=== PATIENT | female | born 1980 | race Caucasian/White ===

== ENCOUNTER 2020-01-15 14:15 | Outpatient (REF) | payer OTHER, MEDICAID, SELFPAY ==
[2020-01-15 15:33] LABS: Hematocrit 37.2 % (37-47); Hemoglobin 12.5 g/dl (12.0-16.0); Mean Corpuscular HGB Conc 33.6 g/dl (31.0-35.0); Mean Corpuscular Hemoglobin 29.8 pg (27.0-33.0); Mean Corpuscular Volume 88.6 fL (80-98); Mean Platelet Volume 10.2 fL (9.4-12.3); Platelet Count 272 X10*3/uL (160-400); Red Cell Distribution Width 12.2 % (11.0-16.0); White Blood Count 3.8 X10*3/uL (4.8-10.8)
[2020-01-15 16:40] LABS: HCG Quantitative < 2 mIU/mL; Thyroid Stimulating Hormone 1.36 mIU/mL (0.32-4.0)
[2020-01-16 09:27] LABS: CT PCR NOT DETECTED (Not Detect.); NG PCR NOT DETECTED (Not Detect.)
== END 2020-01-15 14:16 | disposition home or self-care (01) ==
LOC: HO.LAB 14:15
PROVIDERS: PCP Internal Medicine; Visit Provider Obstetrics & Gynecology
DX: R10.2 Pelvic and perineal pain (principal); R31.29 Other microscopic hematuria; N83.299 Other ovarian cyst, unspecified side; D21.9 Benign neoplasm of connective and other soft tissue, unspecified; N92.1 Excessive and frequent menstruation with irregular cycle
CPT/HCPCS: 36415; 81002; 81025; 84443; 84702; 85027; 87491; 87591

== ENCOUNTER 2020-01-27 07:38 | Outpatient (REF) | payer OTHER, MEDICAID, SELFPAY ==
--- NOTE | 2020-01-27 07:43 | CT_ITS ---
EXAMINATION: CT ABDOMEN AND PELVIS WITHOUT AND WITH CONTRAST CLINICAL INFORMATION: Microscopic hematuria COMPARISON: Pelvic ultrasound 12/09/2019, prior CT TECHNIQUE: Multidetector volumetric imaging was performed of the abdomen and pelvis before and after the IV administration of 85 mL of Omnipaque 350 intravenous contrast. Sagittal and coronal reformatted images were obtained on the technologist's workstation. This CT examination was performed using dose optimization techniques as appropriate, variously including the following: *Automated exposure control *Adjustment of mA and/or kV according to patient size (this includes techniques or standardized protocols for targeted exams where dose is matched to indication/reason for exam; i.e. extremities or head) *Use of iterative reconstruction technique DLP: 576 mGy-cm FINDINGS: LUNG BASES: The visualized lung bases are unremarkable. LIVER, GALLBLADDER, AND BILIARY TREE: The liver is normal in size, shape, and attenuation. No focal hepatic lesion or biliary ductal dilatation is present. Status post cholecystectomy. No biliary ductal dilatation. PANCREAS: Unremarkable SPLEEN: Unremarkable ADRENAL GLANDS: Unremarkable KIDNEYS AND URETERS: Symmetric bilateral renal enhancement. There is a small fat density cleft of the posterior aspect of the right mid kidney. No hydronephrosis, calculi, or mass seen. No filling defects in the renal collecting systems bilaterally. The proximal ureters are contrast opacified and normal in appearance. The mid to distal ureters are not contrast opacified and therefore not fully evaluated but they do not appear dilated. BLADDER: Unremarkable GASTROINTESTINAL TRACT: The stomach and small bowel are nondilated. There is a clip adjacent the cecum, suggesting prior appendectomy. No evidence of colitis or diverticulitis. Likely dropped cholecystectomy clips are seen in the right lower quadrant adjacent the cecum as well. ABDOMINAL WALL: Small fat-containing umbilical hernia. LYMPH NODES: No lymphadenopathy. VASCULAR: Unremarkable PELVIC VISCERA: Normal CT appearance of the uterus and ovaries. A 1.7 cm rim-enhancing cystic structure in the right ovary could represent a corpus luteum cyst. OSSEOUS STRUCTURES: Unremarkable CT/CT abdomen pelvis wo/w con IMPRESSION: No CT findings to explain hematuria. No radiopaque urolithiasis. No hydronephrosis. Symmetric bilateral renal enhancement. There are no filling defects in the renal collecting systems bilaterally and the proximal ureters are contrast opacified and normal in appearance. The mid to distal ureters are not contrast opacified and therefore not fully evaluated but they do not appear dilated. Consider retrograde examination for further evaluation as clinically indicated.
[2020-01-27] MEDS: iohexoL 350 MG/ML 100 ML INFUS..BTL IV (10:03)
== END 2020-01-27 07:39 | disposition home or self-care (01) ==
LOC: HO.CT 07:38
PROVIDERS: PCP Internal Medicine; Visit Provider Obstetrics & Gynecology
DX: R31.29 Other microscopic hematuria (principal)
CPT/HCPCS: 74178; Q9967

== ENCOUNTER 2020-02-09 14:17 | Outpatient (REF) | payer OTHER, MEDICAID, SELFPAY | END 2020-02-09 14:18 | disposition home or self-care (01) | LOC: HO.LAB 14:17 | PROVIDERS: Visit Provider Obstetrics & Gynecology | DX: N92.1 Excessive and frequent menstruation with irregular cycle (principal) | CPT/HCPCS: 58100; 88305 ==

== ENCOUNTER 2020-02-14 09:51 | Outpatient (REF) | payer OTHER, MEDICAID, SELFPAY | END 2020-02-14 09:52 | disposition home or self-care (01) | LOC: HO.LAB 09:51 | PROVIDERS: Visit Provider Internal Medicine | DX: Z20.828 Contact with and (suspected) exposure to other viral communicable diseases (principal) | CPT/HCPCS: C9803; U0003 ==

== ENCOUNTER → 2020-02-16 15:23 | Outpatient (BNVA) | payer OTHER, MEDICAID, SELFPAY | PROVIDERS: Visit Provider Obstetrics & Gynecology | DX: Z76.89 Persons encountering health services in other specified circumstances (principal) ==

== ENCOUNTER 2020-03-03 12:47 | Outpatient (REF) | payer OTHER, MEDICAID, SELFPAY ==
[2020-03-27 14:22] LABS: CT PCR NOT DETECTED (Not Detect.); NG PCR NOT DETECTED (Not Detect.)
== END 2020-03-03 12:48 | disposition home or self-care (01) ==
LOC: HO.LAB 12:47
PROVIDERS: Visit Provider Obstetrics & Gynecology
DX: N71.9 Inflammatory disease of uterus, unspecified (principal); R10.2 Pelvic and perineal pain
CPT/HCPCS: 87491; 87591; 96372

== ENCOUNTER → 2020-03-08 13:59 | Outpatient (BNVA) | payer OTHER, MEDICAID, SELFPAY | PROVIDERS: Visit Provider Obstetrics & Gynecology | DX: Z76.89 Persons encountering health services in other specified circumstances (principal) ==

== ENCOUNTER 2020-03-17 10:49 | Outpatient (REF) | payer OTHER, MEDICAID, SELFPAY ==
--- NOTE | 2020-03-17 | US_ITS ---
EXAMINATION: US PELVIS COMPLETE CLINICAL INFORMATION: Complex cyst right kidney. COMPARISON: Ultrasound pelvis 12/09/2019. TECHNIQUE: Transabdominal and transvaginal ultrasound of the pelvis is performed. FINDINGS: The uterus is anteverted, anteflexed measuring 10.2 x 4.0 x 4.8 cm in sagittal, AP and transverse dimension. Endometrial thickness is 0.3 cm. There is an IUD well located within the endometrial canal. There are hypoechoic lesions seen: 1. Lesion in the upper posterior body of the uterus measuring 1.0 0.7 x 0.9 cm. Previously it measured 1.0 x 0.7 x 0.9 cm. 2. Lesion in the right fundus of the uterus measuring 1.5 x 1.4 x 1.5 cm. Previously it measured 1.7 x 1.6 x 1.6 cm. 3. Calcification seen previously measuring 0.2 x 0.1 x 0.2 cm is not visualized on the present exam. The right ovary measures 3.7 x 2.8 x 2.4 cm and volume 13.0 mL. There is anechoic cyst measuring 2.5 x 1.9 x 2.2 cm Previously it measured 3.9 x 2.3 x 2.5 cm and volume 11.7 mL. The left ovary measures 2.3 x 2.5 x 2.1 cm and volume 6.3 mL and appears unremarkable. Previously it measured 2.4 x 1.6 x 1.7 cm and volume 3.4 mL. There is no free fluid in the cul-de-sac. US/US pelvic complete IMPRESSION: IUD is in correct position within the endometrial canal. There are 2 small fibroid lesions essentially stable. Previously seen calcification is not visualized at this time. Small right ovarian simple cyst measuring 2.5 cm. Left ovary is unremarkable. No free fluid in the cul-de-sac.
== END 2020-03-17 10:50 | disposition home or self-care (01) ==
LOC: HO.US 10:49
PROVIDERS: Visit Provider Obstetrics & Gynecology
DX: N83.291 Other ovarian cyst, right side (principal)
CPT/HCPCS: 76830; 76856

== ENCOUNTER → 2020-03-31 10:42 | Outpatient (BNVA) | payer OTHER, MEDICAID, SELFPAY | PROVIDERS: PCP Internal Medicine; Visit Provider Obstetrics & Gynecology | DX: Z76.89 Persons encountering health services in other specified circumstances (principal) ==

== ENCOUNTER → 2020-04-05 15:02 | Outpatient (BNVA) | payer OTHER, MEDICAID, SELFPAY | PROVIDERS: PCP Internal Medicine; Visit Provider Obstetrics & Gynecology ==

== ENCOUNTER 2020-04-22 15:27 | Outpatient (REF) | payer OTHER, MEDICAID, SELFPAY ==
[2020-04-25 02:08] LABS: HPV mRNA E6/E7 rflx Not Detected (Not Detected)
== END 2020-04-22 15:28 | disposition home or self-care (01) ==
LOC: HO.LAB 15:27
PROVIDERS: PCP Internal Medicine; Visit Provider Obstetrics & Gynecology
DX: Z01.419 Encounter for gynecological examination (general) (routine) without abnormal findings (principal); Z11.51 Encounter for screening for human papillomavirus (HPV)
CPT/HCPCS: 36415; 87624; 88142

== ENCOUNTER 2020-10-06 10:40 | Outpatient (REF) | payer OTHER, MEDICAID, SELFPAY ==
[2020-10-06 13:53] LABS: MANUAL DIFF FLAG NO
[2020-10-06 14:00] LABS: Basophils Percent Auto 0.4 % (0-2); Eosinophils Absolute Auto 0.1 X10*3/uL (0.0-0.4); Eosinophils Percent Auto 1.1 % (0-4); Hematocrit 42.8 % (37-47); Imm Gran Abs Auto 0.01 X10*3/uL (0.00-0.03); Imm Gran Pct Auto 0.2 % (0.0-0.4); Lymphocytes Absolute Auto 1.7 X10*3/uL (1.2-4.9); Lymphocytes Percent Auto 35.6 % (20-40); Mean Corpuscular HGB Conc 32.7 g/dl (31.0-35.0); Mean Corpuscular Hemoglobin 29.5 pg (27.0-33.0); Mean Corpuscular Volume 90.1 fL (80-98); Mean Platelet Volume 11.4 fL (9.4-12.3); Monocytes Absolute Auto 0.4 X10*3/uL (0.1-1.2); Monocytes Percent Auto 8.7 % (2-11); Neutrophils Absolute Auto 2.6 X10*3/uL (2.0-8.3); Platelet Count 276 X10*3/uL (160-400); Red Blood Count 4.75 X10*6/uL (4.20-5.50); Red Cell Distribution Width 12.2 % (11.0-16.0); White Blood Count 4.7 X10*3/uL (4.8-10.8)
[2020-10-06 14:38] LABS: Anion Gap 9 (12-20); Blood Urea Nitrogen 11 mg/dL (9-16); Calcium 9.3 mg/dL (8.4-10.2); Carbon Dioxide 27 mmol/L (22-29); Chloride 106 mmol/L (96-108); Estimated Glomerular Filt Rate > 60; Glucose Random 91 mg/dL (60-115); Potassium 4.3 mmol/L (3.3-5.1); Sodium 138 mmol/L (135-145)
[2020-10-06 15:09] LABS: Erythrocyte Sedimentation Rate 7 MM/HR (0-20)
== END 2020-10-06 10:41 | disposition home or self-care (01) ==
LOC: HO.HMGCLDS 10:40
PROVIDERS: PCP Internal Medicine; Visit Provider Nurse Practitioner Family
DX: H53.8 Other visual disturbances (principal); R51.9 Headache, unspecified
CPT/HCPCS: 36415; 80048; 85025; 85652

== ENCOUNTER 2020-10-20 10:55 | Outpatient (REF) | payer OTHER, MEDICAID, SELFPAY ==
[2020-10-20 11:39] LABS: MANUAL DIFF FLAG NO
[2020-10-20 11:45] LABS: Basophils Percent Auto 0.5 % (0-2); Eosinophils Percent Auto 0.9 % (0-4); Hematocrit 40.9 % (37-47); Hemoglobin 13.7 g/dl (12.0-16.0); Imm Gran Abs Auto 0.01 X10*3/uL (0.00-0.03); Imm Gran Pct Auto 0.2 % (0.0-0.4); Lymphocytes Absolute Auto 1.7 X10*3/uL (1.2-4.9); Lymphocytes Percent Auto 39.1 % (20-40); Mean Corpuscular HGB Conc 33.5 g/dl (31.0-35.0); Mean Corpuscular Hemoglobin 29.5 pg (27.0-33.0); Mean Platelet Volume 10.6 fL (9.4-12.3); Monocytes Absolute Auto 0.5 X10*3/uL (0.1-1.2); Monocytes Percent Auto 10.5 % (2-11); Neutrophils Absolute Auto 2.1 X10*3/uL (2.0-8.3); Neutrophils Percent Auto 48.8 % (45-73); Platelet Count 256 X10*3/uL (160-400); Red Blood Count 4.65 X10*6/uL (4.20-5.50); White Blood Count 4.4 X10*3/uL (4.8-10.8)
[2020-10-20 12:13] LABS: Alanine Aminotransferase 14 U/L (0-31); Albumin Level 4.4 g/dL (3.5-5.0); Alkaline Phosphatase 67 U/L (39-117); Anion Gap 10 (12-20); Aspartate Amino Transferase 18 U/L (5-31); Bilirubin Total 1.1 mg/dL (0.0-1.0); Blood Urea Nitrogen 10 mg/dL (9-16); Calcium 9.2 mg/dL (8.4-10.2); Carbon Dioxide 28 mmol/L (22-29); Chloride 105 mmol/L (96-108); Cholesterol 161 mg/dL; Estimated Glomerular Filt Rate > 60; Glucose Fasting 92 mg/dL (60-99); HDL Cholesterol 37 mg/dL; LDL Cholesterol Calculated 112 mg/dl; Potassium 4.5 mmol/L (3.3-5.1); Sodium 138 mmol/L (135-145); Total Protein 7.3 g/dL (6.5-8.0); Triglycerides 62 mg/dL
[2020-10-20 12:22] LABS: Thyroid Stimulating Hormone 1.87 uIU/mL (0.32-4.0)
== END 2020-10-20 10:56 | disposition home or self-care (01) ==
LOC: HO.LAB 10:55
PROVIDERS: PCP Internal Medicine; Visit Provider Internal Medicine
DX: Z00.00 Encounter for general adult medical examination without abnormal findings (principal); E03.9 Hypothyroidism, unspecified; E11.9 Type 2 diabetes mellitus without complications
CPT/HCPCS: 36415; 80053; 80061; 84443; 85025

== ENCOUNTER 2021-04-07 09:34 | Outpatient (REF) | payer OTHER, MEDICAID, SELFPAY ==
[2021-04-07 10:05] LABS: MANUAL DIFF FLAG NO
[2021-04-07 10:44] LABS: Basophils Percent Auto 0.8 % (0-2); Eosinophils Absolute Auto 0.1 X10*3/uL (0.0-0.4); Eosinophils Percent Auto 1.8 % (0-4); Hematocrit 43.6 % (37.0-47.0); Hemoglobin 14.5 g/dl (12.0-16.0); Imm Gran Abs Auto 0.01 X10*3/uL (0.00-0.03); Imm Gran Pct Auto 0.3 % (0.0-0.4); Lymphocytes Absolute Auto 1.7 X10*3/uL (1.2-4.9); Lymphocytes Percent Auto 44.5 % (20-40); Mean Corpuscular HGB Conc 33.3 g/dl (31.0-35.0); Mean Corpuscular Hemoglobin 29.7 pg (27.0-33.0); Mean Corpuscular Volume 89.2 fL (80.0-98.0); Mean Platelet Volume 10.6 fL (9.4-12.3); Monocytes Absolute Auto 0.4 X10*3/uL (0.1-1.2); Monocytes Percent Auto 10.7 % (2-11); Neutrophils Absolute Auto 1.6 x10*3/uL (2.0-8.3); Neutrophils Percent Auto 41.9 % (45-73); Platelet Count 275 X10*3/uL (160-400); Red Blood Count 4.89 X10*6/uL (4.20-5.50); White Blood Count 3.8 X10*3/uL (4.8-10.8)
[2021-04-07 11:31] LABS: Alanine Aminotransferase 17 U/L (0-31); Albumin Level 4.6 g/dL (3.5-5.0); Alkaline Phosphatase 57 U/L (39-117); Anion Gap 10 (12-20); Aspartate Amino Transferase 21 U/L (5-31); Bilirubin Total 1.2 mg/dL (0.0-1.0); Blood Urea Nitrogen 11 mg/dL (9-16); Calcium 9.7 mg/dL (8.4-10.2); Carbon Dioxide 27 mmol/L (22-29); Chloride 106 mmol/L (96-108); Cholesterol 157 mg/dL; Estimated Glomerular Filt Rate > 60; Glucose Fasting 88 mg/dL (60-99); HDL Cholesterol 39 mg/dL; LDL Cholesterol Calculated 104 mg/dl; Potassium 4.9 mmol/L (3.3-5.1); Sodium 138 mmol/L (135-145); Total Protein 7.9 g/dL (6.5-8.0); Triglycerides 72 mg/dL
== END 2021-04-07 09:35 | disposition home or self-care (01) ==
LOC: HO.LAB 09:34
PROVIDERS: PCP Internal Medicine; Visit Provider Internal Medicine
DX: Z00.00 Encounter for general adult medical examination without abnormal findings (principal); R10.9 Unspecified abdominal pain; Z13.0 Encounter for screening for diseases of the blood and blood-forming organs and certain disorders involving the immune mechanism; Z13.220 Encounter for screening for lipoid disorders
CPT/HCPCS: 36415; 80053; 80061; 85025

== ENCOUNTER → 2021-05-19 08:25 | Outpatient (BNVA) | payer OTHER, MEDICAID, SELFPAY | PROVIDERS: PCP Internal Medicine; Visit Provider Obstetrics & Gynecology ==

== ENCOUNTER 2021-05-23 07:44 | Day surgery (SDC) | payer OTHER, MEDICAID, SELFPAY ==
[2021-05-17 14:18] VITALS: BMI 22.3
[2021-05-23 08:45] VITALS: BP 120/70; PULSE 56; RESP 16; TEMP 36.7; O2SAT 100
[2021-05-23 08:55] LABS: UPreg QC Valid YES; Urine Pregnancy NEGATIVE (NEGATIVE)
[2021-05-23] MEDS: Lactated Ringers 1,000 ML 50 ML IVCONT (09:00)
--- NOTE | 2021-05-23 09:02 | HO.ANESPROP2 ---
HPI - Anesthesia Eval Consult details Narrative: Abdominal Pain, GERD PMFSH Active Problems Active Problems: All Active Problems (Updated 05/19/21 @ 08:44 by Gita Dinh MA) Pelvic pain (Acute) Complex ovarian cyst (Acute) Myoma (Acute) Menometrorrhagia (Acute) Microscopic hematuria (Acute) IUD check up (Acute) Well woman exam (Acute) Headache (Acute) Blurred vision (Acute) Paresthesia (Acute) Sinusitis (Acute) Physical exam (Acute) Abdominal pain (Acute) Past Medical History Medical History COVID-19 vaccine series completed GERD (gastroesophageal reflux disease) Hx of ectopic Hx of migraine headaches Family History Family History Mother Hyperlipemia Family history of problems with anesthesia: No Surgical History Surgical History H/O colonoscopy History of esophagogastroduodenoscopy (EGD) History of salpingectomy Hx of cholecystectomy History of Problems with Anesthesia: No Social History Social History Housing: House Are you a primary health care facility administrator to a significant other at home: No Do you presently have visiting nurse or other home services: No Alcohol intake: never Patient Tobacco Use Status: Never used Tobacco e-Cigarette/Vaping Use: Never Used Second Hand Smoke Exposure: No Use of substances other than those prescribed or required for medical reasons: No Have you been hit, kicked, punched, or otherwise hurt by someone within the past year? If so, by whom?: No Are you DNR?: No Advance Directives: No Advance Directives Information Provided: Yes (brochure mailed) Advance Directives on File: No Recently lost weight without trying: No Eating poorly because of decreased appetite: No Nutrition Risks: No Nutritional Risk Patient : No FDLMP: 04/19/21 : No Poor oral hygiene: No service: No Current occupational status: employed Sexual orientation: Straight/Heterosexual Gender identity: Female Cognitive needs: No Hearing needs: No Vision needs: No Meds Allergies Allergy/AdvReac Type Severity Reaction Status Date / Time No Known Allergies Allergy Verified 05/23/21 08:41 [No Known Allergies*] Active Medications: Current Medications Lactated Ringer's (Lr) 1,000 mls @ 50 mls/hr IVCONT .Q20H MARGARITO Last Admin: 05/23/21 09:00 Dose: 50 mls/hr Documented by: Home Medications Medication Instructions Recorded Confirmed Last Taken Type levonorgestrel 20 mcg/24 hours (7 1 device VAGINAL ONCE 04/05/20 05/19/21 Unknown History yrs) 52 mg intrauterine device amitriptyline 50 mg tablet 1 tab PO BEDTIME 05/17/21 05/19/21 Unknown History dicyclomine 10 mg capsule mg PO 05/19/21 05/19/21 Unknown History Exam Exam Date and Time: May 23, [id number] Height,Weight and Vital Signs: Height 5 ft 4 in Weight 58.967 kg Last Vital Signs Temp 98.1 F 05/23/21 08:45 Pulse 56 05/23/21 08:45 Resp 16 05/23/21 08:45 BP 120/70 05/23/21 08:45 Pulse Ox 100 05/23/21 08:45 Pertinent Lab Results Pertinent Lab Results: Laboratory Tests 05/23/21 08:40 Urine Test NEGATIVE Airway Mallampati Class: II TM Dist: >3cm Neck ROM: Full Loose/Missing/Broken Teeth: No Heart: [id number] Lungs: cta b/l Assessment and Plan Assessment Anesthesia Assessment: Anesthesia Plan Discussed and Chart Reviewed Final Anesthetic Review Family History of Problems with Anesthesia: No History of Problems with Anesthesia: No NPO: Yes ASA Class: II Final Preanesthetic Review: No Changes in Pt Med Stat, Meds/Allgs Chart Reviewed, Consent Obtained/Reviewed and Anes Risks/Benef Reviewed Patient Risk: Intermediate Procedure Risk: Low Assessment/Block/Sedation in SS: Assess/Block/Sedation-SS Anesthetic Plan Anesthetic Plan: MAC: and Agree w/ Assess. and Plan Disposition: Standard PACU
[2021-05-23 10:20] VITALS: BP 85/31; PULSE 60; RESP 12; TEMP 36.8; O2SAT 98
--- NOTE | 2021-05-23 10:23 | P.BOP_ITS ---
Brief Operative Note Date of Service: 05/23/21 Pre-op diagnosis: Abdominal pain Post-op diagnosis: other (Hiatal hernia) Procedure: EGD with biopsies Surgeon: Jensen Minor Anesthesia: MAC Was an Spark Plug Assembler used for this Procedure?: No Estimated blood loss (mL): 2.0 Pathology: other (A. Gastric antrum) Condition: stable Disposition: PACU
[2021-05-23 10:35] VITALS: BP 90/39; PULSE 55; RESP 18; O2SAT 100
[2021-05-23 10:50] VITALS: BP 108/59; PULSE 63; RESP 18; TEMP 36.7; O2SAT 100
--- NOTE | 2021-05-23 11:05 | OP_ITS ---
SURGEON: Jensen Minor MD INDICATIONS: The patient presents for evaluation of abdominal pain. Full consent was obtained from her for this, including risks of bleeding and perforation. PREOPERATIVE DIAGNOSIS: Abdominal pain. POSTOPERATIVE DIAGNOSIS: PROCEDURE PERFORMED: ESTIMATED BLOOD LOSS: COMPLICATIONS: ANESTHESIA: Monitored anesthesia care. ASSISTANTS: SPECIMENS: PROCEDURE: Esophagogastroduodenoscopy with biopsies. POSTOPERATIVE DIAGNOSES: Abdominal pain, small hiatal hernia. DESCRIPTION OF PROCEDURE: The patient was placed in the left lateral decubitus position. The Olympus video gastroscope was passed in the posterior oropharynx and upper esophagus under direct vision. The scope was passed slowly into the distal esophagus. The gastroesophageal junction appeared at 35 cm. This area appeared normal without any sign of esophagitis nor David's mucosa. There was a small hiatal hernia. The scope was advanced to pylorus and the duodenum was cannulated the descending portion. The duodenum including the bulb appeared normal without mass or ulceration. Scope withdrawn back in the stomach. The gastric antrum and body appeared normal with good peristalsis. The scope was retroflexed visualizing the proximal stomach carefully, which appeared normal, without any sign of mass or ulceration. The scope was straightened. Biopsies were obtained from the gastric antrum. The scope was withdrawn back to the esophagus. The esophageal mucosa appeared normal. The scope was withdrawn from the patient. She tolerated the procedure well and was returned to recovery area in stable condition. IMPRESSION: 1. Hiatal hernia. 2. Rule out Helicobacter pylori. PLAN: The results of biopsy will be checked. At this point, she continues to have problems despite using omeprazole daily and p.r.n. dicyclomine. As such, I have advised her to stop the omeprazole to see whether or not she really needs that given today's basically normal exam. I did advise her to try dicyclomine prior to each meal to see if that might help alleviate her symptoms that bother her postprandially. She has already had a cholecystectomy. She was treated for H pylori once in the past. I will see her in the office for followup. MD POOL Velez/REGIS / [phone]
== END 2021-05-23 11:48 | disposition home or self-care (01) ==
PROVIDERS: PCP Internal Medicine; Visit Provider Internal Medicine
PROC: 0DJ08ZZ Inspection of Upper Intestinal Tract, Via Natural or Artificial Opening Endoscopic (ICD-10-PCS; CPT 43235; principal; 2021-05-23 09:20)
DX: R10.84 Generalized abdominal pain (principal); K21.9 Gastro-esophageal reflux disease without esophagitis; K44.9 Diaphragmatic hernia without obstruction or gangrene; Z79.899 Other long term (current) drug therapy; Z90.49 Acquired absence of other specified parts of digestive tract
CPT/HCPCS: 43239; 81025; 88305; 88342; J2250

== ENCOUNTER 2021-06-14 07:25 | Outpatient (REF) | payer OTHER, MEDICAID, SELFPAY ==
--- NOTE | ~2021-06-14 | MM_ITS ---
EXAMINATION: MM SCREENING DIGITAL BREAST TOMOSYNTHESIS, BILATERAL CLINICAL INFORMATION: Screening. Asymptomatic. Age 41. No prior breast imaging. The lifetime risk of breast cancer based on the Tyrer-Cuzick Model is 13%. COMPARISON: None (current study represents initial baseline exam). TECHNIQUE: Digital breast tomosynthesis is performed in both the craniocaudal and mediolateral oblique views along with computer-aided detection (CAD). Synthesized 2D images are generated from the tomosynthesis. FINDINGS: There are scattered areas of fibroglandular density (ACR BI-RADS breast composition Category b). Breast tissue composition borders on heterogeneously dense. There is no mass or architectural abnormality. The axilla and skin contours are unremarkable. No abnormal calcifications on right. Left breast has loosely grouped calcifications mid-posterior 2:30-3:00. Patient will be recalled for additional magnification views to fully characterize baseline appearance. MM/MM tomosynthesis screening BI IMPRESSION: Left: -Loosely grouped calcifications mid-posterior 2:30-3:00 position. Right: -No mammographic evidence of malignancy. ASSESSMENT: BI-RADS 0: Incomplete - Need Additional Imaging Evaluation RECOMMENDATION: 1. Additional views of the left breast (magnification CC, magnification ML). 2. Radiology department staff will contact the patient for additional imaging. This patient's information was entered into a reminder system with a target due date for their next mammogram.
== END 2021-06-14 07:26 | disposition home or self-care (01) ==
LOC: HO.MAMMO 07:25
PROVIDERS: Visit Provider Obstetrics & Gynecology
DX: Z12.31 Encounter for screening mammogram for malignant neoplasm of breast (principal)
CPT/HCPCS: 77063; 77067

== ENCOUNTER 2021-06-21 10:24 | Outpatient (REF) | payer OTHER, MEDICAID, SELFPAY ==
--- NOTE | ~2021-06-21 | MM_ITS ---
EXAMINATION: MM DIAGNOSTIC DIGITAL MAMMOGRAPHY, LEFT CLINICAL INFORMATION: Recall from baseline screening for loosely grouped calcifications mid upper outer left breast. TC score 13%. COMPARISON: Mammography: 06/14/2021 (baseline, BI-RADS 0). TECHNIQUE: Digital mammography is performed in the following views: Magnification CC, magnification ML. FINDINGS: There are scattered areas of fibroglandular density (ACR BI-RADS breast composition Category b). The additional magnification views demonstrate scattered round calcifications mid upper outer breast which vary in size. There are no kamran or branching types or ductal distribution. Chronicity is unknown. Results are discussed with the patient at time of visit. Management plan is for short interval follow-up left mammography to include magnification views in 6 months. MM/MM added views LT IMPRESSION: Probable benign round calcifications mid upper outer left breast as noted on baseline exam. ASSESSMENT: BI-RADS 3: Probably Benign RECOMMENDATION: Diagnostic left mammography in 6 months. This patient's information was entered into a reminder system with a target due date for their next mammogram.
== END 2021-06-21 10:25 | disposition home or self-care (01) ==
LOC: HO.MAMMO 10:24
PROVIDERS: Visit Provider Obstetrics & Gynecology
DX: R92.1 Mammographic calcification found on diagnostic imaging of breast (principal)
CPT/HCPCS: 77065

== ENCOUNTER 2021-08-09 12:11 | Emergency (ER) | payer OTHER, MEDICAID, SELFPAY ==
[2021-08-09 13:24] VITALS: BP 145/66; PULSE 72; RESP 8; TEMP 36.8; O2SAT 98; BMI 21.6
[2021-08-09 13:47] LABS: COVID-19 Test Negative (Negative); IDNOW Serial# 16C4AD1C
--- NOTE | 2021-08-09 15:34 | ED.URI ---
HPI - URI/Sore Throat General Chief Complaint: Upper Respiratory Symptoms Stated Complaint: Sinus infection/ear pain Time Seen by Provider: 08/09/21 15:07 Source: patient Mode of arrival: ambulatory Limitations: no limitations History of Present Illness HPI Narrative: 41-year-old female who presents emergency department for evaluation possible sinus infection. The patient states she has had multiple sinus infections over the past several months. She states that she completed a course of amoxicillin approximately 1 month prior with improvement of her sinus pain while she was on the medication but she states that her sinus pain is not return she states that since Sunday (5 days prior to evaluation) she has developed a pressure-like sensation in her face. She points to her frontal and maxillary regions bilaterally when asked to localize the pain. She states the pain is a constant pressure-like pain which is 10/10 at its worst. She states she had a fever as high as 101 degrees F at home. She also had associated chills. She complains of rhinorrhea and a sore throat she denied cough. She states that today she developed some mild chest pain in her anterior chest which she describes as a needle-like sensation which is worse with breathing. She has also had some mild shortness of breath. She also states she is sneezing frequently. She denied nausea, vomiting, diarrhea Related Data Home Medications Medication Instructions Recorded Confirmed levonorgestrel 20 mcg/24 hours (7 1 device VAGINAL ONCE 04/05/20 05/19/21 yrs) 52 mg intrauterine device amitriptyline 50 mg tablet 1 tab PO BEDTIME 05/17/21 05/19/21 dicyclomine 10 mg capsule mg PO 05/19/21 05/19/21 Previous Rx's Medication Instructions Recorded omeprazole 20 mg capsule,delayed 20 mg PO DAILY #30 cap 04/07/21 release azithromycin 250 mg tablet See Rx Instructions PO .COMPLEX #6 05/19/21 tab amoxicillin 250 mg capsule 250 mg PO Q8H #30 cap 06/10/21 amoxicillin 875 mg-potassium 1 tab PO Q12H 10 Days #20 tab 08/09/21 clavulanate 125 mg tablet prednisone 20 mg tablet 60 mg PO DAILY 5 Days #15 tab 08/09/21 Allergies Allergy/AdvReac Type Severity Reaction Status Date / Time No Known Allergies Allergy Verified 08/09/21 13:23 [No Known Allergies*] Review of Systems Review of Systems: Yes all other systems are reviewed and are negative Neurologic: Reports Abnormal speech present [facility] Past Medical History [facility] Narrative: Social history: She denies tobacco use, alcohol use and drug use. Medical History COVID-19 vaccine series completed GERD (gastroesophageal reflux disease) Hx of ectopic Hx of migraine headaches Surgical History H/O colonoscopy History of esophagogastroduodenoscopy (EGD) History of salpingectomy Hx of cholecystectomy Family History Family History Mother Hyperlipemia Social History Social History Housing: House Are you a primary cardiac care nurse to a significant other at home: No Do you presently have visiting nurse or other home services: No Alcohol intake: never Patient Tobacco Use Status: Never used Tobacco e-Cigarette/Vaping Use: Never Used Second Hand Smoke Exposure: No Advance Directives: No Advance Directives Information Provided: No service: No Current occupational status: employed Sexual orientation: Straight/Heterosexual Gender identity: Female Cognitive needs: No Hearing needs: No Vision needs: No Physical Exam Vital Signs: Vital Signs: Last Vital Signs Temp 98.3 F 08/09/21 13:24 Pulse 72 08/09/21 13:24 Resp 8 L 08/09/21 13:24 BP 145/66 H 08/09/21 13:24 Pulse Ox 98 08/09/21 13:24 BMI result Body Mass Index 21.6 Const: General: cooperative, no acute distress, well developed, alert and awake Orientation/consciousness: oriented to person HEENT: Head: Yes normal to inspection, Yes normocephalic and Yes atraumatic Ears: hearing grossly normal bilaterally General nose exam: Normal external nose present Face and sinus: Yes sinus tenderness (Mid frontal and bilateral maxillary tenderness, moderate) Mouth: Normal oral and palatal mucosa present, lip normal, tongue normal, oropharynx normal and moist mucous membranes Throat: Yes posterior oropharynx normal, Yes tonsils normal and Yes uvula midline Eyes: General: appearance normal, both eyes and all related structures Eyelids: Yes eyelids normal Conjunctivae: conjunctivae normal Sclerae: sclerae normal Corneas: corneas normal Pupils: Equal, round and reactive pupils present Neck: Neck: Yes normal visual inspection, Yes no lymphadenopathy, Yes trachea midline and Yes supple Thyroid: Thyroid normal Lymphatic: no lymphadenopathy noted Chest: Chest palpation & inspection: normal inspection of the chest and normal palpation of entire chest wall Resp: Effort & Inspection: normal respiratory effort and able to speak in complete sentences Auscultation: clear to auscultation bilaterally Cardio: Rate: regular rate Rhythm: regular rhythm Heart sounds: S1 normal heart sound present, S2 normal heart sound present and no murmurs GI: Inspection: Yes normal to inspection Palpation (GI): Soft to palpation, nontender and No hepatosplenomegaly present Auscultation: normal bowel sounds : General: Yes no CVA tenderness Back/Spine/Pelvis: Back: no CVA tenderness Thoracic/Lumbar Spine: thoracic and lumbar spine normal to inspection Skin: General skin exam: no rashes or lesions noted, no erythema and no jaundice Lesions: no lesions Rashes: no rashes Trauma: no lacerations or abrasions Wounds: no wounds Neuro: General: oriented to person, moves all extremities and no focal motor deficits Cranial nerves: Yes Equal, round and reactive pupils present Cognition (Neuro): normal cognition Speech: Abnormal speech present Motor exam (neuro): Motor abnormalities not present Extrem: General: Yes normal to inspection, Yes no pedal edema and Yes no calf tenderness Right upper extremity: normal to inspection Left upper extremity: normal to inspection Right lower extremity: normal to inspection Left lower extremity: normal to inspection Psych: Appearance: grossly normal Mental Status: mental status grossly normal Speech and movement: Normal speech and movement present Affect: normal affect Attitude: cooperative Thought process: Normal thought process present Insight: Good insight present (Psych) Course Course Course Narrative: 41-year-old female who presents emergency department for evaluation of 5 days of facial pain which is similar to the pain that she has had in the past with her sinus infections . She states she completed a course of antibiotics approximately 1 month prior now her symptoms have returned. She did have a fever and chills at home. She has also had rhinorrhea and a sore throat. Initial vital signs were unremarkable. Her exam did reveal tenderness palpation of her mid frontal sinus and her maxillary sinuses bilaterally. Patient's presentation is consistent with recurrent sinusitis. The patient will be treated with Augmentin 875/125 every 12 hours times 10 days and prednisone 60 mg once a day for 5 days. She was given printed and verbal instructions and discharged home. MDM - URI/Sore Throat Lab Data Labs: Lab Results 08/09/21 Range/Units 13:28 COVID-19 ([facility]) Negative (Negative) COVID-19 Clin Com See Note Discharge Plan Discharge Clinical Impression: Sinusitis Patient Disposition: Home, Self-Care Instructions: Sinusitis (ED) Additional Instructions: Your exam did reveal tenderness with palpation over your frontal sinuses and your maxillary sinuses bilaterally. Take Augmentin (amoxicillin/claveronic acid) 875 mg/125 mg every 12 hours for 10 days. Take prednisone 20 mg pills, 3 pills once a day for 5 days. This is a strong steroid anti-inflammatory pain medication. While you taking prednisone do not take any [id number] anti-inflammatory medications such as ibuprofen, Motrin, Advil, Aleve, naproxen. Take Tylenol (acetaminophen) 500 mg pills, 2 pills every 4 to 6 hours as needed for pain. Your COVID 19 test was negative. Follow-up with your doctor in 2 days. Please return to the emergency department if your symptoms get worse or if you develop any symptoms that are concerning to you. Prescriptions: New amoxicillin-pot clavulanate 875-125 mg tablet 1 tab PO Q12H 10 Days Qty: 20 0RF prednisone 20 mg tablet 60 mg PO DAILY 5 Days Qty: 15 0RF No Action amoxicillin 250 mg capsule 250 mg PO Q8H Qty: 30 0RF amitriptyline 50 mg tablet 1 tab PO BEDTIME 0RF omeprazole 20 mg capsule,delayed release(DR/EC) 20 mg PO DAILY Qty: 30 3RF azithromycin 250 mg tablet See Rx Instructions PO .COMPLEX Qty: 6 0RF Rx Instructions: take 500 mg today (day 1), then 250 mg for 4 days (days 2-5) PO Mirena 20 mcg/24 hours (6 yrs) 52 mg intrauterine device 1 device vaginal ONCE 0RF dicyclomine 10 mg capsule PO 0RF Stand Alone Forms: Work/School Release
== END 2021-08-09 15:58 | disposition home or self-care (01) ==
PROVIDERS: Emergency Provider Emergency Medicine Emergency Medical Services; PCP Internal Medicine
DX: J32.9 Chronic sinusitis, unspecified (principal); R51.9 Headache, unspecified; H92.03 Otalgia, bilateral; R05.9 Cough, unspecified; R50.9 Fever, unspecified; Z20.822 Contact with and (suspected) exposure to COVID-19; Z79.899 Other long term (current) drug therapy
CPT/HCPCS: 87635; 99283

== ENCOUNTER 2021-11-27 10:23 | Emergency (ER) | payer OTHER, MEDICAID, SELFPAY ==
--- NOTE | ~2021-11-27 | CT_ITS ---
EXAMINATION: CT HEAD WITHOUT CONTRAST CLINICAL INFORMATION: Headache, pressure COMPARISON: None TECHNIQUE: Contiguous axial imaging was performed from the skull base to vertex without intravenous administration of contrast. This CT examination was performed using dose optimization techniques as appropriate, variously including the following: *Automated exposure control *Adjustment of mA and/or kV according to patient size (this includes techniques or standardized protocols for targeted exams where dose is matched to indication/reason for exam; i.e. extremities or head) *Use of iterative reconstruction technique DLP: 590 mGy-cm The ventricles and cisterns are normal in size, shape and configuration. There are no extra-axial surface collections or evidence of hemorrhage. Midline structures are central. The ba/white differentiation is maintained. The orbits appear normal bilaterally. The paranasal sinuses are clear. No fractures are seen. CT/CT head/brain wo IV con IMPRESSION: No acute intracranial pathology.
[2021-11-27 10:43] VITALS: BP 141/91; PULSE 90; RESP 16; TEMP 35.6; O2SAT 100; BMI 22.8
[2021-11-27 12:27] LABS: MANUAL DIFF FLAG NO
[2021-11-27 12:28] LABS: Basophils Percent Auto 0.3 % (0-2); Eosinophils Percent Auto 0.6 % (0-4); Hematocrit 39.3 % (37.0-47.0); Hemoglobin 13.6 g/dl (12.0-16.0); Imm Gran Abs Auto 0.02 X10*3/uL (0.00-0.03); Imm Gran Pct Auto 0.3 % (0.0-0.4); Mean Corpuscular HGB Conc 34.6 g/dl (31.0-35.0); Mean Corpuscular Hemoglobin 30.2 pg (27.0-33.0); Mean Corpuscular Volume 87.3 fL (80.0-98.0); Monocytes Absolute Auto 0.5 X10*3/uL (0.1-1.2); Monocytes Percent Auto 8.4 % (2-11); Neutrophils Absolute Auto 3.7 x10*3/uL (2.0-8.3); Neutrophils Percent Auto 59.4 % (45-73); Platelet Count 230 X10*3/uL (160-400); Red Cell Distribution Width 12.1 % (11.0-16.0); White Blood Count 6.3 X10*3/uL (4.8-10.8)
[2021-11-27 13:11] LABS: Alanine Aminotransferase 10 U/L (0-31); Albumin Level 4.2 g/dL (3.5-5.0); Alkaline Phosphatase 58 U/L (39-117); Anion Gap 13 (12-20); Aspartate Amino Transferase 13 U/L (5-31); Bilirubin Total 0.4 mg/dL (0.0-1.0); Blood Urea Nitrogen 6 mg/dL (9-16); Calcium 9.3 mg/dL (8.4-10.2); Carbon Dioxide 27 mmol/L (22-29); Chloride 103 mmol/L (96-108); Creatinine Clr Calc Pharmacy 89.7; Estimated Glomerular Filt Rate > 60; Glucose Random 98 mg/dL (60-115); Potassium 4.1 mmol/L (3.3-5.1); Sodium 139 mmol/L (135-145); Total Protein 7.2 g/dL (6.5-8.0)
--- NOTE | 2021-11-27 17:17 | ED_ITS ---
HPI - General Adult General Chief complaint: Headache Stated complaint: Head pressure/Blurry vision/Dizziness Time Seen by Provider: 11/27/21 10:43 Source: patient Mode of arrival: ambulatory Limitations: no limitations History of Present Illness HPI narrative: Patient is a 41 year old female presenting to the emergency department today with intermittent dizziness, nausea, blurred vision, and a headache. Patient states that she has been seen by an ENT specialist who stated that her issue isn't an ENT issue and he believes it is a different manifestation of her migraines. Patient states that she does have a history of migraines and follows with Dr. Eddy for them. Patient denies any current dizziness, lightheadedness, abdominal pain, nausea, vomiting, fever, chills, blurry vision, double vision, loss of vision, chest pain, difficulty breathing, shortness of breath, back pain, night sweats, pain with urination, increased urinary frequency, increased urinary urgency, blood in her urine or stool, syncope or a near syncopal episode, recent trauma or falls, bowel incontinence, bladder incontinence, bowel retention, bladder retention, or any other complaints at this time. Onset (ago): hour(s) Location: head Radiation: non-radiation Severity: mild Severity scale (1-10): 2 Quality: aching and dull Pain Consistency: intermittent Relieving factors: none Exacerbating factors: none Associated symptoms: denies other symptoms Treatments prior to arrival: none Related Data Home Medications Medication Instructions Recorded Confirmed levonorgestrel 20 mcg/24 hours (7 1 device vaginal ONCE 04/05/20 10/11/21 yrs) 52 mg intrauterine device amitriptyline 50 mg tablet 1 tab PO BEDTIME 05/17/21 10/11/21 dicyclomine 10 mg capsule mg PO 05/19/21 10/11/21 Previous Rx's Medication Instructions Recorded omeprazole 20 mg capsule,delayed 20 mg PO DAILY #30 caps 04/07/21 release ciclopirox 0.77 % topical cream 1 appl topical BID #90 grams 09/30/21 tizanidine 4 mg tablet 4 mg PO Q8H PRN muscle spasticity 10/11/21 #60 tabs nirmatrelvir 300 mg (150 mg 3 ea PO PER PKG DIR 5 days #30 ea 10/22/21 x2)-ritonavir 100 mg tablet,dose pack(EUA) (Paxlovid) Allergies Allergy/AdvReac Type Severity Reaction Status Date / Time No Known Allergies Allergy Verified 10/11/21 13:29 [No Known Allergies*] Review of Systems Constitutional: Constitutional: Reports no additional constitutional complaints, Denies chills, Denies fever(s) and Denies night sweats Eyes: Eyes: Reports no additional eye complaints, Denies blurry vision, Denies change in vision, Denies diplopia, Denies eye discharge, Denies loss of vision and Denies eye pain ENT: Denies dizziness Cardiovascular: Cardiovascular: Reports no additional cardiovascular complaints, Denies chest pain, Denies lightheadedness, Denies Loss of Consciousness and Denies dyspnea Respiratory: Respiratory: Reports no additional respiratory complaints and Denies dyspnea Gastrointestinal: Gastrointestinal: Reports no additional gastrointestinal complaints, Denies abdominal pain, Denies melena, Denies hematochezia, Denies change in bowel habits and Denies change in stool character Genitourinary: Genitourinary: Denies hematuria, Denies urinary frequency, Denies dysuria, Denies urinary incontinence, Denies urinary hesitancy and Denies urinary urgency Musculoskeletal: Musculoskeletal: Reports no additional musculoskeletal complaints, Denies numbness and Denies tingling Neurologic: Denies dizziness, Denies loss of vision, Denies numbness and Denies tingling Psychiatric: Psychiatric: Reports no additional psychiatric complaints Endocrine: Endocrine: Reports no additional endocrine complaints Hematologic/Lymphatic: Hematologic/Lymphatic: Reports no additional hematologic/lymphatic complaints Allergic/Immunologic: Allergic/Immunologic: Reports no additional allergic/immunologic complaints PMFSH Past Medical History Attestation statement: The following information was validated with the patient. Source: old records reviewed Medical History COVID-19 vaccine series completed GERD (gastroesophageal reflux disease) Hx of ectopic Hx of migraine headaches Surgical History H/O colonoscopy History of esophagogastroduodenoscopy (EGD) History of salpingectomy Hx of cholecystectomy Family History Family History Mother Hyperlipemia Social History Social History Housing: House Are you a primary medicare nurse to a significant other at home: No Do you presently have visiting nurse or other home services: No Alcohol intake: never Patient Tobacco Use Status: Never used Tobacco e-Cigarette/Vaping Use: Never Used Second Hand Smoke Exposure: No Use of substances other than those prescribed or required for medical reasons: No Advance Directives: No Advance Directives Information Provided: No service: No Current occupational status: employed Sexual orientation: Straight/Heterosexual Gender identity: Female Cognitive needs: No Hearing needs: No Vision needs: No Physical Exam ED Vital Signs: Vital Signs - 24 hr 11/27/21 10:43 11/27/21 17:19 11/27/21 19:41 Temperature 96.0 F L 98.1 F Pulse Rate 90 78 66 Respiratory Rate 16 20 18 Blood Pressure 141/91 H 139/92 H 109/62 Pulse Oximetry 100 100 100 Oxygen Delivery Method Room Air Room Air Room Air BMI result Body Mass Index 22.8 Const General: cooperative, no acute distress, alert and awake Nutritional Appearance: well nourished Orientation/consciousness: patient oriented x3 Limitations: no limitations HENMT Head: Yes normal to inspection and Yes atraumatic Ears: hearing grossly normal bilaterally and external ears normal General nose exam: Normal external nose present, no nasal discharge noted and no epistaxis Face and sinus: Yes normal facial exam, No abrasion and No laceration Mouth: Normal oral and palatal mucosa present, no drooling and no muffled voice Eyes General: appearance normal, both eyes and all related structures Periorbital: periorbital findings normal Eyelids: Yes eyelids normal Conjunctivae: conjunctivae normal Pupils: Equal, round and reactive pupils present EOM: EOMs intact bilaterally Neck Neck: Yes normal visual inspection, Yes full ROM and Yes no lymphadenopathy Chest Chest palpation & inspection: normal inspection of the chest Resp Effort & Inspection: normal respiratory effort and able to speak in complete sentences Auscultation: clear to auscultation bilaterally Cardio Rate: regular rate Rhythm: regular rhythm GI Inspection: Yes normal to inspection Neuro General: patient oriented x3 and moves all extremities Cranial nerves: Yes Equal, round and reactive pupils present Cognition (Neuro): normal cognition Motor exam (neuro): 5/5 motor strength present throughout Sensory Exam: Normal double simultaneous stimulation for sensation Coordination: [id number] test normal Extrem General: Yes normal to inspection, Yes full ROM and Yes capillary refill normal Psych Appearance: grossly normal Mental Status: mental status grossly normal Affect: normal affect Attitude: cooperative Thought process: Normal thought process present Thought content: Normal thought content present Insight: Good insight present (Psych) NIH Stroke Scale Internal: Initial- Upon Arrival Time: 17:17 Level of Consciousness: Alert Level of Consciousness Questions: Answers both questions correctly Level of Consciousness Commands: Performs both tasks correctly Best Gaze: Normal Visual: No visual loss Facial Palsy: Normal Motor Arm (Right): No drift Motor Arm (Left): No drift Motor Leg (Right): No drift Motor Leg (Left): No drift Limb Ataxia: Absent Sensory: Normal Best Language: No aphasia Dysarthia: Normal Extinction and Inattention: No abnormality Score: 0 Medical Decision Making MDM Narrative Medical decision making narrative: Patient is a 41 year old female presenting to the emergency department today with a headache, and intermittent blurred vision. Patient's physical exam was unremarkable. Patient's blood work was unremarkable. Patient's head CT showed no acute process. I explained my physical exam findings as well as all test results to the patient and the patient's . I answered all questions asked by the patient and the patient's . Patient received IV fluids, IV Toradol, and IV Benadryl which she stated helped her symptoms significantly. I stressed the importance of the patient taking her medication as prescribed. I stressed the importance of the patient following up with her primary care provider and her neurologist. I stressed the importance of the patient returning to the emergency department immediately if her symptoms were to worsen or if she were to develop any dizziness, shortness of breath, difficulty breathing, chest pain, blurry vision, loss of vision, nausea, vomiting, abdominal pain, fever, chills, back pain, or any other complaints. Patient and the patient's verbalized agreement and understanding with this treatment plan and discharge. Medical Records Medical records reviewed: Yes I reviewed the patient's medical records. Lab Data Lab results reviewed: Yes I reviewed the patient's lab results. Result diagrams: 11/27/21 12:22 11/27/21 12:22 Labs: Lab Results 11/27/21 11/27/21 Range/Units 12:22 12:22 WBC 6.3 (4.8-10.8) X10*3/uL RBC 4.50 (4.20-5.50) X10*6/uL Hgb 13.6 (12.0-16.0) g/dl Hct 39.3 (37.0-47.0) % MCV 87.3 (80.0-98.0) fL MCH 30.2 (27.0-33.0) pg MCHC 34.6 (31.0-35.0) g/dl RDW 12.1 (11.0-16.0) % Plt Count 230 (160-400) X10*3/uL MPV 10.0 (9.4-12.3) fL Immature Gran % (Auto) 0.3 (0.0-0.4) % Neut % (Auto) 59.4 (45-73) % Lymph % (Auto) 31.0 (20-40) % [place] % (Auto) 8.4 (2-11) % Eos % (Auto) 0.6 (0-4) % Baso % (Auto) 0.3 (0-2) % Lymph # (Auto) 2.0 (1.2-4.9) X10*3/uL [place] # (Auto) 0.5 (0.1-1.2) X10*3/uL Eos # (Auto) 0.0 (0.0-0.4) X10*3/uL Baso # (Auto) 0.0 (0.0-0.2) X10*3/uL Abs Immat Gran (auto) 0.02 (0.00-0.03) X10*3/uL Absolute Neuts (auto) 3.7 (2.0-8.3) x10*3/uL Absolute Nucleated RBC 0.000 (0.0-0.012) X10*3/uL Nucleated RBC % (auto) 0.0 (0.0-0.2) /100WBC Sodium 139 (135-145) mmol/L Potassium 4.1 (3.3-5.1) mmol/L Chloride 103 (96-108) mmol/L Carbon Dioxide 27 (22-29) mmol/L Anion Gap 13 (12-20) BUN 6 L (9-16) mg/dL Creatinine 0.72 (0.5-1.4) mg/dL Estim Creat Clear Calc 89.7 Estimated GFR > 60 Random Glucose 98 (60-115) mg/dL Calcium 9.3 (8.4-10.2) mg/dL Total Bilirubin 0.4 (0.0-1.0) mg/dL AST 13 (5-31) U/L ALT 10 (0-31) U/L Alkaline Phosphatase 58 (39-117) U/L Total Protein 7.2 (6.5-8.0) g/dL Albumin 4.2 (3.5-5.0) g/dL Imaging Data CT scan - head: Attestation: I personally reviewed and interpreted this imaging study as follows: My impression: No acute process. Radiologist's impression: EXAMINATION: CT HEAD WITHOUT CONTRAST CLINICAL INFORMATION: Headache, pressure? COMPARISON: None TECHNIQUE: Contiguous axial imaging was performed from the skull base to vertex without intravenous administration of contrast. This CT examination was performed using dose optimization techniques as appropriate, variously including the following: *Automated exposure control *Adjustment of mA and/or kV according to patient size (this includes techniques or standardized protocols for targeted exams where dose is matched to indication/reason for exam; i.e. extremities or head) *Use of iterative reconstruction technique DLP: 590 mGy-cm ? The ventricles and cisterns are normal in size, shape and configuration. There are no extra-axial surface collections or evidence of hemorrhage. Midline structures are central. The ba/white differentiation is maintained. The orbits appear normal bilaterally. The paranasal sinuses are clear. No fractures are seen. ? CT/CT head/brain wo IV con IMPRESSION: No acute intracranial pathology Dictated By: Nir Cao MD Signed By: Electronically signed by Nir Cao MD 11/27/21 4404 Discharge Plan Discharge Clinical Impression: Migraine Patient Disposition: Home, Self-Care Instructions: Migraine Headache (ED) Additional Instructions: Follow up with your primary care provider and your neurologist. Return to the emergency department immediately if your symptoms worsen or if you develop any dizziness, shortness of breath, difficulty breathing, chest pain, blurry vision, loss of vision, nausea, vomiting, abdominal pain, fever, chills, back pain, or any other complaints. Prescriptions: No Action Paxlovid (EUA) 300 mg (150 mg x 2)-100 mg tablets,dose pack 3 ea PO PER PKG DIR 5 Days Qty: 30 0RF amitriptyline 50 mg tablet 1 tab PO BEDTIME omeprazole 20 mg capsule,delayed release(DR/EC) 20 mg PO DAILY Qty: 30 3RF ciclopirox 0.77 % cream 1 appl topical BID Qty: 90 4RF tizanidine 4 mg tablet 4 mg PO Q8H PRN (Reason: muscle spasticity) Qty: 60 3RF Mirena 20 mcg/24 hours (6 yrs) 52 mg intrauterine device 1 device vaginal ONCE dicyclomine 10 mg capsule PO Referrals: [facility] [place] [facility] [Provider Group] Dariel Bai MD [Primary Care Provider] - Stand Alone Forms: Work/School Release Interventions: ED Discharge Assessment Last Done: 11/27/21 19:44 Discharge Date/Time: 11/27/21 19:45 Print Language: Russian
[2021-11-27 17:19] VITALS: BP 139/92; PULSE 78; RESP 20; TEMP 36.7; O2SAT 100
[2021-11-27] MEDS: 0.9 % Sodium Chloride 1,000 ML 999 ML IV (17:41)
[2021-11-27] MEDS: Ketorolac Tromethamine 15 MG/ML VIAL IVPUSH (17:41)
[2021-11-27] MEDS: diphenhydrAMINE HCL 50 MG/ML VIAL IVPUSH (17:41)
[2021-11-27 19:41] VITALS: BP 109/62; PULSE 66; RESP 18; O2SAT 100
== END 2021-11-27 19:45 | disposition home or self-care (01) ==
PROVIDERS: Emergency Provider Internal Medicine; PCP Internal Medicine
DX: G43.909 Migraine, unspecified, not intractable, without status migrainosus (principal); R42 Dizziness and giddiness; Z79.899 Other long term (current) drug therapy
CPT/HCPCS: 36415; 70450; 80053; 85025; 96374; 96375; 99284; J1200; J1885

== ENCOUNTER 2021-12-27 10:54 | Outpatient (REF) | payer OTHER, MEDICAID, SELFPAY ==
--- NOTE | ~2021-12-27 | MM_ITS ---
EXAMINATION: MM DIAGNOSTIC DIGITAL BREAST TOMOSYNTHESIS, LEFT CLINICAL INFORMATION: Short interval six-month follow-up left breast calcifications upper outer quadrant initially noted at baseline exam. The lifetime risk of breast cancer based on the Tyrer-Cuzick Model is 13%. COMPARISON: Mammography: 06/21/2021, 06/14/2021 (baseline, BI-RADS 0). TECHNIQUE: Digital breast tomosynthesis is performed in both the craniocaudal and mediolateral oblique views along with computer-aided detection (CAD). Synthesized 2D images are generated from the tomosynthesis. Additional magnification left CC and magnification left ML views are obtained. FINDINGS: There are scattered areas of fibroglandular density (ACR BI-RADS breast composition Category b). Breast tissue composition is similar to baseline exam. There is no interval mass or architectural abnormality or developing density. The skin contours are smooth. Scattered punctate calcifications upper outer quadrant are less conspicuous, possibly decreased. There are no increasing calcifications or interval pleomorphic types or ductal distribution. Left breast calcifications will be reassessed again at time of annual bilateral mammography, due in 6 months. Results are provided to the patient at time of visit by the technologist. MM/MM tomosynthesis diagnostic LT IMPRESSION: -Left breast calcifications stable to decreased. -No significant changes from prior study. ASSESSMENT: BI-RADS 3: Probably Benign RECOMMENDATION: Diagnostic mammography at time of annual bilateral exam, due in 6 months. This patient's information was entered into a reminder system with a target due date for their next mammogram.
== END 2021-12-27 10:55 | disposition home or self-care (01) ==
LOC: HO.MAMMO 10:54
PROVIDERS: Visit Provider Obstetrics & Gynecology
DX: R92.1 Mammographic calcification found on diagnostic imaging of breast (principal)
CPT/HCPCS: 77061; 77065

== ENCOUNTER 2022-03-29 07:44 | Outpatient (REF) | payer OTHER, MEDICAID, SELFPAY ==
--- NOTE | ~2022-03-29 | CT_ITS ---
EXAMINATION: CT SINUS WITHOUT CONTRAST CLINICAL INFORMATION: Chronic sinusitis. COMPARISON: CT scan of the head 11/27/2021. TECHNIQUE: Multidetector helical imaging was performed in the axial plane with generation of coronal and sagittal reformatted images. This CT examination was performed using dose optimization techniques as appropriate, variously including the following: *Automated exposure control *Adjustment of mA and/or kV according to patient size (this includes techniques or standardized protocols for targeted exams where dose is matched to indication/reason for exam; i.e. extremities or head) *Use of iterative reconstruction technique DLP: 76 mGy-cm. FINDINGS: FRONTAL SINUSES AND DRAINAGE PATHWAYS: The frontal sinuses are moderately well developed bilaterally. There is moderate opacification in the left frontoethmoidal recess. The right frontal sinus is well-aerated. MAXILLARY SINUSES AND DRAINAGE PATHWAYS: The maxillary sinuses are well-developed bilaterally. There is trace mucoperiosteal thickening in the inferior left maxillary sinus. The ostiomeatal complexes are patent bilaterally. ETHMOID SINUSES: The ethmoid sinuses are well-developed bilaterally. There is mild opacification of an anterior left ethmoid air cell. SPHENOID SINUSES AND DRAINAGE PATHWAYS: The sphenoid sinuses are well-aerated bilaterally. They are clear with patent sphenoethmoidal recesses. NASAL CAVITY AND NASAL SEPTUM: Anteriorly, the nasal septum is deviated to the right and there is a right-sided bony nasal septal spur. There are no large nasal cavity masses or polyps. ADDITIONAL RELEVANT FINDINGS: The lamina papyracea are intact. The carotid canals are normally covered by bone. The ethmoid roofs are symmetric. There is a large periapical lucency around the roots of the root filled left maxillary 1st molar tooth. A 4th root (normal variant) does not have a root canal filling. The TMJs and orbits are normal. The mastoid air cells are clear. There are no acute intracranial findings. CT/CT sinus wo IV con IMPRESSION: 1. There is mild mucoperiosteal thickening at the left frontoethmoidal recess an anterior left ethmoid air cells and there is trace mucoperiosteal thickening in the inferior left maxillary sinus. The other paranasal sinuses and the mastoid air cells are well-aerated. 2. The ostiomeatal complexes are patent bilaterally. 3. The nasal septum is deviated to the right and there is a right-sided bony nasal septal spur.
== END 2022-03-29 07:45 | disposition home or self-care (01) ==
LOC: HO.CT 07:44
PROVIDERS: PCP Internal Medicine; Visit Provider Internal Medicine
DX: J32.9 Chronic sinusitis, unspecified (principal)
CPT/HCPCS: 70486

== ENCOUNTER 2022-04-27 08:35 | Outpatient (REF) | payer OTHER, MEDICAID, SELFPAY ==
[2022-04-27 08:50] LABS: MANUAL DIFF FLAG NO
[2022-04-27 09:47] LABS: Basophils Percent Auto 0.6 % (0-2); Eosinophils Absolute Auto 0.1 X10*3/uL (0.0-0.4); Eosinophils Percent Auto 1.5 % (0-4); Hematocrit 40.8 % (37.0-47.0); Hemoglobin 13.8 g/dl (12.0-16.0); Lymphocytes Absolute Auto 1.6 X10*3/uL (1.2-4.9); Lymphocytes Percent Auto 47.4 % (20-40); Mean Corpuscular HGB Conc 33.8 g/dl (31.0-35.0); Mean Corpuscular Hemoglobin 29.5 pg (27.0-33.0); Mean Corpuscular Volume 87.2 fL (80.0-98.0); Mean Platelet Volume 10.5 fL (9.4-12.3); Monocytes Absolute Auto 0.3 X10*3/uL (0.1-1.2); Monocytes Percent Auto 10.3 % (2-11); Neutrophils Absolute Auto 1.3 x10*3/uL (2.0-8.3); Neutrophils Percent Auto 40.2 % (45-73); Platelet Count 261 X10*3/uL (160-400); Red Blood Count 4.68 X10*6/uL (4.20-5.50); Red Cell Distribution Width 12.5 % (11.0-16.0); White Blood Count 3.3 X10*3/uL (4.8-10.8)
[2022-04-27 11:11] LABS: Alanine Aminotransferase 14 U/L (0-31); Albumin Level 4.5 g/dL (3.5-5.0); Alkaline Phosphatase 59 U/L (39-117); Anion Gap 11 (12-20); Aspartate Amino Transferase 14 U/L (5-31); Blood Urea Nitrogen 15 mg/dL (9-16); Calcium 9.4 mg/dL (8.4-10.2); Carbon Dioxide 26 mmol/L (22-29); Chloride 107 mmol/L (96-108); Cholesterol 154 mg/dL; Estimated Glomerular Filt Rate > 60; Glucose Fasting 89 mg/dL (60-99); HDL Cholesterol 38 mg/dL; LDL Cholesterol Calculated 103 mg/dl; Potassium 4.4 mmol/L (3.3-5.1); Sodium 140 mmol/L (135-145); Thyroid Stimulating Hormone 1.72 uIU/mL (0.32-4.0); Total Protein 7.2 g/dL (6.5-8.0); Triglycerides 68 mg/dL
== END 2022-04-27 08:36 | disposition home or self-care (01) ==
LOC: HO.LAB 08:35
PROVIDERS: PCP Internal Medicine; Visit Provider Internal Medicine
DX: E03.9 Hypothyroidism, unspecified (principal); E78.5 Hyperlipidemia, unspecified; N28.9 Disorder of kidney and ureter, unspecified; D64.9 Anemia, unspecified
CPT/HCPCS: 36415; 80053; 80061; 84443; 85025

== ENCOUNTER → 2022-05-23 08:10 | Outpatient (BNVA) | payer OTHER, MEDICAID, SELFPAY | PROVIDERS: PCP Internal Medicine; Visit Provider Obstetrics & Gynecology | DX: Z13.89 Encounter for screening for other disorder (principal) ==

== ENCOUNTER 2022-06-27 13:42 | Outpatient (REF) | payer OTHER, MEDICAID, SELFPAY ==
--- NOTE | ~2022-06-27 | MM_ITS ---
EXAMINATION: MM DIAGNOSTIC DIGITAL BREAST TOMOSYNTHESIS, BILATERAL US DIAGNOSTIC ULTRASOUND BREAST, LEFT CLINICAL INFORMATION: Patient is due for yearly and also follow-up probable benign calcifications upper outer quadrant left breast. In addition, patient notes recent palpable fullness mid upper outer left breast for several days. The lifetime risk of breast cancer based on the Tyrer-Cuzick Model is 13%. COMPARISON: Mammography: 12/27/2021, 06/21/2021, 06/14/2021 (baseline, BI-RADS 0). TECHNIQUE: Digital breast tomosynthesis is performed in both the craniocaudal and mediolateral oblique views along with computer-aided detection (CAD). Synthesized 2D images are generated from the tomosynthesis. Additional magnification left CC and magnification left ML views are obtained. Ultrasound left breast is targeted to the area of clinical concern mid upper outer left breast. Grayscale imaging and color Doppler are performed without and with harmonics. FINDINGS: There are scattered areas of fibroglandular density (ACR BI-RADS breast composition Category b). Parenchymal pattern is similar to prior studies and there is no interval mass or architectural abnormality or abnormal calcifications. Breast tissue composition borders on heterogeneously dense in the upper outer quadrants. The axilla and skin contours are unremarkable. Calcifications for follow-up mid upper outer left breast are less conspicuous. There are no increasing calcifications or pleomorphic types or ductal distribution or other suspicious change. Calcifications will be reassessed again at next bilateral annual mammography, due in 12 months. Ultrasound left breast demonstrates two benign simple cysts in area of palpable concern mid 2:00 position, larger 2.0 x 1.0 cm and smaller approximately 1.3 x 0.9 cm. Both cysts are anechoic and show increased through-transmission of sound and no associated color flow. There is no solid mass or architectural abnormality. Results are discussed with the patient at time of visit. MM/MM tomosynthesis diagnostic BI IMPRESSION: Left: -Probable benign calcifications for follow-up, stable to decreased. -Palpable concern upper outer quadrant corresponds to two benign simple cysts, 2 cm and 1.3 cm. Right: -No mammographic evidence of malignancy. ASSESSMENT: BI-RADS 3: Probably Benign RECOMMENDATION: Diagnostic mammography with magnification views left breast at time of next bilateral annual exam, due in 12 months. This patient's information was entered into a reminder system with a target due date for their next mammogram.
== END 2022-06-27 13:43 | disposition home or self-care (01) ==
LOC: HO.MAMMO 13:42
PROVIDERS: Visit Provider Obstetrics & Gynecology
DX: R92.1 Mammographic calcification found on diagnostic imaging of breast (principal); N63.21 Unspecified lump in the left breast, upper outer quadrant
CPT/HCPCS: 76642; 77062; 77066

== ENCOUNTER 2022-09-22 10:28 | Outpatient (REF) | payer OTHER, MEDICAID, SELFPAY ==
[2022-09-22 12:14] LABS: Alanine Aminotransferase 9 U/L (0-31); Albumin Level 4.4 g/dL (3.5-5.0); Alkaline Phosphatase 58 U/L (39-117); Aspartate Amino Transferase 14 U/L (5-31); Bilirubin Direct 0.2 mg/dL (0.0-0.5); Total Protein 7.5 g/dL (6.5-8.0)
== END 2022-09-22 10:29 | disposition home or self-care (01) ==
LOC: HO.HMGCLDS 10:28
PROVIDERS: PCP Internal Medicine; Visit Provider Podiatrist
DX: B35.1 Tinea unguium (principal)
CPT/HCPCS: 36415; 80076

== ENCOUNTER 2023-01-11 13:31 | Outpatient (AMB) | payer OTHER, MEDICAID, SELFPAY ==
[2023-01-11 13:33] VITALS: BP 110/70; PULSE 67; O2SAT 100; BMI 22.1
--- NOTE | 2023-01-11 13:33 | MHC.PC.OV ---
Vital Signs 01/11/23 13:33 Height 5 ft 4 in Weight 129 lb BMI 22.1 BP 110/70 Blood Pressure Location Lt brachial Position Sitting Pulse 67 Pulse Source Pulse Oximeter Pulse Oximetry (%) 100 Oxygen Delivery Method Room Air Intake Visit Reasons: Sore Throat/Dry Cough Allergies No Known Allergies [No Known Allergies*] Allergy (Verified 01/11/23 13:33) Medication List - Last Reconciled 01/11/23 by Dariel Bai MD [id number] 50-325-40 mg caps PO DAILY PRN levonorgestrel 1 device vaginal ONCE sumatriptan succinate 50 mg PO DAILY PRN tizanidine 4 mg PO Q8H PRN topiramate 25 mg PO DAILY Tobacco use date assessed: 04/21/22 Dental Screening Dental Screen Date: 01/11/23 Did you have a dental visit in the last 12 months?: Yes Did you have a dental problem in the last 6 months where you did not have access to dental care?: No Was dental information given to patient?: Patient has dentist HPI Sore Throat/Dry Cough HPI Details sore throat and cough for a week; neg covid PFSH Medical History GERD (gastroesophageal reflux disease) COVID-19 vaccine series completed Hx of migraine headaches Hx of ectopic Surgical History History of esophagogastroduodenoscopy (EGD) H/O colonoscopy History of salpingectomy Hx of cholecystectomy Family History Mother Hyperlipemia Social History Household Members: Spouse Household Members Other:: son Housing: House Are you a primary child care center assistant director to a significant other at home: No Do you presently have visiting nurse or other home services: No Alcohol intake: never Patient Tobacco Use Status: Never used Tobacco e-Cigarette/Vaping Use: Never Used Second Hand Smoke Exposure: No service: No Current occupational status: employed 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 1. Little interest or pleasure in doing things: not at all 2. Feeling down, depressed, or hopeless: not at all 3. Trouble falling or staying asleep, or sleeping too much: several days 4. Feeling tired or having little energy: several days 5. Poor appetite or overeating: not at all 6. Feeling bad about yourself - or that you are a failure or have let yourself or your family down: not at all 7. Trouble concentrating on things, such as reading the newspaper or watching television: not at all 8. Moving or speaking so slowly that other people could have noticed. Or the opposite - being so fidgety or restless that you have been moving around a lot more than usual: not at all 9. Thoughts that you would be better off or of hurting yourself in some way: not at all Total score: 2 Depression Screening Interpretation: Negative Depression Screening Done: Yes 68375 - PHQ-9 Billing: Yes Source: Developed by Drs. Jensen Mohamud, Jennifer Becerra, Simeon Ahn and colleagues, with an educational silvano from [employer]. Thrive Questionnaire Date Thrive assessed: 04/21/22 AUDIT C Alcohol Use Questionnaire (AUDIT-C) Score Reviewed/Action Taken: Yes KEITH-7 AMB Questionnaire KEITH-7 Date KEITH - 7 assessed: 04/21/22 Source: Developed by Drs. Jensen Mohamud, Jennifer Becerra, Simeon Ahn and colleagues, with an educational silvano from [employer]. Review of Systems Const Denies chills, Denies headache(s) and Denies weight loss ENT Denies headache(s) Card Denies chest pain, Denies syncope, Denies irregular heart rhythm and Denies dyspnea Resp Denies chest congestion and Denies dyspnea GI Denies abdominal pain, Denies change in stool character, Denies nausea and Denies vomiting Musc Denies deformity and Denies joint swelling Neuro Denies syncope and Denies headache(s) Physical exam (Primary Care) Vital Signs: Last Vital Signs Pulse 67 01/11/23 13:33 BP 110/70 01/11/23 13:33 Pulse Ox 100 01/11/23 13:33 Oxygen Delivery Method Room Air 01/11/23 13:33 BMI result Body Mass Index 22.1 Tobacco/Smoking Status: Tobacco use Status Tobacco use date assessed 04/21/22 01/11/23 13:37 Patient Tobacco Use Status Never used Tobacco 01/11/23 13:37 e-Cigarette/Vaping Use Never Used 01/11/23 13:37 PHQ-9: PHQ-9 Score PHQ-9: Total score 2 01/11/23 13:37 Depression Screening Interpretation: Negative Thrive Assessment: Date of Thrive Assessment Date Thrive assessed 04/21/22 01/11/23 13:37 Const General: cooperative, comfortable, no acute distress and alert Neck Neck: Yes no lymphadenopathy Thyroid: Thyroid normal Resp Effort & Inspection: normal respiratory effort Auscultation: clear to auscultation bilaterally Percussion: percussion normal Cardio Jugular venous distension: no JVD Palpation: normal PMI Rate: regular rate Rhythm: regular rhythm Heart sounds: S1 normal heart sound present and S2 normal heart sound present GI Inspection: Yes normal to inspection Palpation (GI): No hepatosplenomegaly present Skin General skin exam: no rashes or lesions noted Extrem General: Yes no clubbing, cyanosis or edema Assessment and Plan Assessment & Plan (1) Sore throat: Code(s): J02.9 - Acute pharyngitis, unspecified Plan: rx sent Medications: New azithromycin take 500 mg today (day 1), then 250 mg for 4 days (days 2-5) PO 6 tabs 0RF Coding Level of Care Code Est Pt Level 3 (69848) Diagnoses Sore throat J02.9
== END 2023-01-11 13:43 | disposition home or self-care (01) ==
PROVIDERS: PCP Internal Medicine; Visit Provider Internal Medicine
DX: J02.9 Acute pharyngitis, unspecified (principal)
CPT/HCPCS: 99213

== ENCOUNTER 2023-03-13 12:53 | Outpatient (REF) | payer OTHER, MEDICAID, SELFPAY ==
[2023-03-14 10:52] LABS: CT PCR NOT DETECTED (Not Detect.); NG PCR NOT DETECTED (Not Detect.)
[2023-03-14 10:54] LABS: BV Int Neg Control Negative (Negative); BV Int Pos Control Positive (Positive)
== END 2023-03-13 12:54 | disposition home or self-care (01) ==
LOC: HO.LAB 12:53
PROVIDERS: PCP Internal Medicine; Visit Provider Advanced Practice Midwife
DX: Z30.431 Encounter for routine checking of intrauterine contraceptive device (principal); N89.8 Other specified noninflammatory disorders of vagina; Z20.2 Contact with and (suspected) exposure to infections with a predominantly sexual mode of transmission
CPT/HCPCS: 0353U; 87480; 87510; 87660

== ENCOUNTER 2023-03-13 12:53 | Outpatient (AMB) | payer OTHER, MEDICAID, SELFPAY ==
[2023-03-13 13:03] VITALS: BP 122/70; BMI 23.2
--- NOTE | 2023-03-13 13:03 | MHC.OFFVIS ---
Intake Vital Signs 03/13/23 13:03 Height 5 ft 4 in Weight 135 lb BMI 23.2 BP 122/70 Intake Visit Reasons: ?BV Field Health Officer Required: No Information Interpreted: clinical only Commercial Credit Reviewer: Commercial Credit Reviewer Present Allergies No Known Allergies [No Known Allergies*] Allergy (Verified 03/13/23 13:04) Medication List - Last Reconciled 03/13/23 by Anna Kaminski CNM levonorgestrel 1 device vaginal ONCE sumatriptan succinate 50 mg PO DAILY PRN Is last menstrual period known: Yes Last menstrual period: 01/30/23 HPI ?BV HPI Details patient is here to get checked because she is having a vaginal discharge so this kind yellowish whitish with the bad fishy odor. Also for the last couple of weeks it has been hurting her little bit not terribly but a little bit when she has sex she has a Mirena IUD in for last couple of years and it is not giving her any trouble usually she has some spotting once a month but she did not have any spotting since so round January 30. She does not feel the strings all the time but she would like to get that checked out she isn't particularly worried about STIs but wants to get checked vaginally though she declines blood work. [facility] Medical History GERD (gastroesophageal reflux disease) COVID-19 vaccine series completed Hx of migraine headaches Hx of ectopic Surgical History History of esophagogastroduodenoscopy (EGD) H/O colonoscopy History of salpingectomy Hx of cholecystectomy Family History Mother Hyperlipemia Social History Household Members: Spouse Household Members Other:: son Housing: House Are you a primary inpatient care manager rn to a significant other at home: No Do you presently have visiting nurse or other home services: No Alcohol intake: never Patient Tobacco Use Status: Never used Tobacco e-Cigarette/Vaping Use: Never Used Second Hand Smoke Exposure: No service: No Current occupational status: employed 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 Multiparous cervix mobile nontender with Mirena string visible though patient says she could feel some little bit of discomfort when I touched the cervix at 04:00 o'clock but not enough to wince or change her expression at all. uterus small mobile anteverted nontender adnexa nontender not enlarged fair tone with Kegel External Female Exam: normal external appearance Speculum Exam - Vagina: normal appearance of the vagina and normal vaginal discharge ( Somewhat thick whitish faint yellow tinged) Speculum Exam - Cervix: normal appearance of the cervix ( multiparous with Mirena strings visible thick creamy discharge from cervix) Bimanual exam- vagina & uterus: normal bimanual exam, uterine size normal, consistency normal, uterine mobility normal, uterine shape normal and non-tender Bimanual Exam- Adnexa, other: normal adnexae, no masses and No adnexal tenderness Assessment & Plan Assessment & Plan (1) IUD check up: Code(s): Z30.431 - Encounter for routine checking of intrauterine contraceptive device (2) Problematic vaginal discharge: Code(s): N89.8 - Other specified noninflammatory disorders of vagina Plan offered blood work for STIs she is not worried and declines for now. Testing done for gonorrhea chlamydia trichomoniasis as well as Gardnerella and Shelia each of these infections was explained results should be available by tomorrow the common finding of Gardnerella which in her symptoms would the yield a diagnosis of BV could be treated with either metronidazole pills or gel since she has got some discomfort she may benefit from the pills we will await those results. I also I am offering an ultrasound to verify the proper location of the IUD though I do not have any reason to suspect there is any problem. Discussed that sometimes the position in the uterus can alter slightly with gravity and that could account for some more discomfort. If it is within the intrauterine cavity but has lower down it is still working for her but could be replaced as it is call discomfort and has lowered from the fundus. She and I will have a visit after the ultrasound to review the findings. Coding Level of Care Code Est Pt Level 3 (37272) Diagnoses IUD check up Z30.431 Problematic vaginal discharge N89.8
== END 2023-03-13 13:39 | disposition home or self-care (01) ==
LOC: HO.HWSM 12:53
PROVIDERS: PCP Internal Medicine; Visit Provider Advanced Practice Midwife
DX: Z30.431 Encounter for routine checking of intrauterine contraceptive device (principal); N89.8 Other specified noninflammatory disorders of vagina
CPT/HCPCS: 99213

== ENCOUNTER 2023-04-20 14:50 | Outpatient (REF) | payer OTHER, MEDICAID, SELFPAY ==
--- NOTE | ~2023-04-20 | US_ITS ---
EXAMINATION: US PELVIS CLINICAL INFORMATION: Check IUD COMPARISON: 03/17/2020 TECHNIQUE: Ultrasound of the pelvis is performed using both transabdominal and transvaginal transducers along with Doppler. Transvaginal imaging is performed due to inadequate visualization transabdominally. FINDINGS: Uterus: The uterus is anteverted and measures 8.3 x 3.6 x 4.8 cm. Redemonstration of multiple uterine fibroids. A anterior uterine body subserosal fibroid measures 1.4 cm. A intramural anterior uterine body fibroid measures 2.1 cm and a fundal intramural fibroid measures 2.1 cm. Endometrium is not well seen, intrauterine device is centered within the endometrial cavity. The uterus is smooth in contour and has normal myometrial echogenicity. No visible fibroid. Adnexa: Both ovaries are visualized. There is normal color flow to the adnexa. There is no ovarian torsion. There is no pelvic ascites or fluid collection. Right ovary measures 3.6 x 1.9 x 1.8 cm. Left ovary measures 3.1 x 1.6 x 1.6 cm. US/US pelvic and transvaginal IMPRESSION: * Intrauterine device is centered within the endometrial cavity. * Redemonstration of multiple uterine fibroids.
== END 2023-04-20 14:51 | disposition home or self-care (01) ==
LOC: HO.US 14:50
PROVIDERS: PCP Internal Medicine; Visit Provider Advanced Practice Midwife
DX: Z30.431 Encounter for routine checking of intrauterine contraceptive device (principal)
CPT/HCPCS: 76830; 76856

== ENCOUNTER 2023-04-24 08:30 | Outpatient (AMB) | payer OTHER, MEDICAID, SELFPAY ==
[2023-04-24 08:37] VITALS: BP 104/62; PULSE 60; O2SAT 99; BMI 22.1
--- NOTE | 2023-04-24 08:37 | A.OFFPC_ITS ---
Vital Signs 04/24/23 08:37 Height 5 ft 4 in Weight 129 lb BMI 22.1 BP 104/62 Blood Pressure Location Lt brachial Position Sitting Pulse 60 Pulse Source Pulse Oximeter Pulse Oximetry (%) 99 Oxygen Delivery Method Room Air Intake Visit Reasons: Annual Exam Analysis Internship Required: No Cotton Gin Yard Supervisor: Not Required per policy Accompanied by: Self / Same As Patient Allergies No Known Allergies [No Known Allergies*] Allergy (Verified 04/24/23 08:37) Medication List - Last Reconciled 04/24/23 by Dariel Bai MD levonorgestrel 1 device vaginal ONCE metronidazole 500 mg PO BID 7 days sumatriptan succinate 50 mg PO DAILY PRN Tobacco use date assessed: 04/24/23 Dental Screening Dental Screen Date: 04/24/23 Did you have a dental visit in the last 12 months?: Yes Did you have a dental problem in the last 6 months where you did not have access to dental care?: No Was dental information given to patient?: Patient has dentist HPI Annual Exam HPI Details occ migraines; doing well PFSH Medical History GERD (gastroesophageal reflux disease) COVID-19 vaccine series completed Hx of migraine headaches Hx of ectopic Surgical History History of esophagogastroduodenoscopy (EGD) H/O colonoscopy History of salpingectomy Hx of cholecystectomy Family History Mother Hyperlipemia Social History Household Members: Spouse Household Members Other:: son Housing: House Are you a primary wound care physician to a significant other at home: No Do you presently have visiting nurse or other home services: No Alcohol intake: never Patient Tobacco Use Status: Never used Tobacco e-Cigarette/Vaping Use: Never Used Second Hand Smoke Exposure: No service: No Current occupational status: employed 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 1. Little interest or pleasure in doing things: not at all 2. Feeling down, depressed, or hopeless: not at all 3. Trouble falling or staying asleep, or sleeping too much: more than half the days 4. Feeling tired or having little energy: more than half the days 5. Poor appetite or overeating: not at all 6. Feeling bad about yourself - or that you are a failure or have let yourself or your family down: not at all 7. Trouble concentrating on things, such as reading the newspaper or watching television: not at all 8. Moving or speaking so slowly that other people could have noticed. Or the opposite - being so fidgety or restless that you have been moving around a lot more than usual: not at all 9. Thoughts that you would be better off or of hurting yourself in some way: not at all Total score: 4 Depression Screening Interpretation: Negative Depression Screening Done: Yes 31643 - PHQ-9 Billing: Yes Source: Developed by Drs. Jensen Mohamud, Jennifer Becerra, Simeon Ahn and colleagues, with an educational silvano from [employer]. Thrive Questionnaire Date Thrive assessed: 04/24/23 I am a: Patient What is your living situation today?: I have a steady place to live Within the past 12 months, did the food you bought not last and you didn't have the money to get more?: Never true Within the past 12 months, did you worry whether your food would run out before you got money to buy more?: Never true Do you have trouble paying for medicines?: No Do you have trouble getting transportation to medical appointments?: No Do you have trouble paying your heating and electricity bill?: No Do you have trouble taking care of your child, family member or friend?: No Do you have trouble with day-to-day activities such as bathing, preparing meals, shopping, managing finances, etc.?: No Are you currently unemployed and looking for a job?: No Are you interested in more education?: No Please select the resources that you would like help with: None THRIVE Score: 0 AUDIT C Alcohol Use Questionnaire (AUDIT-C) 1. How often do you have a drink containing alcohol?: Never Total Score: 0 Score Reviewed/Action Taken: Yes KEITH-7 AMB Questionnaire KEITH-7 Date KEITH - 7 assessed: 04/24/23 Feeling nervous, anxious, or on edge: 0 = Not at all Not being able to stop or control worryin = Not at all Worrying too much about different things: 0 = Not at all Trouble relaxin = Not at all Being so restless that it is hard to sit still: 0 = Not at all Becoming easily annoyed or irritable: 0 = Not at all Feeling afraid as if something awful might happen: 0 = Not at all Total KEITH-7 score (0-4 normal; 5-9 mild; 10-14 moderate; 15-21 severe): 0 Source: Developed by Drs. Jensen Mohamud, Jennifer Becerra, Simeon Ahn and colleagues, with an educational silvano from [employer]. KEITH-7 Assessment Billing KEITH-7 Assessment Tool: KEITH-7 Assessment 42637 Review of Systems Const Denies chills, Denies fatigue, Denies headache(s) and Denies weight loss Eyes Denies change in vision, Denies diplopia and Denies eye pain ENT Denies vertigo, Denies dizziness, Denies headache(s) and Denies nasal discharge Card Denies chest pain, Denies rapid heart rate and Denies dyspnea on exertion Resp Denies chest congestion, Denies cough, Denies pain with cough and Denies dyspnea on exertion GI Denies abdominal pain, Denies hematochezia and Denies change in bowel habits Musc Denies myalgias, Denies arthralgias and Denies joint swelling Skin/Breast Denies lesions and Denies unusual bruising Neuro Denies vertigo, Denies dizziness, Denies headache(s) and Denies focal weakness Endo Denies fatigue Physical exam (Primary Care) Vital Signs: Last Vital Signs Pulse 60 04/24/23 08:37 BP 104/62 04/24/23 08:37 Pulse Ox 99 04/24/23 08:37 Oxygen Delivery Method Room Air 04/24/23 08:37 BMI result Body Mass Index 22.1 Tobacco/Smoking Status: Tobacco use Status Tobacco use date assessed 04/24/23 04/24/23 08:39 Patient Tobacco Use Status Never used Tobacco 04/24/23 08:39 e-Cigarette/Vaping Use Never Used 04/24/23 08:39 PHQ-9: PHQ-9 Score PHQ-9: Total score 4 04/24/23 08:44 Depression Screening Interpretation: Negative Thrive Assessment: Date of Thrive Assessment Date Thrive assessed 04/24/23 04/24/23 08:39 Const General: cooperative, healthy appearing and no acute distress Orientation/consciousness: oriented to person, oriented to place and oriented to time HENMT Head: Yes normal to inspection, Yes normocephalic and Yes atraumatic Mouth: Normal oral and palatal mucosa present and tongue normal Throat: Yes posterior oropharynx normal and Yes uvula midline Eyes General: appearance normal, both eyes and all related structures Neck Neck: Yes normal visual inspection, Yes full ROM and Yes no lymphadenopathy Thyroid: Thyroid normal Carotids: normal carotid upstroke Chest Chest palpation & inspection: normal inspection of the chest Resp Effort & Inspection: normal respiratory effort and able to speak in complete sentences Auscultation: clear to auscultation bilaterally Cardio Jugular venous distension: no JVD Palpation: normal PMI Rate: regular rate Rhythm: regular rhythm Heart sounds: S1 normal heart sound present and S2 normal heart sound present GI Inspection: Yes normal to inspection Palpation (GI): Soft to palpation and No hepatosplenomegaly present Auscultation: normal bowel sounds General: Yes no CVA tenderness Back/Spine/Pelvis Back: no CVA tenderness Skin General skin exam: no rashes or lesions noted Neuro General: oriented to person, oriented to place and oriented to time Extrem General: Yes normal to inspection and Yes full ROM Assessment and Plan Assessment & Plan (1) Physical exam: Code(s): Z00.00 - Encounter for general adult medical examination without abnormal findings Plan: stable; do labs (2) Hx of migraines: Code(s): Z86.69 - Personal history of other diseases of the nervous system and sense organs Plan: same rx Orders: Orders Lipid Panel Today E78.5 - Hyperlipidemia, unspecified Complete Blood Count Auto Diff Today D64.9 - Anemia, unspecified Comprehensive [place]. Panel Fast Today N28.9 - Disorder of kidney and ureter, unspecified Thyroid Stimulating Hormone Today E03.9 - Hypothyroidism, unspecified Coding Level of Care Code Est Pt Prev Care 40-64y(06584) Diagnoses Physical exam Z00.00 Hx of migraines Z86.69 Additional Codes KEITH-7 Assessment Billing - KEITH-7 Assessment Tool: KEITH-7 Assessment [id number] ([id number])
== END 2023-04-24 09:14 | disposition home or self-care (01) ==
PROVIDERS: Visit Provider Internal Medicine
DX: Z00.00 Encounter for general adult medical examination without abnormal findings (principal); Z86.69 Personal history of other diseases of the nervous system and sense organs
CPT/HCPCS: 99396

== ENCOUNTER 2023-04-24 09:18 | Outpatient (REF) | payer OTHER, MEDICAID, SELFPAY ==
[2023-04-24 09:32] LABS: MANUAL DIFF FLAG NO
[2023-04-24 10:33] LABS: Basophils Percent Auto 0.5 % (0-2); Eosinophils Absolute Auto 0.1 X10*3/uL (0.0-0.4); Eosinophils Percent Auto 1.4 % (0-4); Hematocrit 41.3 % (37.0-47.0); Hemoglobin 13.8 g/dl (12.0-16.0); Imm Gran Abs Auto 0.01 X10*3/uL (0.00-0.03); Imm Gran Pct Auto 0.2 % (0.0-0.4); Lymphocytes Absolute Auto 1.6 X10*3/uL (1.2-4.9); Lymphocytes Percent Auto 37.5 % (20-40); Mean Corpuscular HGB Conc 33.4 g/dl (31.0-35.0); Mean Corpuscular Hemoglobin 29.7 pg (27.0-33.0); Mean Corpuscular Volume 88.8 fL (80.0-98.0); Mean Platelet Volume 10.5 fL (9.4-12.3); Monocytes Absolute Auto 0.4 X10*3/uL (0.1-1.2); Monocytes Percent Auto 9.7 % (2-11); Neutrophils Absolute Auto 2.2 x10*3/uL (2.0-8.3); Neutrophils Percent Auto 50.7 % (45-73); Platelet Count 293 X10*3/uL (160-400); Red Blood Count 4.65 X10*6/uL (4.20-5.50); Red Cell Distribution Width 12.3 % (11.0-16.0); White Blood Count 4.4 X10*3/uL (4.8-10.8)
[2023-04-24 11:26] LABS: Alanine Aminotransferase 17 U/L (0-31); Albumin Level 4.6 g/dL (3.5-5.0); Alkaline Phosphatase 59 U/L (39-117); Anion Gap 10 (12-20); Aspartate Amino Transferase 17 U/L (5-31); Bilirubin Total 0.6 mg/dL (0.0-1.0); Blood Urea Nitrogen 16 mg/dL (9-16); Calcium 9.6 mg/dL (8.4-10.2); Carbon Dioxide 28 mmol/L (22-29); Chloride 106 mmol/L (96-108); Cholesterol 167 mg/dL (<200); Estimated Glomerular Filt Rate > 60; Glucose Fasting 90 mg/dL (60-99); HDL Cholesterol 40 mg/dL (>40); LDL Cholesterol Calculated 106 mg/dL (<100); Potassium 4.2 mmol/L (3.3-5.1); Sodium 140 mmol/L (135-145); Total Protein 7.9 g/dL (6.5-8.0); Triglycerides 109 mg/dL (<150)
[2023-04-24 11:48] LABS: Thyroid Stimulating Hormone 1.81 uIU/mL (0.32-4.0)
== END 2023-04-24 09:19 | disposition home or self-care (01) ==
LOC: HO.LAB 09:18
PROVIDERS: PCP Internal Medicine; Visit Provider Internal Medicine
DX: E03.9 Hypothyroidism, unspecified (principal); D64.9 Anemia, unspecified; N28.9 Disorder of kidney and ureter, unspecified; E78.5 Hyperlipidemia, unspecified
CPT/HCPCS: 36415; 80053; 80061; 84443; 85025

== ENCOUNTER 2023-04-30 09:30 | Outpatient (AMB) | payer OTHER, MEDICAID, SELFPAY ==
--- NOTE | 2023-04-30 09:30 | A.OFFVIS_ITS ---
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 The ultrasound was done to verify the position of the IUD patient has a history of fibroids. The fibroids were again seen there were 3 of them measuring 1-1/2 cm and 2 cm and 2 cm. The IUD is centrally located in the patient's uterus. The discomfort she feels is really just with her. She has not particularly worried she just wanted to be sure there was not anything else going on inside. She just recently had her. The patient did not get a text so the tele visit was done by voice only. PFSH Medical History GERD (gastroesophageal reflux disease) COVID-19 vaccine series completed Hx of migraine headaches Hx of ectopic Surgical History History of esophagogastroduodenoscopy (EGD) H/O colonoscopy History of salpingectomy Hx of cholecystectomy Family History Mother Hyperlipemia Social History Household Members: Spouse Household Members Other:: son Housing: House Are you a primary healthcare educator to a significant other at home: No Do you presently have visiting nurse or other home services: No Alcohol intake: never Patient Tobacco Use Status: Never used Tobacco e-Cigarette/Vaping Use: Never Used Second Hand Smoke Exposure: No service: No Current occupational status: employed 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 Sexual orientation: Straight/Heterosexual Gender identity: Female Cognitive needs: No Hearing needs: No Vision needs: No Female Reproductive History Menstrual Age of Menarche: 11 Date of last menstrual period: 04/24/23 control method: progestin IUCD Results Reviewed Results Reviewed: [address] [address] Ultrasound Report Signed Patient: Judy Martinez MR#: [id number] : 1980 Acct:[id number] Age/Sex: 43 / F ADM Date: 04/20/23 Loc: HO.US Attending Dr: Anna Kaminski CNM Ordering Physician: Anna Kaminski CNM Date of Service: 04/20/23 Procedure(s): US pelvic and transvaginal Accession Number(s): [id number] cc: Dariel Bai MD; Anna Kaminski CNM~ EXAMINATION: US PELVIS CLINICAL INFORMATION: Check IUD COMPARISON: 03/17/2020 TECHNIQUE: Ultrasound of the pelvis is performed using both transabdominal and transvaginal transducers along with Doppler. Transvaginal imaging is performed due to inadequate visualization transabdominally. FINDINGS: Uterus: The uterus is anteverted and measures 8.3 x 3.6 x 4.8 cm. Redemonstration of multiple uterine fibroids. A anterior uterine body subserosal fibroid measures 1.4 cm. A intramural anterior uterine body fibroid measures 2.1 cm and a fundal intramural fibroid measures 2.1 cm. Endometrium is not well seen, intrauterine device is centered within the endometrial cavity. The uterus is smooth in contour and has normal myometrial echogenicity. No visible fibroid. Adnexa: Both ovaries are visualized. There is normal color flow to the adnexa. There is no ovarian torsion. There is no pelvic ascites or fluid collection. Right ovary measures 3.6 x 1.9 x 1.8 cm. Left ovary measures 3.1 x 1.6 x 1.6 cm. US/US pelvic and transvaginal IMPRESSION: * Intrauterine device is centered within the endometrial cavity. * Redemonstration of multiple uterine fibroids. 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 The ultrasound was done to verify the position of the IUD patient has a history of fibroids. The fibroids were again seen there were 3 of them measuring 1-1/2 cm and 2 cm and 2 cm. The IUD is centrally located in the patient's uterus. The discomfort she feels is really just with her. She has not particularly worried she just wanted to be sure there was not anything else going on inside. She just recently had her. The patient did not get a text so the tele visit was done by voice only. She says she has a checkup visit in May as well for a full checkup and we will see her then she had no other concerns. Discussed the so long as the cramping is only with her. That is in keeping with normal. Telehealth Telehealth Location of provider rendering services: practice address Location of patient: other (work) Patient Identification confirmed using: Name, : Yes Telehealth method: video Patient verbally consented to treatment: Yes Patient verbally consented to billing insurance company: Yes Patient informed of any privacy concerns related to visit: Yes Coding Level of Care Code Tele Est Pt Level 3 (66176) Diagnoses IUD check up Z30.431 Fibroids D21.9 Time Spent (min) 10 Comment 1cr/5 speaking w pt/4charting
== END 2023-04-30 11:11 | disposition home or self-care (01) ==
LOC: HO.HWSM 09:30
PROVIDERS: PCP Internal Medicine; Visit Provider Advanced Practice Midwife
DX: Z30.431 Encounter for routine checking of intrauterine contraceptive device (principal); D21.9 Benign neoplasm of connective and other soft tissue, unspecified
CPT/HCPCS: 99213

== ENCOUNTER → 2023-04-30 09:30 | Outpatient (BNVA) | payer OTHER, MEDICAID, SELFPAY | PROVIDERS: PCP Internal Medicine; Visit Provider Advanced Practice Midwife ==

== ENCOUNTER 2023-05-28 08:10 | Outpatient (REF) | payer OTHER, MEDICAID, SELFPAY ==
[2023-05-28 10:36] LABS: HBsAGNum1 0.43 S/CO (0.00-0.99); HIV AB/AG Nonreactive (Nonreactive); HIV Num 1 0.05 S/CO (0.00-0.99); Hepatitis B Surface Antigen Negative (Negative); Syphilis Screen Nonreactive (Nonreactive); ~HepC Num1 0.18 S/CO (0.00-0.79); ~Hepatitis C Antibody Nonreactive (Nonreactive)
[2023-05-28 16:29] LABS: CT PCR NOT DETECTED (Not Detect.); NG PCR NOT DETECTED (Not Detect.)
[2023-05-29 09:33] LABS: BV Int Neg Control Negative (Negative); BV Int Pos Control Positive (Positive)
== END 2023-05-28 08:11 | disposition home or self-care (01) ==
LOC: HO.LAB 08:10
PROVIDERS: PCP Internal Medicine; Visit Provider Obstetrics & Gynecology
DX: Z01.419 Encounter for gynecological examination (general) (routine) without abnormal findings (principal); Z11.4 Encounter for screening for human immunodeficiency virus [HIV]; Z20.2 Contact with and (suspected) exposure to infections with a predominantly sexual mode of transmission; N76.0 Acute vaginitis; B96.89 Other specified bacterial agents as the cause of diseases classified elsewhere
CPT/HCPCS: 0353U; 36415; 86780; 86803; 87340; 87389; 87480; 87510; 87660

== ENCOUNTER 2023-05-28 08:10 | Outpatient (AMB) | payer OTHER, MEDICAID, SELFPAY ==
--- NOTE | 2023-05-28 08:19 | MHC.OFFVIS ---
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 BV Angle Bender Required: No Information Interpreted: non-clinical & clinical Tank Car Repairer: Tank Car Repairer Present (Rica ZARCO) Accompanied by: Self / Same As Patient Allergies No Known Allergies [No Known Allergies*] Allergy (Verified 05/28/23 08:24) Is last menstrual period known: No (mirena) HPI HPI Comments History of Present Illness Details Presenting for annual exam. Complaining of vaginal discharge associated with foul odor, no itching Last Pap/HPV was negative in 05/09 Last Mammogram was BI-RADS 3 in 07/09 [facility] Medical History GERD (gastroesophageal reflux disease) COVID-19 vaccine series completed Hx of migraine headaches Hx of ectopic Surgical History History of esophagogastroduodenoscopy (EGD) H/O colonoscopy History of salpingectomy Hx of cholecystectomy Family History Mother Hyperlipemia HTN (hypertension) Paternal Uncle Heart disease Maternal Aunt Diabetes Paternal Aunt Diabetes Social History Household Members: Spouse Household Members Other:: son Housing: House Are you a primary day care teacher to a significant other at home: No Do you presently have visiting nurse or other home services: No Alcohol intake: never Patient Tobacco Use Status: Never used Tobacco e-Cigarette/Vaping Use: Never Used Second Hand Smoke Exposure: No service: No Current occupational status: employed 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 Sexually active: Yes Sexual orientation: Straight/Heterosexual Gender identity: Female Cognitive needs: No Hearing needs: No Vision needs: No Female Reproductive History Menstrual Age of Menarche: 11 control method: progestin IUCD Total pregnancies: 4 Full term: 3 Number of Living Children: 3 Ectopics: 1 Date of last pap smear: 04/23/20 Date of Mammogram: 06/27/22 Review of Systems Const All systems reviewed & are unremarkable except as noted in HPI and below Card Reports as per HPI Resp Reports as per HPI GI Reports as per HPI and Reports no additional complaints Reports as per HPI Physical Exam Vital Signs: Last Vital Signs BP 114/66 05/28/23 08:23 BMI result Body Mass Index 21.9 Const General: cooperative, healthy appearing and comfortable Chest Chest palpation & inspection: normal inspection of the chest and normal palpation of entire chest wall Breast/axilla inspection: normal inspection of the breasts and normal inspection of the axillae Breast/axilla palpation: normal palpation of the breasts, normal palpation of the axillae and no axillary lymphadenopathy Resp Effort & Inspection: normal respiratory effort Auscultation: clear to auscultation bilaterally Percussion: percussion normal Cardio Palpation: normal PMI Rate: regular rate Rhythm: regular rhythm Heart sounds: no murmurs and no rubs Peripheral pulses: Peripheral pulses 2+ throughout GI Inspection: Yes normal to inspection Palpation (GI): Soft to palpation, nontender, no guarding, not rigid and No hepatosplenomegaly present Percussion: Yes normal to percussion Auscultation: normal bowel sounds Rectal Exam - Female: deferred General: Yes bladder normal to palpation External Female Exam: No lesion Speculum Exam - Vagina: normal appearance of the vagina, normal palpation, normal vaginal discharge and not erythematous Speculum Exam - Cervix: normal appearance of the cervix and normal palpation Bimanual exam- vagina & uterus: normal bimanual exam, normal palpation, uterine size normal, bladder normal to palpation, consistency normal and normal palpation Bimanual Exam- Adnexa, other: normal adnexae, no masses and no tenderness Assessment & Plan Assessment & Plan (1) Well woman exam: Code(s): Z01.419 - Encounter for gynecological examination (general) (routine) without abnormal findings Plan: Cotesting not indicated this year. Mammogram ordered. Counseled the patient about the recommended dietary allowance of 1000 mg of Calcium & 600 IU of vitamin D. The patient was instructed to perform monthly self-breast exams and to schedule an annual exam in a year; All questions answered and the patient verbalized understanding. Instructed the patient to schedule annual exam in a year (2) Bacterial vaginosis: Code(s): N76.0 - Acute vaginitis; B96.89 - Other specified bacterial agents as the cause of diseases classified elsewhere Plan: GC and chlamydia cultures with BV panel taken. Per CDC recommendation, will screen for STI, HepBs Ag, HIV, RPR, Hep C Ab ordered. Will treat with Flagyl 500 mg p.o. b.i.d. x 7 days, Instructions given to the patient to refrain from sexual activity or to use condoms consistently and correctly during the BV treatment regimen, not to douch, it might increase the risk for relapse, and to call if symptoms persist or recur. Orders: Orders MM screening mammo BI Today Z12.31 - Encounter for screening mammogram for malignant neoplasm of breast Hepatitis C Antibody Today B96.89 - Other specified bacterial agents as the cause of diseases classified elsewhere, N76.0 - Acute vaginitis HIV Ab/Ag Today B96.89 - Other specified bacterial agents as the cause of diseases classified elsewhere, N76.0 - Acute vaginitis Hepatitis B Surface Antigen Today B96.89 - Other specified bacterial agents as the cause of diseases classified elsewhere, N76.0 - Acute vaginitis Syphilis Screen Today B96.89 - Other specified bacterial agents as the cause of diseases classified elsewhere, N76.0 - Acute vaginitis Medications: New metronidazole 500 mg PO BID 14 tabs 0RF 7 days Coding Level of Care Code Est Pt Prev Care 40-64y(32235) Diagnoses Well woman exam Z01.419 Bacterial vaginosis N76.0; B96.89
[2023-05-28 08:23] VITALS: BP 114/66; BMI 21.9
== END 2023-05-28 08:42 | disposition home or self-care (01) ==
PROVIDERS: Visit Provider Obstetrics & Gynecology
DX: Z01.419 Encounter for gynecological examination (general) (routine) without abnormal findings (principal); N76.0 Acute vaginitis; B96.89 Other specified bacterial agents as the cause of diseases classified elsewhere
CPT/HCPCS: 99396

== ENCOUNTER 2023-05-28 09:19 | Outpatient (REF) | payer OTHER, MEDICAID, SELFPAY | END 2023-05-28 09:20 | disposition home or self-care (01) | LOC: HO.LNP 09:19 | PROVIDERS: Visit Provider Obstetrics & Gynecology | DX: Z13.89 Encounter for screening for other disorder (principal) ==

== ENCOUNTER 2023-06-29 10:50 | Outpatient (REF) | payer OTHER, MEDICAID, SELFPAY ==
--- NOTE | ~2023-06-29 | MM_ITS ---
EXAMINATION: MM DIAGNOSTIC DIGITAL BREAST TOMOSYNTHESIS, BILATERAL CLINICAL INFORMATION: The patient presents for recommended short interval follow-up superiorly located calcifications of the left breast originally noted on May 2021 mammography. Patient has no 2 simple cysts in the 2:00 region of the left breast 5 cm from the nipple. This was documented on sonography from 06/27/2022. COMPARISON: Mammography: This study is compared with prior exams dating back to 2021. TECHNIQUE: Digital breast tomosynthesis is performed in both the craniocaudal and mediolateral oblique views along with computer-aided detection (CAD). Synthesized 2D images are generated from the tomosynthesis. CC and lateral magnification imaging in a full lateral view of the left breast are obtained. FINDINGS: There are scattered areas of fibroglandular density (ACR BI-RADS breast composition Category b). There are no significant masses, abnormal calcifications, or other abnormalities in either breast. Few, benign, unchanged calcifications of the superior aspect of the left breast are present. There is a well-circumscribed focal asymmetry in the upper outer quadrant of the left breast corresponding to the patient's known cysts. MM/MM tomosynthesis diagnostic BI IMPRESSION: No mammographic signs of malignancy in either breast. No interval change in benign calcifications of the superior aspect of the left breast. Known benign cyst formation of the upper outer quadrant of the left breast. ASSESSMENT: BI-RADS BI-RADS 2 - Benign Findings RECOMMENDATION: 1 year F/U Results were provided to the patient at time of visit by the technologist. This patient's information was entered into a reminder system with a target due date for their next mammogram.
== END 2023-06-29 10:51 | disposition home or self-care (01) ==
LOC: HO.MAMMO 10:50
PROVIDERS: PCP Internal Medicine; Visit Provider Obstetrics & Gynecology
DX: R92.1 Mammographic calcification found on diagnostic imaging of breast (principal)
CPT/HCPCS: 77062; 77066

== ENCOUNTER → 2023-06-29 11:00 | Outpatient (BNV) | payer OTHER, MEDICAID, SELFPAY | PROVIDERS: PCP Internal Medicine; Visit Provider Radiology Diagnostic Radiology | DX: R92.1 Mammographic calcification found on diagnostic imaging of breast (principal) | CPT/HCPCS: 77062; 77066 ==

== ENCOUNTER 2024-04-14 22:06 | Emergency (ER) | payer OTHER, MEDICAID, SELFPAY ==
--- NOTE | 2024-04-14 | ECG_ITS ---
Test Reason : CHEST PAIN Blood Pressure : */* mmHG Vent. Rate : 67 BPM Atrial Rate : 67 BPM P-R Int : 148 ms QRS Dur : 88 ms QT Int : 392 ms P-R-T Axes : 50 44 52 degrees QTcB Int : 414 ms Normal sinus rhythm Low voltage QRS Borderline ECG When compared with ECG of 17-Jul-2018 15:58, No significant changes seen Referred By: Generic ED Physician Electronically Signed By: PARKER BLANTON
--- NOTE | ~2024-04-14 | CT_ITS ---
CLINICAL HISTORY: left-sided numbness CT head without contrast Comparison: CT/REG/SR - CT HEAD/BRAIN WO IV CON - 11/27/21 17:32 EDT Findings: No intra-axial mass, midline shift, hydrocephalus, or acute hemorrhage. No significant atrophy-like change or white matter disease. The visualized paranasal sinuses and mastoid air cells are normal. The orbits are unremarkable. There is no acute fracture. IMPRESSION: 1. No acute intracranial findings. This document has been electronically signed by: Nelsy Powers MD on 04/15/2024 00:57:13
--- NOTE | ~2024-04-14 | XR_ITS ---
CLINICAL HISTORY: chest pain, pain with inspiration 2 view chest x-ray Comparison: CR/MD/SR - CHEST 2 VIEWS - 07/17/18 16:30 EDT Findings: The lungs are clear. Normal size heart. No acute fracture. IMPRESSION: 1. No acute findings. This document has been electronically signed by: Nelsy Powers MD on 04/14/2024 22:57:22
[2024-04-14 22:12] VITALS: BP 139/77; PULSE 72; RESP 16; TEMP 36.7; O2SAT 98; BMI 22.7
[2024-04-14 22:23] LABS: MANUAL DIFF FLAG NO
[2024-04-14 22:25] LABS: Basophils Percent Auto 0.3 % (0-2); Eosinophils Absolute Auto 0.1 X10*3/uL (0.0-0.4); Eosinophils Percent Auto 1.2 % (0-4); Hematocrit 37.5 % (37.0-47.0); Imm Gran Abs Auto 0.01 X10*3/uL (0.00-0.03); Imm Gran Pct Auto 0.1 % (0.0-0.4); Lymphocytes Absolute Auto 2.1 X10*3/uL (1.2-4.9); Lymphocytes Percent Auto 30.4 % (20-40); Mean Corpuscular HGB Conc 34.7 g/dl (31.0-35.0); Mean Corpuscular Volume 86.4 fL (80.0-98.0); Mean Platelet Volume 10.3 fL (9.4-12.3); Monocytes Absolute Auto 0.7 X10*3/uL (0.1-1.2); Monocytes Percent Auto 10.5 % (2-11); Neutrophils Absolute Auto 3.9 x10*3/uL (2.0-8.3); Neutrophils Percent Auto 57.5 % (45-73); Platelet Count 256 X10*3/uL (160-400); Red Blood Count 4.34 X10*6/uL (4.20-5.50); Red Cell Distribution Width 12.5 % (11.0-16.0); White Blood Count 6.8 X10*3/uL (4.8-10.8)
[2024-04-14 22:30] LABS: INTERNATIONAL NORM RATIO 1.1 (0.9-1.1); Prothrombin Time 12.9 SEC (10.9-12.4)
[2024-04-14 22:40] LABS: Alanine Aminotransferase 12 U/L (0-31); Albumin Level 4.2 g/dL (3.5-5.0); Alkaline Phosphatase 49 U/L (39-117); Anion Gap 7 (12-20); Aspartate Amino Transferase 17 U/L (5-31); Bilirubin Total 0.7 mg/dL (0.0-1.0); Blood Urea Nitrogen 12 mg/dL (9-16); Calcium 8.9 mg/dL (8.4-10.2); Carbon Dioxide 29 mmol/L (22-29); Chloride 108 mmol/L (96-108); Creatinine Clr Calc Pharmacy 80.2; Estimated Glomerular Filt Rate > 60; Glucose Random 85 mg/dL (60-115); Lipase 38 U/L (8-78); Magnesium 2.1 mg/dL (1.6-2.6); Sodium 140 mmol/L (135-145); Total Protein 7.2 g/dL (6.5-8.0)
[2024-04-14 22:51] LABS: Troponin-I High Sensitivity < 2.7 ng/L (<3.5-17.0)
--- NOTE | 2024-04-15 00:04 | ED.CHESTPAIN ---
HPI - Chest Pain General Chief Complaint: Chest Pain Stated Complaint: chest pain,face,fingers tingly Time Seen by Provider: 04/14/24 23:28 Source: patient Mode of arrival: ambulatory Limitations: no limitations History of Present Illness ED Provider: DR. Conley HPI narrative: 44-year-old female came in for evaluation of left-sided chest pain started at 18:00 last night patient also felt numbness in her left arm with the chest pain that lasted for over 2 hours, patient got anxious and felt numbness in the whole entire left side with no weakness, no slurred speech. While patient in the ED and during the exam patient feels improvement of her symptoms. Related Data Home Medications ?Medication ?Instructions ?Recorded ?Confirmed levonorgestrel 21 mcg/24 hr (up to 1 device vaginal ONCE 04/05/20 04/30/23 8 years) 52 mg intrauterine device sumatriptan succinate 50 mg tablet 50 mg PO DAILY PRN 05/23/22 04/30/23 Previous Rx's ?Medication ?Instructions ?Recorded metronidazole 500 mg tablet 500 mg PO BID 7 days #14 tabs 05/28/23 Allergies Allergy/AdvReac Type Severity Reaction Status Date / Time No Known Allergies Allergy Verified 04/14/24 22:14 [No Known Allergies*] Review of Systems Review of Systems: all other systems are reviewed and are negative Constitutional: Reports as per HPI and Reports no additional constitutional complaints Eyes: Reports as per HPI and Reports no additional eye complaints Reports system reviewed and no additional complaints, except as documented Cardiovascular: Reports as per HPI and Reports no additional cardiovascular complaints Respiratory: Reports as per HPI and Reports no additional respiratory complaints Gastrointestinal: Reports as per HPI and Reports no additional gastrointestinal complaints Genitourinary: Reports no additional female genitourinary complaints Musculoskeletal: Reports no additional musculoskeletal complaints Skin/Breast: Reports system reviewed and no additional complaints, except as docu Psychiatric: Reports no additional psychiatric complaints Endocrine: Reports no additional endocrine complaints Hematologic/Lymphatic: Reports no additional hematologic/lymphatic complaints Allergic/Immunologic: Reports no additional allergic/immunologic complaints Reports system reviewed and no additional complaints, except as documented and Reports Abnormal speech present PMFSH Past Medical History Medical History GERD (gastroesophageal reflux disease) COVID-19 vaccine series completed Hx of migraine headaches Hx of ectopic Surgical History History of esophagogastroduodenoscopy (EGD) H/O colonoscopy History of salpingectomy Hx of cholecystectomy Family History Family History Mother Hyperlipemia HTN (hypertension) Paternal Uncle Heart disease Maternal Aunt Diabetes Paternal Aunt Diabetes Social History Social History Household Members: Spouse Household Members Other:: son Housing: House Are you a primary career development consultant to a significant other at home: No Do you presently have visiting nurse or other home services: No Alcohol intake: never Patient Tobacco Use Status: Never used Tobacco Smoked in Last 30 Days: No e-Cigarette/Vaping Use: Never Used Second Hand Smoke Exposure: No Use of substances other than those prescribed or required for medical reasons: No Advance Directives: No Advance Directives Information Provided: Yes Do you have a plan to hurt others: No Plan Patient : No service: No Current occupational status: employed 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 Blood pressure elevated. Heart rate normal. Respiratory rate normal. Temperature normal. Oxygen saturation normal. Appearance: Alert. Oriented X3. No acute distress. Head: Normal external exam. Normocephalic. Atraumatic. No Richardson signs noted. No raccoon eyes noted Eyes: PERRLA. EOMI. Conjunctiva and sclera normal. Eyelids normal. ENT: TM's Normal. Pharynx normal. Uvula midline. Moist mucous membranes. No trismus noted. No drooling noted. No muffled voice noted. Neck: Normal inspection. Neck supple. FROM. No adenopathy. Thyroid Normal. No meningeal signs. No neck mass noted. CVS: Normal heart rate and rhythm. Heart sound normal. No murmurs noted. Pulses normal throughout. Respiratory: No respiratory distress. Painless inspiration. Breath sounds normal. No wheezes/rales/rhonchi noted. Chest nontender. No accessory muscle usage noted or decreased air movement noted. Abdomen: Soft and nontender. Bowel sounds normal in all 4 quadrants. No distention noted. No organomegaly noted. No visible injury noted. Back: No CVA tenderness. Full range of motion noted. Skin: Skin warm and dry. Normal skin color. Normal skin turgor. No rashes/lesions/lacerations noted. Extremities: No lower extremity edema. Extremities exhibit normal range of motion. Extremities nontender. Neuro: Mental status: Normal attention, orientation, memory, and affect. Cranial nerves: Pupils are equal, round and reactive to light, EOMI, visual freire are fall, face is symmetric, facial sensations are normal. Motor examination normal muscle tone, strength to 4 extremities. DTR are +2, planter's are flexor. Sensory exam; normal coordination, no ataxia, gait stable. Cerebellar exam: Iiycft-da-qutp and yajk-eq-qxrm is normal. Extrapyramidal system: No tremors, no rigidity with normal facial expressions. Pronator drift not present NIH Stroke Scale Time: 00:08 Level of Consciousness: Alert Level of Consciousness Questions: Answers both questions correctly Level of Consciousness Commands: Performs both tasks correctly Best Gaze: Normal Visual: No visual loss Facial Palsy: Normal Motor Arm (Right): No drift Motor Arm (Left): No drift Motor Leg (Right): No drift Motor Leg (Left): No drift Limb Ataxia: Absent Sensory: Normal Best Language: No aphasia Dysarthia: Normal Extinction and Inattention: No abnormality Score: 0 Course Reevaluation(s) Reevaluation #1: left-sided numbness with no neurological deficit, left-sided chest pain that is likely triggered patient's anxiety, patient has a normal neuro exam with NIH score of [address], patient had negative troponin x2. Time: 02:31 Medical Decision Making Differential Diagnosis Differential Diagnoses: The differential diagnosis associated with the presentation includes ( ACS, CVA, intracranial bleed, pneumonia, pneumothorax, pleural effusion, electrolyte derangement, severe anemia, pulmonary embolism.) Admission/Observation Consideration of admission/observation: Escalation of care including admission/observation considered Lab Data MDM Lab Attestation statement: I reviewed the patient's lab results. 04/14/24 22:18 04/14/24 22:18 Labs: Lab Results 04/14/24 04/15/24 Range/Units 22:18 00:59 WBC 6.8 (4.8-10.8) X10*3/uL RBC 4.34 (4.20-5.50) X10*6/uL Hgb 13.0 (12.0-16.0) g/dl Hct 37.5 (37.0-47.0) % MCV 86.4 (80.0-98.0) fL MCH 30.0 (27.0-33.0) pg MCHC 34.7 (31.0-35.0) g/dl RDW 12.5 (11.0-16.0) % Plt Count 256 (160-400) X10*3/uL MPV 10.3 (9.4-12.3) fL Immature Gran % (Auto) 0.1 (0.0-0.4) % Neut % (Auto) 57.5 (45-73) % Lymph % (Auto) 30.4 (20-40) % [place] % (Auto) 10.5 (2-11) % Eos % (Auto) 1.2 (0-4) % Baso % (Auto) 0.3 (0-2) % Lymph # (Auto) 2.1 (1.2-4.9) X10*3/uL [place] # (Auto) 0.7 (0.1-1.2) X10*3/uL Eos # (Auto) 0.1 (0.0-0.4) X10*3/uL Baso # (Auto) 0.0 (0.0-0.2) X10*3/uL Abs Immat Gran (auto) 0.01 (0.00-0.03) X10*3/uL Absolute Neuts (auto) 3.9 (2.0-8.3) x10*3/uL Absolute Nucleated RBC 0.000 (0.0-0.012) X10*3/uL Nucleated RBC % (auto) 0.0 (0.0-0.2) /100WBC PT 12.9 H (10.9-12.4) SEC INR 1.1 (0.9-1.1) D-Dimer High Sensitivty < 150 NG/ML Sodium 140 (135-145) mmol/L Potassium 4.0 (3.3-5.1) mmol/L Chloride 108 (96-108) mmol/L Carbon Dioxide 29 (22-29) mmol/L Anion Gap 7 L (12-20) BUN 12 (9-16) mg/dL Creatinine 0.78 (0.5-1.4) mg/dL Estim Creat Clear Calc 80.2 Estimated GFR > 60 Random Glucose 85 (60-115) mg/dL Calcium 8.9 D (8.4-10.2) mg/dL Magnesium 2.1 (1.6-2.6) mg/dL Total Bilirubin 0.7 (0.0-1.0) mg/dL AST 17 (5-31) U/L ALT 12 (0-31) U/L Alkaline Phosphatase 49 (39-117) U/L Troponin I High Sens < 2.7 4.2 D (<3.5-17.0) ng/L Total Protein 7.2 (6.5-8.0) g/dL Albumin 4.2 (3.5-5.0) g/dL Lipase 38 (8-78) U/L Beta HCG, Quant < 2 mIU/mL Independent Interpretation I performed an independent interpretation of an: Plain X-Ray ( Chest: No acute intrathoracic pathology.) and CT Scan ( Head: No acute intra cranial pathology.) Radiology Impression Discussion of test interpretation with radiology: I have reviewed the radiologist's reading. Discharge Plan Discharge Clinical Impression: Chest pain, Paresthesia, Anxiety Patient Disposition: Still a Patient Instructions: Chest Pain (ED), Paresthesia (ED) Prescriptions: No Action Mirena 20 mcg/24 hours (6 yrs) 52 mg intrauterine device 1 device vaginal ONCE sumatriptan succinate 50 mg tablet 50 mg PO DAILY PRN metronidazole 500 mg tablet 500 mg PO BID 7 Days Qty: 14 0RF Referrals: Dariel Bai MD [Primary Care Provider] - Print Language: [place]
[2024-04-15 00:19] VITALS: BP 108/80; PULSE 66; RESP 16; TEMP 36.9; O2SAT 98
[2024-04-15 00:36] LABS: D Dimer High Sensitivity < 150 NG/ML
[2024-04-15 00:58] LABS: HCG Quantitative < 2 mIU/mL
--- OUTSIDE RECORDS SUMMARY | 2024-04-15 01:05 | XMS_ITS ---
Author Organization [facility] [place] Address [address] [facility] [place] [address] Care Team Providers Care Corporate Scheduler Name Role Phone Richardson HATFIELD, Dariel Primary Care Provider Hi Quach Unavailable [phone] REASON FOR VISIT Fungal Nails Medications Medication SIG (Take, Route, Frequency, Duration) Notes Start Date End Date Status Levonorgestrel Activ e Dicyclomine HCl Acti ve tiZANidine HCl 4 MG 1 tablet as needed Orally Three times a day Active Omeprazole 20 MG 1 capsule 30 minutes before morning meal Orally Once a day for 30 day(s) Active SUMAtriptan Succinate 50 MG 1 tablet at least 2 hours between doses as needed Orally Twice a day Active Ciclopirox 0.77 % 1 application Beef Splitter ally Once a day Active Fwvpvvtbvf-QRF-Xnwokbrf Active Amitriptyline & Diet Manage Pr Active Ciclopirox 0.77 % 1 application to affected area Externally Twice a day for 365 days Active Topiramate 25 MG 1 tablet Orally Once a day Active Social History Tobacco Use: Social History Observation Description Date Details (start date - stop date) Never Smoker NA - NA Tobacco Use/Smoking Question Answer Notes Are you a: nonsmoker Additional Findings: Tobacco Non-User Current no n-smoker Alcohol Screen Question Answer Notes Did you have a drink contain ing alcohol in the past year? Yes How often did you have a dri nk containing alcohol in the past year? Monthly or less (1 point) Points 1 Interpretation Negative Tobacco use other than smoking: Question Answer Notes Are you an other tobacco user? No Vital Signs Height 5ft 4in in 03/26/2023 Weight 132 lbs 03/26/2023 BMI 22.66 kg/m2 03/26/2023 Encounters Encounter Location Date Provider Diagnosis [facility] [place] [address] [facility] [address] [place] [address] 03/26/2023 Hi Kp Tinea unguium B35.1 ; Pain in right toe(s) M79.674 and Pain in left toe(s) M79.675 Assessments Encounter Date Diagnosis (ICD Code) Assessment Notes Treatment Notes Treatment Clinical Notes Section Notes 03/26/2023 Tinea unguium (ICD-10 - B35.1) Response to treatment,Impro sae, Unresolved 03/26/2023 Pain in right toe(s) (ICD-10 - M79.674) 03/26/2023 Pain in left toe(s) (ICD-10 - M79.675) Plan Of Treatment Next Appt Details Follow Up: prn, Reason: Progress Notes * Aaron BLACKB: 981 (43 yo F)Acc No.[id number]:03/26/2023 Progress Note Patient:?Judy Black Provider:?Hi Goodrich DPM :1980???Age:43 Y???Sex:Female D ate:03/26/2023 Address:[address] [place] [address] Pcp:Dariel Bai MD Subjective: * Chief Complaints: * ???Fungal Nails * HPI: ???Painful Nails:?Nature:?aching, tender, discolored, thick.?Location:?Both feet.?Duration:?1 year or more.?Course:?worse.?Aggrevated by:?shoegear causing difficulty standing/walking.?Treatments:?Coclopirox topical gel , since , still, relates adherence to recom tx , still, denies any adverse side effects to medication , (i.e. adjacent periungual skin irritation, inflammation, erosion) , Lamisil , Oral Antifungal , , related adherence to recom tx , denied any adverse side effects to medication , (i.e. rash, hives, taste/GI disturbance, yellow skin/eye discoloration, discolored stools, or any other unusual bodily complaints).?Misc:?LFT #1 was normal , LFT #2 - Patient did not obtain as recommended.? * ROS:?General/Constitutional:?Nausea?denies.?Vomiting?denies.?Hunger Thirst?denies.?Loss appetite?denies.?Chills?denies.?Fatigue?denies.?Fever?denies.?Night Sweats?denies.?Unexplained weight loss?denies.?Unexplained weight gain?denies.?HEENTM:?Dentures?denies.?Dizziness?denies.?Glasses/contacts?denies.?Retinopathy?de nies.?Blurred/double vision?denies.?TMJ?denies.?Discharge/drainage?denies.?Implants?denies.?Sore throat?denies.?Dental implants?denies.?Hard of hearing ?denies.?Difficulty chewing/swallowing/speaking?denies.?Nose bleeds?denies.?Sore mouth?denies.?Respiratory:?On Oxygen?denies.?Pneumonia/pleurisy?denies.?Bronchitis?denies.?Emphysema?denies.?C oughing?denies.?Cough blood?denies.?Shortness of breath?denies.?Wheezing?denies.?Cardiovascular:?Pacemaker?denies.?MVP?denies.?WPW?denies.?CHF?denies.?Heart attack?denies.?Septal defect?denies.?Rapid beat?denies.?Chest pain ?denies.?Atrial Fib.?denies.?Murmur/Palpitations?denies.?Gastrointestinal:?Hemorrhoids?denies.?Stomach/Abdominal pain?denies.?Dark blood stool?denies.?Irritable bowel ?denies.?Constipation?denies.?Diarrhea?denies.?Hematology:?Swelling?denies.?Clots?denies.?Varicose Veins?denies.?Bruising?denies.?Bleeding problem?denies.?Genitourinary:?Blood urine?denies.?Frequent/Painfu/urination/bladder control?denies.?Kidney stones?denies.?Infection (UTI)?denies.?Nephropathy?denies.?sex trans dis (STD)?denies.?Prostate?denies.?Musculoskeletal:?Hammertoes?denies.?Bunions?denies.?Back Pain?denies.?Muscle Cramps/ Resting?denies.?Muscle cramps / walking?denies.?Generalized aches and pains?denies.?Weakness?denies.?Integ.:?[place]?denies.?Scars?denies.?Corns/calluses?denies.?Ingrown nails?denies.?Painful nails?admits.?Open Sores?denies.?Rashes?denies.?Neurologic:?Difficulty sleeping?admits.?Brain disorder?denies.?Numbness?denies.?Balance trouble?denies.?Confusion?denies.?Fainting/blackouts?denies.?Tingling?admits.?Tr emors?denies.? * Medical History:? * Surgical History:?colonoscop y salpingo-oophorectomy cholecystectomy 2019eptopic 2010 * Hospitalization/Major Diagno stic Procedure:?No Hospitalization History. * Family History:?Mother: arash martinez, hyperlipidemia, diagnosed with Unspecified essential hypertension.?Father: alive.?Spouse: alive.?Maternal Grand Father: diagnosed with Diabetic - NIDDM, Other malignant neoplasm of unspecified site.?Maternal aunt: diagnosed with Diabetic - NIDDM, Unspecified heart disease.?Maternal uncle: diagnosed with Diabetic - NIDDM.?Siblings: diagnosed with Unspecified essential hypertension.? * Social History:?Tobacco Use:?Tobacco Use/Smoking?Are you a:?nonsmoker ?Additional Findings: Tobacco Non-User?Current non-smoker ?Tobacco use other than smoking?Are you an other tobacco user??No ???Drugs/Alcohol:?Drugs?Have you used drugs other than those for medical reasons in the past 12 months??No ?Alcohol Screen?Did you have a drink containing alcohol in the past year??Yes ?How often did you have a drink containing alcohol in the past year??Monthly or less (1 point) ?Points?1 ?Interpretation?Negative ???Miscellaneous:?Caffeine: yes, 1 cup per day. ?Children: yes, 3. ?Exercise: walking, bike riding, occassion exercise, listening to music. ?Marital status: . 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 * Medications:?TakingAmitripty line & Diet Manage Pr Fsrtnhltab-RST-Qzfcxaep Ciclopirox 0.77 % Gel 1 application Externally Once a dayDicyclomine HCl Levonorgestrel Omeprazole 20 MG Capsule Delayed Release 1 capsule 30 minutes before morning meal Orally Once a daySUMAtriptan Succinate 50 MG Tablet 1 tablet at least 2 hours between doses as needed Orally Twice a daytiZANidine HCl 4 MG Tablet 1 tablet as needed Orally Three times a dayTopiramate 25 MG Tablet 1 tablet Orally Once a dayCiclopirox 0.77 % Gel 1 application to affected area Externally Twice a dayMedication List reviewed and reconciled with the patientTaking Amitriptyline & Diet Manage Pr Taking Hlayfffwcn-CHC-Ssqrvpjl Taking Ciclopirox 0.77 % Gel 1 application Externally Once a dayTaking Dicyclomine HCl Taking Levonorgestrel Taking Omeprazole 20 MG Capsule Delayed Release 1 capsule 30 minutes before morning meal Orally Once a dayTaking SUMAtriptan Succinate 50 MG Tablet 1 tablet at least 2 hours between doses as needed Orally Twice a dayTaking tiZANidine HCl 4 MG Tablet 1 tablet as needed Orally Three times a dayTaking Topiramate 25 MG Tablet 1 tablet Orally Once a dayTaking Ciclopirox 0.77 % Gel 1 application to affected area Externally Twice a dayMedication List reviewed and reconciled with the patient * Allergies:?yes[Allergies Clara ified] Objective: * Vitals:?Ht: 5ft 4in, Wt:132, BMI:22.66, Shoe size: 8, Ht-cm: 162.56 cm, Wt-k.87 kg. * Examination: ???Nails: ?NAILS are:?Elongated, overgrown, dystrophic, lytic, greater than 3mm thick, discolored and friable with crumbly malodorous subungual debris, with pain on palpation , proximal clearing of nail 70 percent, TA , proximal clearing of nail 10 percent, T2, proximal clearing of nail 0 percent, T4, proximal clearing of nail 60-70 percent, T5, proximal clearing of nail 0 percent, T9.? Assessment: * Assessment: 1.?Tinea unguium - B35.1 (Pr imary), Chronic problem, Stable (1=3,2=4),Rx Management (4), Response to treatment,Improved, Unresolved?2.?Pain in right toe(s) - M79.674?3.?Pain in left toe(s) - M79.675? Plan: * Treatment: * Procedure Codes:? * Preventive Medicine:? ??Counseling:?Discussion:?-13: Office or other outpatient visit for the evaluation and management of an established patient, which required a medically appropriate history and/or examination and LOW level of DECISION MAKING for: 1 STABLE ACUTE UNCOMPLICATED PROBLEM, 2 OR MORE MINOR PROBLEMS, OR 1 STABLE CHRONIC PROBLEM, THAT POSE(S) A LOW RISK FOR MORBIDITY/MORTALITY. The visit on the day of the encounter encompassed interpreting the data and educating the patient as to the nature of their condition, treatment options available according to their individual PMH, meds, allergies, and overall health/living conditions, as well as any potential risks or complications that may occur from a failure to adhere to, and participate in, the recommended course of therapy. The discussion included a complete verbal, and/or written explanation of the examination results, any x-rays taken, the proposed diagnosis, and outline of the treatment plan. A schedule for future care needs was also explained. The patient verbalized an understanding of the instructions at this time and agreed to be an active participant in their treatment. If the patient should think of any questions or concerns after the visit, I have encouraged the patient to call the office.?Fungal Nail Counseling:?The Pt prefers to cont topical treatment, Ciclopirox 0.77 gel as directed to nails twice daily until refills are complete, Nail debridement performed extensively to reduce/remove overall nail length, girth, thickness, subungual debris, and necrotic tissue, by manual and electrical means through the use of a nail nipper and/or dremel, to more viable healthy nail plate or bed tissue. Silver nitrate used for any petechial bleeding as necessary.? * Follow Up:?prn * Images: * Sign off status: Completed true * Provider:Finn Goodrich DPM Date:?2023 Generated for Johann hernandez/Zan/Ruel on:?04/15/2024 01:05 AM EST History and Physical Notes * HPI (History of Present Illness) Category Sub-Category Detail Notes Category Not es Painful Nails Aggravated by: shoegear causing difficulty standing/walking Course: worse Duration: 1 year or more Location: Both feet Nature: aching, tender, disc olored, thick Treatments: Coclopirox topical g el , since , still, relates adherence to recom tx , still, denies any adverse side effects to medication , (i.e. adjacent periungual skin irritation, inflammation, erosion) , Lamisil , Oral Antifungal , - , related adherence to recom tx , denied any adverse side effects to medication , (i.e. rash, hives, taste/GI disturbance, yellow skin/eye discoloration, discolored stools, or any other unusual bodily complaints) Severity/Quality: Misc: LFT #1 was normal , LFT #2 - Patient did not obtain as recommended Examination Category Sub-Category Detail Notes Category Not es Nails NAILS are: Elongated, overg rown, dystrophic, lytic, greater than 3mm thick, discolored and friable with crumbly malodorous subungual debris, with pain on palpation , proximal clearing of nail 70 percent, TA , proximal clearing of nail 10 percent, T2, proximal clearing of nail 0 percent, T4, proximal clearing of nail 60-70 percent, T5, proximal clearing of nail 0 percent, T9
--- OUTSIDE RECORDS SUMMARY | 2024-04-15 01:06 | XMS_ITS | Patient Health Record ---
Author Organization [facility] Address [address] [place] [address] Care Team Providers Care Character Actress Name Role Phone Dariel Bai MD Primary Care Provider Jensen Merrill Unavailable [phone] ALLERGIES No Known Allergies REASON FOR REFERRAL No Information MEDICATIONS Medication SIG (Take, Route, Frequency, Duration) Notes Start Date End Date Status Amitriptyline HCl 50 MG Oral for 90 Active SUMAtriptan Succinate 50 MG Oral for 9 Active Omeprazole 20 MG Oral for 30 started 04/07/21 Active Dicyclomine HCl 10 MG 1 or 2 Orally Q 6 hours prn abdominal pain/discomfort/ cramps for 30 day(s) Please tell patient to call my office to schedule an appointment. Thanks Active IMMUNIZATIONS Vaccine Route Administration Date Status Comme nts Influenza Unknown 04/13/2021 Refused SOCIAL HISTORY Tobacco Use: Social History Observation Description Date Details (start date - stop date) Never Smoker NA - NA Sex Assigned At : Social History Observation Description Sex Assigned At Unknown Tobacco Use/Smoking Question Answer Notes Patient is a nonsmoker Alcohol Screen Question Answer Notes Did you have a drink contain ing alcohol in the past year? Yes How often did you have a dri nk containing alcohol in the past year? Monthly or less (1 point) How many drinks did you have on a typical day when you were drinking in the past year? 1 or 2 drinks (0 point) How often did you have 6 or more drinks on one occasion in the past year? Never (0 point) Points 1 Interpretation Negative PROBLEMS Problem Type ICD Code Onset Dates Problem Status W/U Status Risk SNOMED Code Notes Problem Abdominal pain, diffuse (R10.84) Active confirmed 544512754 Problem Epigastric pain (R10.13) Active confirmed 49297073 PLAN OF TREATMENT Future Test Test Name Order Date UPPER GI ENDOSCOPY 04/13/2021 Insurance Providers Payer Name Payer Address Payer Phone Subscriber Number Group Number Insured Name Patient Relationship to Insured Coverage Start Date Coverage End Date [facility] [address] [facility] [place] [id number] ARACELI SALDIVAR Self - patient is the insured MEDICAID OF [facility] [address] [place] [address] [id number] ARACELI SALDIVAR Self - patient is the insured MEDICAL (GENERAL) HISTORY Medical History History ICD Code Migraine Denies [place],DM,CVA,Lung disease,renal dise ase Neg. colonoscopy with Dr. Regan in 2018 , including biopsies Neg EGD except for Hpylori w ith Dr. Regan in 2018--normal duodenal bioosies, small hiatal hernia, minimal gastritis--the H.pylori was reportedly treated Surgical History Surgery Date(Month/Year) CCY 2019 Ectopic 2010
--- OUTSIDE RECORDS SUMMARY | 2024-04-15 01:06 | XMS_ITS ---
Author Organization [facility] [place] Address [address] [facility] [place] [address] Care Team Providers Care Residential Direct Support Professional Name Role Phone Richardson HATFIELD, Dariel Primary Care Provider Hi Quach Unavailable [phone] Allergies No Known Allergies REASON FOR VISIT Fungal Nails Medications Medication SIG (Take, Route, Frequency, Duration) Notes Start Date End Date Status Ciclopirox 0.77 % 1 application to affected area Externally Twice a day for 365 days Active tiZANidine HCl 4 MG 1 tablet as needed Orally Three times a day Active Topiramate 25 MG 1 tablet Orally Once a day Active Ciclopirox 0.77 % 1 application Radiopharmacist ally Once a day Active Dicyclomine HCl Acti ve Levonorgestrel Activ e Omeprazole 20 MG 1 capsule 30 minutes before morning meal Orally Once a day for 30 day(s) Active SUMAtriptan Succinate 50 MG 1 tablet at least 2 hours between doses as needed Orally Twice a day Active Amitriptyline & Diet Manage Pr Active Ycthyvaaqg-HNV-Lmomcpee Active Social History Tobacco Use: Social History [...] tobacco user? No Vital Signs Height 5ft 4 in in 01/01/2023 Weight 126 lbs 01/01/2023 BMI 21.63 kg/m2 01/01/2023 Encounters Encounter Location Date Provider Diagnosis [facility] [place] [address] [facility] [address] [place] [address] 01/01/2023 Hi Goodrich Tinea unguium B35.1 ; Pain in right toe(s) M79.674 and Pain in left toe(s) M79.675 Assessments Encounter Date Diagnosis (ICD Code) Assessment Notes Treatment Notes Treatment Clinical Notes Section Notes 01/01/2023 Tinea unguium (ICD-10 - B35.1) Response to treatment,Unres olved 01/01/2023 Pain in right toe(s) (ICD-10 - M79.674) 01/01/2023 Pain in left toe(s) (ICD-10 - M79.675) Plan Of Treatment Next Appt Details Follow Up: 3 Months, Reason: Progress Notes * Aaron BLACKB: 981 (42 yo F)Acc No.[id number]:01/01/2023 Progress Note Patient:?Juan, Judy Provider:?Hi Goodrich DPM :1980???Age:42 Y???Sex:Female D ate:01/01/2023 Address:[address] [place] [address] Pcp:Dariel Bai MD Subjective: * Chief Complaints: * ???Fungal Nails * HPI: ???Painful Nails:?Nature:?aching, tender, discolored, thick.?Location:?Both feet.?Duration:?1 year or more.?Course:?worse.?Aggrevated by:?shoegear causing difficulty standing/walking.?Treatments:?Coclopirox topical gel , since , still, relates adherence to recom tx , denies any adverse side effects to medication , (i.e. adjacent periungual skin irritation, inflammation, erosion) , Lamisil , Oral Antifungal , -?, related adherence to recom tx , denied any adverse side effects to medication , (i.e. rash, hives, taste/GI disturbance, yellow skin/eye discoloration, discolored stools, or any other unusual bodily complaints).?Misc:?LFT #1 normal , LFT #2 - Patient did not return to office to obtain.? * ROS:?General/Constitutional:?Nausea?denies.?Vomiting?denies.?Hunger Thirst?denies.?Loss appetite?denies.?Chills?denies.?Fatigue?denies.?Fever?denies.?Night Sweats?denies.?Unexplained weight loss?denies.?Unexplained [...] * Medications:?TakingAmitripty line & Diet Manage Pr Zihselnriv-LAB-Jinueveh Ciclopirox 0.77 % Gel 1 application Externally [...] application to affected area Externally Twice a dayTaking Amitriptyline & Diet Manage Pr Taking Xkgwpfobjs-EYN-Nfkakfdw Taking Ciclopirox 0.77 % Gel 1 application [...] application to affected area Externally Twice a dayDiscontinuedLamISIL 250 MG Tablet 1 tablet Orally Once a dayLFT . . . . .Medication List reviewed and reconciled with the patientDiscontinued LamISIL 250 MG Tablet 1 tablet Orally Once a dayDiscontinued LFT . . . . .Medication List reviewed and reconciled with the patient * Allergies:?N.K.D.A.yes[Aller gies Verified] Objective: * Vitals:?Ht:5ft 4 in, Wt:126, BMI:21.63, Shoe size:8, Ht-cm: 162.56 cm, Wt-k.15 kg. * Examination: ???Nails: ?NAILS are:?Elongated, overgrown, dystrophic, lytic, greater than 3mm thick, discolored and friable with crumbly malodorous subungual debris, with pain on palpation , proximal clearing of nail 50 percent, TA , proximal clearing of nail 0 percent, T2, proximal clearing of nail 0 percent, T4, proximal clearing of nail 60 percent, T5, proximal clearing of nail 0 percent, T9.? Assessment: * Assessment: 1.?Tinea unguium - B35.1 (Pr imary), Chronic problem, Stable (1=3,2=4),Rx Management (4), Response to treatment,Unresolved?2.?Pain in right toe(s) - M79.674?3.?Pain in left [...] the patient to call the office.?Fungal Nail Counseling:?Pt never returned for follow up for the another LFT that was ordered, The Pt prefers to cont topical treatment, Ciclopirox 0.77 gel as directed to nails twice daily, Nail debridement performed extensively to reduce/remove overall nail length and girth, subungual debris, and necrotic tissue, by manual and electrical means with use of a nail nipper and/or dremel, to more viable healthy nail plate or bed tissue. Silver nitrate used for any petechial bleeding as necessary.? * Follow Up:?3 Months * Images: * Sign off status: Completed true * Provider:?Hi Goodrich DPM Date:?2022 Generated for Johann hernandez/Zan/Ruel on:?04/15/2024 01:05 AM [...] still, relates adherence to recom tx , denies any adverse side effects to medication , (i.e. adjacent periungual skin irritation, inflammation, erosion) , Lamisil , Oral Antifungal , , related adherence to recom tx , denied any adverse side effects to medication , (i.e. rash, hives, taste/GI disturbance, yellow skin/eye discoloration, discolored stools, or any other unusual bodily complaints) Severity/Quality: Misc: LFT #1 normal , LFT #2 - Patient did not return to office to obtain Examination Category Sub-Category Detail Notes Category Not es Nails NAILS are: Elongated, overg rown, dystrophic, lytic, greater than 3mm thick, discolored and friable with crumbly malodorous subungual debris, with pain on palpation , proximal clearing of nail 50 percent, TA , proximal clearing of nail 0 percent, T2, proximal clearing of nail 0 percent, T4, proximal clearing of nail 60 percent, T5, proximal clearing of nail 0 percent, T9
--- OUTSIDE RECORDS SUMMARY | 2024-04-15 01:06 | XMS_ITS ---
Author Organization [facility] Address [address] [place] [address] Care Team Providers Care System Trainer Name Role Phone Richardson HATFIELD, Dariel Primary Care Provider Unavaila Hi Haney Unavailable [phone] Encounters Encounter Location Date Provider Diagnosis [facility] [address] [address] 11/08/2022 Hi Goodrich Plan Of Treatment No Information Progress Notes * Aaron BLACKB: [birth year] (44 yo F)Acc No.[id number]:11/08/2022 Progress Notes Patient:Dwayne SANCHEZcia Provider:?Hi Goodrich DPM :1980???Age:42 Y???Sex:Female D ate:11/08/2022 Address:[address] [place], [place] [id number] Pcp:Dariel Bai MD Subjective: * Chief Complaints: * ??? * Medical History:? Objective: * Vitals:? Assessment: Plan: * Treatment: * Images: * The named appointment provid er may or may not be the originator of this progress note, and it is not deemed complete until electronically signed by the appointment provider. Sign off status: Pending * Provider:?Hi Goodrich DPM Date:?2022 Generated for Johann hernandez/Zan/eTjamiesmitting on:?04/15/2024 01:06 AM EST
[2024-04-15 01:28] LABS: Troponin-I High Sensitivity 4.2 ng/L (<3.5-17.0)
[2024-04-15 02:58] VITALS: BP 109/62; PULSE 64; RESP 16; TEMP 36.6; O2SAT 99
[2024-04-15 02:59] VITALS: BP 109/62; PULSE 64; RESP 16; TEMP 36.6; O2SAT 99
== END 2024-04-15 03:04 | disposition home or self-care (01) ==
PROVIDERS: Emergency Provider Emergency Medicine; PCP Internal Medicine
DX: R07.9 Chest pain, unspecified (principal); R20.2 Paresthesia of skin; F41.9 Anxiety disorder, unspecified; Z79.899 Other long term (current) drug therapy; R10.2 Pelvic and perineal pain; K21.9 Gastro-esophageal reflux disease without esophagitis
CPT/HCPCS: 36415; 70450; 71046; 80053; 83690; 83735; 84484; 84702; 85025; 85379; 85610; 93005; 99284

== ENCOUNTER → 2024-04-14 22:10 | Outpatient (BNV) | payer OTHER, MEDICAID, SELFPAY | PROVIDERS: Emergency Provider Emergency Medicine; PCP Internal Medicine; Visit Provider Internal Medicine | DX: R07.9 Chest pain, unspecified (principal) | CPT/HCPCS: 93010 ==

== ENCOUNTER → 2024-04-14 22:28 | Outpatient (BNV) | payer OTHER, MEDICAID, SELFPAY | PROVIDERS: PCP Internal Medicine; Visit Provider Radiology Diagnostic Radiology | DX: R07.1 Chest pain on breathing (principal) | CPT/HCPCS: 71046 ==

== ENCOUNTER → 2024-04-15 00:03 | Outpatient (BNV) | payer OTHER, MEDICAID, SELFPAY | PROVIDERS: Emergency Provider Emergency Medicine; PCP Internal Medicine; Visit Provider Radiology Diagnostic Radiology | DX: R20.2 Paresthesia of skin (principal) | CPT/HCPCS: 70450 ==

== ENCOUNTER 2024-07-11 07:19 | Outpatient (REF) | payer OTHER, SELFPAY ==
--- OUTSIDE RECORDS SUMMARY | 2024-07-11 07:22 | XMS_ITS | Patient Health Record ---
Author Organization [facility] Address [address] [place] [address] Care Team Providers Care Cylinder Inspector And Tester Name Role Phone Dariel Bai MD Primary Care Provider Hi Quach Unavailable [phone] Allergies No Known Allergies Reason For Referral No Information Medications Medication SIG (Take, Route, Frequency, Duration) Notes Start Date End Date Status Levonorgestrel Activ e Dicyclomine HCl Acti ve Qinevypuse-LBO-Apcjwnkc Active Amitriptyline & Diet Manage Pr Active Ciclopirox 0.77 % APPLY 1 APPLICATION TO AFFECTED AREA EXTERNALLY TWICE A DAY for 30 Active tiZANidine HCl 4 MG 1 tablet as needed Orally Three times a day Active Topiramate 25 MG 1 tablet Orally Once a day Active Omeprazole 20 MG 1 capsule 30 minutes before morning meal Orally Once a day for 30 day(s) Active SUMAtriptan Succinate 50 MG 1 tablet at least 2 hours between doses as needed Orally Twice a day Active Immunizations Vaccine Route Administration Date Status Comme nts COVID-19 Moderna Vaccine Unknown 12/29/2020 Administere d 06/01/20,06/29/20 Social History Tobacco Use: Social History Observation [...] Are you an other tobacco user? No Problems Problem Type SNOMED Code ICD Code Onset Dates Problem Status W/U Status Risk Notes Problem Tinea unguium (856993736) Tinea unguium (B35.1) Active confirmed Response to treatment,Impr chon, Unresolved Plan Of Treatment No Information Insurance Providers Payer Name Payer Address Payer Phone Subscriber Number Group Number Insured Name Patient Relationship to Insured Coverage Start Date Coverage End Date [facility] [address] [place] [address] [id number] Judy Brooks Self - patient is the insured Medical (General) History Medical History History ICD Code covid-19 Gastroesophageal reflux disease (GERD) Headaches/Migraines Gall bladder problems Tuberculosis Eptopic Surgical History Surgery Date(Month/Year) colonoscopy salpingo-oophorectomy cholecystectomy 2019 eptopic 2009
--- OUTSIDE RECORDS SUMMARY | 2024-07-11 07:22 | XMS_ITS ---
Author Organization [facility] Address [address] [facility] [place] [address] Care Team Providers Care Supervisor Electric Motor Testing Name Role Phone Richardson HATFIELD, Dariel Primary Care Provider Hi Quach Unavailable [phone] REASON FOR VISIT Fungal Nails Medications Medication [...] day Active Ciclopirox 0.77 % 1 application Museum Registrar ally Once a day Active Tffgtdlgpc-GYY-Fwkgzdes Active Amitriptyline & Diet Manage Pr Active [...] 03/26/2023 Encounters Encounter Location Date Provider Diagnosis [facility] [address] [facility] [address] [place] [address] 03/26/2023 Hi Kp Tinea unguium B35.1 ; [...] * Aaron BLACKB: [birth year] (43 yo F)Acc No.[id number]:03/26/2023 Progress Note Patient:?Judy Black Provider:?Hi Goodrich DPM :1980???Age:43 Y???Sex:Female D ate:03/26/2023 Address:[address] [place] [address] Pcp:Dariel Bai MD Subjective: * Chief Complaints: [...] * Medications:?TakingAmitripty line & Diet Manage Pr Yxfwazyrlj-URY-Dbypuslw Ciclopirox 0.77 % Gel 1 application Externally [...] patientTaking Amitriptyline & Diet Manage Pr Taking Angxsdjdsi-FXG-Kiaglach Taking Ciclopirox 0.77 % Gel 1 application [...] Goodrich DPM Date:?2023 Generated for Johann hernandez/Zan/Ruel on:?07/11/2024 07:21 AM EDT History and Physical Notes * HPI (History [...]
== END 2024-07-11 07:20 | disposition home or self-care (01) ==
LOC: HO.MAMMO 07:19
PROVIDERS: Visit Provider Internal Medicine
DX: Z12.31 Encounter for screening mammogram for malignant neoplasm of breast (principal)
CPT/HCPCS: 77063; 77067

== ENCOUNTER → 2024-07-11 07:30 | Outpatient (BNV) | payer OTHER, SELFPAY | PROVIDERS: Visit Provider Internal Medicine | DX: Z12.31 Encounter for screening mammogram for malignant neoplasm of breast (principal) | CPT/HCPCS: 77063; 77067 ==

== ENCOUNTER 2024-08-12 08:24 | Outpatient (AMB) | payer OTHER, SELFPAY ==
--- NOTE | 2024-08-12 08:26 | AM.OFFWIN_ITS ---
Intake Vital Signs 08/12/24 08:31 Height 5 ft 4 in Weight 132 lb BMI 22.7 BP 110/76 Blood Pressure Location Rt brachial Position Sitting Pulse 88 Pulse Source Pulse Oximeter Temp 98.2 F Temp Source Oral Pulse Oximetry (%) 98 Intake Visit Reasons: EP-face pressure, body ache, fever Patient Tobacco Use Status: Never used Tobacco Allergies No Known Allergies [No Known Allergies*] Allergy (Verified 08/12/24 08:31) Do you need a note to return to daycare/school/sports/work: Yes HPI HPI Comments History of Present Illness Details 44 y/o Female patient who presents to walk in clinic with c/o URI symptoms since . Pt c/o Sinus pressure, Runny nose, generalized Body aches and Subjective fevers. [facility] Medical History (Updated 08/12/24 @ 09:03 by Mckenzie Hsu NP) Acute respiratory disease GERD (gastroesophageal reflux disease) COVID-19 vaccine series completed Hx of migraine headaches Hx of ectopic Surgical History History of esophagogastroduodenoscopy (EGD) H/O colonoscopy History of salpingectomy Hx of cholecystectomy Family History Mother Hyperlipemia HTN (hypertension) Paternal Uncle Heart disease Maternal Aunt Diabetes Paternal Aunt Diabetes Social History Household Members: Spouse Household Members Other:: son Housing: House Are you a primary hemodialysis patient care specialist to a significant other at home: No Do you presently have visiting nurse or other home services: No Alcohol intake: never Patient Tobacco Use Status: Never used Tobacco e-Cigarette/Vaping Use: Never Used Second Hand Smoke Exposure: No service: No Current occupational status: employed 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 Sexual orientation: Straight/Heterosexual Gender identity: Female Cognitive needs: No Hearing needs: No Vision needs: No Female Reproductive History Menstrual Age of Menarche: 11 Review of Systems Const All systems reviewed & are unremarkable except as noted in HPI and below Physical Exam Vital Signs: Last Vital Signs Temp 98.2 F 08/12/24 08:31 Pulse 88 08/12/24 08:31 BP 110/76 08/12/24 08:31 Pulse Ox 98 08/12/24 08:31 BMI result Body Mass Index 22.7 Const General: no acute distress Nutritional Appearance: thin Orientation/consciousness: patient oriented x3 HEENT Head: Yes normocephalic Ears: external ears normal and TM abnormal with fluid behind the TM bilateral General nose exam: Normal external nose present and Nasal discharge present Face and sinus: Yes sinus tenderness Mouth: moist mucous membranes Throat: Yes uvula midline Resp Effort & Inspection: normal respiratory effort and able to speak in complete sentences Auscultation: clear to auscultation bilaterally, no crackles, no rales, no rhonchi and no wheezes Cardio Rhythm: regular rhythm Heart sounds: S1 normal heart sound present and S2 normal heart sound present Neuro General: patient oriented x3 Assessment & Plan Assessment & Plan (1) Acute respiratory disease: Code(s): J06.9 - Acute upper respiratory infection, unspecified Plan: Acetaminophen for pain relief. Rest and hydrate well with warm fluids. OTC cold remedies. Coding Level of Care Code Est Pt Level 4 (62525) Diagnoses Acute respiratory disease J06.9 Time Spent (min) 20
[2024-08-12 08:31] VITALS: BP 110/76; PULSE 88; TEMP 36.8; O2SAT 98; BMI 22.7
--- OUTSIDE RECORDS SUMMARY | 2024-08-12 08:41 | XMS_ITS | Patient Health Record ---
Author Organization [facility] Center[facility] Address [address] [facility] [place] [address] Care Team Providers Care Floor Refinisher Name Role Phone Dariel Bai MD Primary Care Provider Hi Quach Unavailable [phone] Allergies No Known Allergies Reason For Referral No Information Medications Medication SIG (Take, Route, Frequency, Duration) Notes Start Date End Date Status Levonorgestrel Activ e Dicyclomine HCl Acti ve Jjqkkmdquw-WFE-Rwjszuhp Active Amitriptyline & Diet Manage Pr Active [...] W/U Status Risk Notes Problem Tinea unguium ([id number]) Tinea unguium (B35.1) Active confirmed Response to treatment,Impr chon, Unresolved Plan Of Treatment No Information Insurance Providers Payer Name Payer Address Payer Phone Subscriber Number Group Number Insured Name Patient Relationship to Insured Coverage Start Date Coverage End Date [facility] [address] [place] [address] [id number] Judy Brooks Self - patient is the insured Medical (General) History Medical History History ICD Code covid-19 Gastroesophageal reflux disease (GERD) Headaches/Migraines Gall bladder problems Tuberculosis Eptopic Surgical History Surgery Date(Month/Year) colonoscopy salpingo-oophorectomy cholecystectomy 2019 eptopic 2009
== END 2024-08-12 09:20 | disposition home or self-care (01) ==
PROVIDERS: Visit Provider Nurse Practitioner Family
DX: J06.9 Acute upper respiratory infection, unspecified (principal)

== ENCOUNTER → 2024-08-12 08:24 | Outpatient (BNVA) | payer OTHER, SELFPAY | PROVIDERS: Visit Provider Nurse Practitioner Family ==

== ENCOUNTER 2024-10-14 10:27 | Outpatient (AMB) | payer OTHER, SELFPAY ==
[2024-10-14 10:59] VITALS: BP 118/72; BMI 22.7
--- NOTE | 2024-10-14 10:59 | MHC.OFFVIS ---
Vital Signs 10/14/24 10:59 Height 5 ft 4 in Weight 132 lb BMI 22.7 BP 118/72 Blood Pressure Location Rt brachial Position Sitting Intake Visit Reasons: IUD check Intake Note: iud check no complaints Information Interpreted: non-clinical & clinical Accompanied by: Self / Same As Patient Allergies No Known Allergies (No Known Allergies*) Allergy (Verified 10/14/24 11:05) Medication List - Last Reconciled 10/14/24 by Humaira Swanson LPN levonorgestrel 1 device vaginal ONCE sumatriptan succinate 50 mg PO DAILY PRN HPI Comments Details: Patient is here today post IUD. She has no concerns. PFS Medical History Acute respiratory disease GERD (gastroesophageal reflux disease) COVID-19 vaccine series completed Hx of migraine headaches Hx of ectopic Surgical History History of esophagogastroduodenoscopy (EGD) H/O colonoscopy History of salpingectomy Hx of cholecystectomy Family History Mother Hyperlipemia HTN (hypertension) Paternal Uncle Heart disease Maternal Aunt Diabetes Paternal Aunt Diabetes Social History Household Members: Spouse Household Members Other:: son Housing: House Are you a primary after school caregiver to a significant other at home: No Do you presently have visiting nurse or other home services: No Alcohol intake: never Patient Tobacco Use Status: Never used Tobacco e-Cigarette/Vaping Use: Never Used Second Hand Smoke Exposure: No service: No Current occupational status: employed 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 Sexual orientation: Straight/Heterosexual Gender identity: Female Cognitive needs: No Hearing needs: No Vision needs: No Female Reproductive History Menstrual Age of Menarche: 11 control method: progestin IUCD Review of Systems Const All systems reviewed & are unremarkable except as noted in HPI and below Physical Exam Vital Signs: Last Vital Signs BP 118/72 10/14/24 10:59 BMI result Body Mass Index 22.7 Const General: cooperative, healthy appearing and no acute distress Orientation/consciousness: patient oriented x3 GI Inspection: Yes normal to inspection Palpation (GI): Soft to palpation and Other GI palpation findings present (Nontender) Rectal Exam - Female: visual inspection normal General: Yes bladder normal to palpation External Female Exam: normal appearance of the urethra Speculum Exam - Vagina: normal appearance of the vagina, normal palpation and normal vaginal discharge Speculum Exam - Cervix: normal appearance of the cervix, normal palpation and Other cervical findings present (IUD strings at the os) Bimanual exam- vagina & uterus: normal bimanual exam, normal palpation, uterine size normal, bladder normal to palpation, normal palpation, uterine shape normal and non-tender Bimanual Exam- Adnexa, other: normal adnexae Neuro General: patient oriented x3 Results AMB Test Urine AMB Test Urine Negative Last Edit by Humaira Swanson LPN on 10/14/24 11:03 Results Reviewed Results Reviewed: Laboratory Last Values Tst Clinic Negative 10/14/24 11:02 Assessment & Plan Assessment & Plan (1) IUD surveillance: Code(s): Z30.431 - Encounter for routine checking of intrauterine contraceptive device Plan Reassured IUD strings are in proper position. Instructed in home to check her strings if indicated. Monitor menstrual cycle bleeding and report any abnormal bleeding patterns. Keep annual exam appointment for December 2024. The patient expressed understanding and agreement with the plan of care. All of her questions and concerns were addressed to the best of my ability. This note is constructed using voice recognition software. While every effort has been made to ensure accuracy, soda maker errors may have been included. Orders: Orders AMB HCG Urine Test Today Z32.02 - Encounter for test, result negative Coding Level of Care Code Est Pt Level 2 (00387) Diagnoses IUD surveillance Z30.431
--- OUTSIDE RECORDS SUMMARY | 2024-10-14 11:26 | XMS_ITS | Patient Health Record ---
Author Organization [facility] Address [address] [place] [address] Care Team Providers Care Scow Derrick Operator Name Role Phone Dariel Bai MD Primary Care Provider Jensen Merrill Unavailable [phone] Allergies No Known Allergies Reason For Referral [...] office to schedule an appointment. Thanks Active Immunizations Vaccine Route Administration Date Status Comme nts Influenza Unknown 04/13/2021 Refused Social History Tobacco Use: Social History Observation Description Date Details (start date - stop date) Never Smoker NA - NA Tobacco Use/Smoking Question Answer Notes Patient is [...] Never (0 point) Points 1 Interpretation Negative Section Notes: Nonsmoker; no sig alcohol Problems Problem Type SNOMED Code ICD Code Onset Dates Problem Status W/U Status Risk Notes Problem [id number] Epigastric pain (R10.13) Active confirmed Problem [id number] Abdominal pain, diffuse (R10.84) Active confirmed Plan Of Treatment Future Test Test Name Order Date UPPER GI ENDOSCOPY 04/13/2021 Insurance Providers Payer Name Payer Address Payer Phone Subscriber Number Group Number Insured Name Patient Relationship to Insured Coverage Start Date Coverage End Date [facility] [address] [facility] [place] [phone] [id number] ARACELI SALDIVAR Self - patient is the insured MEDICA[employer] OF [employer] [address] [place] [phone] [id number] ARACELI SALDIVAR Self - patient is the insured Medical (General) History Medical History History ICD Code Migraine Denies MO,DM,CVA,Lung disease,renal dise ase Neg. colonoscopy with Dr. Regan in 2018 , including biopsies Neg EGD except for Hpylori w sonal Regan in 2018--normal duodenal bioosies, small hiatal hernia, minimal gastritis--the H.pylori was reportedly treated Surgical History Surgery Date(Month/Year) CCY 2019 Ectopic 2010
--- OUTSIDE RECORDS SUMMARY | 2024-10-14 11:26 | XMS_ITS | Patient Health Record ---
Author [facility] Address [address] [facility] [place] [address] Care Team Providers Care Fermentation Engineer Name Role Phone Dariel Bai MD Primary Care Provider Hi Quach Unavailable [phone] Allergies No Known Allergies Reason For Referral No Information Medications Medication SIG (Take, Route, Frequency, Duration) Notes Start Date End Date Status Levonorgestrel Activ e Dicyclomine HCl Acti ve Brfbyvfhzm-MNM-Iprtmpdt Active Amitriptyline & Diet Manage Pr Active Ciclopirox 0.77 % APPLY 1 APPLICATION TO AFFECTED AREA EXTERNALLY TWICE A DAY; Duration: 30 Active tiZANidine HCl 4 MG 1 tablet as needed Orally Three times a day Active Topiramate 25 MG 1 tablet Orally Once a day Active Omeprazole 20 MG 1 capsule 30 minutes before morning meal Orally Once a day; Duration: 30 day(s) Active SUMAtriptan Succinate 50 MG [...] W/U Status Risk Notes Problem Tinea unguium (B35.1) Active confirmed Response to treatment,Impr chon, Unresolved Plan Of Treatment No Information Insurance Providers Payer Name Payer Address Payer Phone Subscriber Number Group Number Insured Name Patient Relationship to Insured Coverage Start Date Coverage End Date [facility] [address] [place] [address] [id number] Judy Brooks Self - patient is the insured Medical (General) History Medical History History ICD Code covid-19 Gastroesophageal reflux disease (GERD) Headaches/Migraines Gall bladder problems Tuberculosis Eptopic Surgical History Surgery Date(Month/Year) colonoscopy salpingo-oophorectomy cholecystectomy 2019 eptopic 2009
== END 2024-10-14 11:04 | disposition home or self-care (01) ==
LOC: HO.HWS 10:28
PROVIDERS: Visit Provider Advanced Practice Midwife
DX: Z30.431 Encounter for routine checking of intrauterine contraceptive device (principal); Z32.02 Encounter for pregnancy test, result negative
CPT/HCPCS: 99212

== ENCOUNTER → 2024-10-14 10:27 | Outpatient (BNVA) | payer OTHER, SELFPAY | PROVIDERS: Visit Provider Advanced Practice Midwife | DX: Z32.02 Encounter for pregnancy test, result negative (principal) | CPT/HCPCS: 81025 ==

== ENCOUNTER 2025-01-29 14:22 | Outpatient (AMB) | payer OTHER, SELFPAY ==
[2025-01-29 14:26] VITALS: BP 92/70; PULSE 74; TEMP 36.3; O2SAT 98; BMI 21.7
--- NOTE | 2025-01-29 14:26 | MHC.PC.OV ---
Vital Signs 01/29/25 14:26 Height 5 ft 4 in Weight 126 lb 8 oz BMI 21.7 BP 92/70 Blood Pressure Location Lt brachial Position Sitting Pulse 74 Pulse Source Pulse Oximeter Temp 97.3 F Temp Source Temporal Artery Scan Pulse Oximetry (%) 98 Oxygen Delivery Method Room Air Intake Visit Reasons: VONNIE DR Bai Sample Room Supervisor Required: No Correctional Manager: Not Required per policy Accompanied by: Self / Same As Patient Allergies No Known Allergies (No Known Allergies*) Allergy (Verified 01/29/25 14:33) Medication List - Last Reviewed 01/29/25 by Alisson Hernandez MA levonorgestrel 1 device vaginal ONCE sumatriptan succinate take 1 tab at onset of headache; if no relief may repeat 1 tab after at least 2 hrs; PO 30 days topiramate 25 mg PO DAILY Tobacco use date assessed: 01/29/25 Dental Screening Dental Screen Date: 01/29/25 Did you have a dental visit in the last 12 months?: Yes Did you have a dental problem in the last 6 months where you did not have access to dental care?: No Was dental information given to patient?: Patient has dentist HPI VONNIE DR Bai HPI Details 44 year old female with past medical history of migraines last seen 04/[address] Bai coming in for VONNIE. Presenting to establish care and for evaluation of chest pain. She reports approximately five episodes of chest pain, with the most recent and severe episode occurring last Sunday. The pain is described as a pressure, rated 7 out of 10 in severity, associated with shortness of breath, and occurs at rest while lying down. Episodes last from a few seconds to about two minutes. She also notes some pain down her arm during an episode. In March, she had an ER visit for chest pain and left arm numbness lasting over two hours, which was attributed to anxiety; her EKG at that time was normal and stable since 2018. There is a significant family history of heart issues, pacemakers, high blood pressure, and diabetes. Socially, the patient is experiencing significant stress due to a divorce and custody edwards since April. She sees a therapist twice a month. Not currently having any chest pain. mammogram: 06/2024 pap smears: UTD with ob/gyn physician vaccines: declined flu shot [facility] Medical History (Updated 01/29/25 @ 15:28 by Mary Ospina PA-C) Hx of migraines Pelvic pain Microscopic hematuria Insomnia Acute respiratory disease GERD (gastroesophageal reflux disease) COVID-19 vaccine series completed Hx of migraine headaches Hx of ectopic Surgical History History of esophagogastroduodenoscopy (EGD) H/O colonoscopy History of salpingectomy Hx of cholecystectomy Family History Mother Hyperlipemia HTN (hypertension) Paternal Uncle Heart disease Maternal Aunt Diabetes Paternal Aunt Diabetes Social History Household Members: Spouse Household Members Other:: son Housing: House Are you a primary long term acute care registered nurse to a significant other at home: No Do you presently have visiting nurse or other home services: No Alcohol intake: never Patient Tobacco Use Status: Never used Tobacco e-Cigarette/Vaping Use: Never Used Second Hand Smoke Exposure: No service: No Current occupational status: employed 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 1. Little interest or pleasure in doing things: not at all 2. Feeling down, depressed, or hopeless: not at all 3. Trouble falling or staying asleep, or sleeping too much: several days 4. Feeling tired or having little energy: several days 5. Poor appetite or overeating: not at all 6. Feeling bad about yourself - or that you are a failure or have let yourself or your family down: not at all 7. Trouble concentrating on things, such as reading the newspaper or watching television: not at all 8. Moving or speaking so slowly that other people could have noticed. Or the opposite - being so fidgety or restless that you have been moving around a lot more than usual: not at all 9. Thoughts that you would be better off or of hurting yourself in some way: not at all Total score: 2 Depression Screening Interpretation: Negative Depression Screening Done: Yes Source: Developed by Drs. Jensen Mohamud, Jennifer Becerra, Simeon Ahn and colleagues, with an educational silvano from [employer]. Thrive Questionnaire Date Thrive assessed: 04/20/24 I am a: Patient What is your living situation today?: I have a steady place to live Within the past 12 months, did the food you bought not last and you didn't have the money to get more?: Never true Within the past 12 months, did you worry whether your food would run out before you got money to buy more?: Never true Do you have trouble paying for medicines?: No Do you have trouble getting transportation to medical appointments?: No Do you have trouble paying your heating and electricity bill?: No Do you have trouble taking care of your child, family member or friend?: No Do you have trouble with day-to-day activities such as bathing, preparing meals, shopping, managing finances, etc.?: No Are you currently unemployed and looking for a job?: Yes Are you interested in more education?: No Please select the resources that you would like help with: None Currently or been in a relationship where the following occur: I choose not to answer THRIVE Score: 0 AUDIT C Alcohol Use Questionnaire (AUDIT-C) 1. How often do you have a drink containing alcohol?: Never Total Score: 0 Score Reviewed/Action Taken: Yes KEITH-7 AMB Questionnaire KEITH-7 Date KEITH - 7 assessed: 01/29/25 Feeling nervous, anxious, or on edge: 0 = Not at all Not being able to stop or control worryin = Not at all Worrying too much about different things: 0 = Not at all Trouble relaxin = Not at all Being so restless that it is hard to sit still: 0 = Not at all Becoming easily annoyed or irritable: 0 = Not at all Feeling afraid as if something awful might happen: 0 = Not at all Total KEITH-7 score (0-4 normal; 5-9 mild; 10-14 moderate; 15-21 severe): 0 Source: Developed by Drs. Jensen Mohamud, Jennifer Becerra, Simeon Ahn and colleagues, with an educational silvano from [employer]. Review of Systems Const Denies body aches, Denies chills, Denies fever(s), Denies headache(s) and Denies poor appetite Eyes Reports no additional complaints ENT Denies dizziness and Denies headache(s) Card Reports chest pain, Denies syncope, Denies edema, Denies irregular heart rhythm, Denies lightheadedness and Reports dyspnea (w/ chest pain ) Resp Denies cough and Reports dyspnea (w/ chest pain ) GI Denies abdominal pain, Denies nausea and Denies vomiting Reports no additional complaints Musc Reports no additional complaints and Denies abnormal gait Skin/Breast Reports system reviewed and no additional complaints, except as documented Neuro Denies abnormal gait, Denies dizziness, Denies syncope and Denies headache(s) Psych Reports no additional complaints Physical exam (Primary Care) Vital Signs: Last Vital Signs Temp 97.3 F 01/29/25 14:26 Pulse 74 01/29/25 14:26 BP 92/70 01/29/25 14:26 Pulse Ox 98 01/29/25 14:26 Oxygen Delivery Method Room Air 01/29/25 14:26 BMI result Body Mass Index 21.7 Tobacco/Smoking Status: Tobacco use Status Tobacco use date assessed 01/29/25 01/29/25 14:28 Patient Tobacco Use Status Never used Tobacco 01/29/25 14:28 e-Cigarette/Vaping Use Never Used 01/29/25 14:28 PHQ-9: PHQ-9 Score PHQ-9: Total score 2 01/29/25 14:28 Depression Screening Interpretation: Negative Thrive Assessment: Date of Thrive Assessment Date Thrive assessed 04/20/24 01/29/25 14:28 Currently or been in a relationship where the following occur: I choose not to answer Const General: cooperative, healthy appearing, comfortable and no acute distress Orientation/consciousness: patient oriented x3 [facility] Head: Yes normocephalic Ears: hearing grossly normal bilaterally General nose exam: Normal external nose present Eyes General: appearance normal, both eyes and all related structures Conjunctivae: conjunctivae normal Neck Neck: Yes full ROM and Yes no lymphadenopathy Resp Effort & Inspection: normal respiratory effort Auscultation: clear to auscultation bilaterally, no crackles, no rales, no rhonchi and no wheezes Cardio Rate: regular rate Rhythm: regular rhythm Skin General skin exam: no rashes or lesions noted Neuro General: patient oriented x3 Gait exam (Neuro): Normal gait present Extrem General: Yes normal to inspection, Yes full ROM and No edema Psych Affect: normal affect Attitude: cooperative Insight: Good insight present (Psych) Judgement: Good judgement present (Psych) Coding Level of Care Code Est Pt Level 4 (30533) Diagnoses Headache R51.9 Chest pain R07.9 Family history of heart disease Z82.49 Insomnia G47.00 Anxiety F41.9 Assessment & Plan Assessment & Plan (1) Headache: Code(s): R51.9 - Headache, unspecified Category: Medical Plan: The patient's migraines are reportedly well-controlled with as-needed sumatriptan, and she no longer feels the need for neurologic follow-up. The prescription for sumatriptan will be taken over by this practice. (2) Chest pain: Code(s): R07.9 - Chest pain, unspecified Category: Medical Plan: The patient's chest pain is atypical, occurring at rest, but concerning given her strong family history of cardiac disease. While anxiety is a likely contributor due to significant life stressors and a previous ER visit diagnosis, it is important to first rule out cardiopulmonary etiologies. To investigate, a chest X-ray and an echocardiogram will be ordered to assess for pulmonary and cardiac structural issues, respectively. The patient was advised to acquire a blood pressure cuff to monitor her blood pressure at home, especially during symptomatic episodes, and was provided with a log to track her chest pain. She was instructed to go to the ER for any chest pain that does not resolve on its own. (3) Family history of heart disease: Code(s): Z82.49 - Family history of ischemic heart disease and other diseases of the circulatory system Category: Medical Plan: See above plan (4) Insomnia: Code(s): G47.00 - Insomnia, unspecified Category: Medical Plan: The patient reports difficulty falling asleep, which is likely related to stress. It was recommended she try [id number]-[id number] melatonin and magnesium to aid with sleep initiation. If these are not effective, prescription medication options can be considered. (5) Anxiety: Code(s): F41.9 - Anxiety disorder, unspecified Category: Medical Plan: Continue to follow with the counselor bi-weekly for anxiety management. Declines medication at this time. Plan This note was constructed using voice recognition software. While every effort has been made to ensure accuracy and geospatial information technologist, still areas may have been included sometimes these areas may affect the content or meeting of the given symptoms. Total time spent caring for the patient today was 30 minutes. This includes time spent before the visit reviewing the chart, time spent during the visit, and time spent after the visit and documentation. Patient was informed and verbally consented to the use of an ambient scribe for clinic note documentation during this visit. Orders: Orders XR chest 2V Today R07.9 - Chest pain, unspecified Vitamin D 25-OH Total Today Z13.21 - Encounter for screening for nutritional disorder Lipid Panel Today Z13.220 - Encounter for screening for lipoid disorders CA echo transthoracic complete Today R07.9 - Chest pain, unspecified TSH reflex Free T4 Today Z13.29 - Encounter for screening for other suspected endocrine disorder Vitamin B12 and Folate Today Z13.21 - Encounter for screening for nutritional disorder Complete Blood Count Auto Diff Today Z13.0 - Encounter for screening for diseases of the blood and blood-forming organs and certain disorders involving the immune mechanism Comprehensive Met. Panel Today Z00.00 - Encounter for general adult medical examination without abnormal findings
--- OUTSIDE RECORDS SUMMARY | 2025-01-29 17:48 | XMS_ITS | Patient Health Record ---
Author Organization [facility] Address [address] [place] [address] Care Team Providers Care Sas Programmer Analyst Name Role Phone Dariel Bai MD Primary Care Provider Jensen Merrill Unavailable [phone] Allergies No Known Allergies Reason For Referral No Information Medications Medication SIG (Take, Route, Frequency, Duration) Notes Start Date End Date Status Amitriptyline HCl 50 MG Oral; Duration: 90 Active SUMAtriptan Succinate 50 MG Oral; Duration: 9 Active Omeprazole 20 MG Oral; Duration: 30 started 04/07/21 Active Dicyclomine HCl 10 MG 1 or 2 Orally Q 6 hours prn abdominal pain/discomfort/ cramps; Duration: 30 day(s) Please tell patient to call [...] Problem Status W/U Status Risk Notes Problem Epigastric pain (78198549) Epigastric pain (R10.13) Active confirmed Problem Generalized abdominal pain (817038770) Abdominal pain, diffuse (R10.84) Active confirmed Plan Of Treatment Future Test Test Name Order Date UPPER GI ENDOSCOPY 04/13/2021 Insurance Providers Payer Name Payer Address Payer Phone Subscriber Number Group Number Insured Name Patient Relationship to Insured Coverage Start Date Coverage End Date [facility] [address] [facility] [place] [phone] [id number] ARACELI SALDIVAR Self - patient is the insured MEDICAID OF [employer] [address] [place] [address] [id number] CAROLINE Buckley ARACELI Self - patient is the insured Medical (General) History Medical History History ICD Code Migraine Denies [place],DM,CVA,Lung disease,renal dise ase Neg. colonoscopy with Dr. Regan in 2018 , including biopsies Neg EGD except for Hpylori w ith Dr. Regan in 2018--normal duodenal bioosies, small hiatal hernia, minimal gastritis--the H.pylori was reportedly treated Surgical History Surgery Date(Month/Year) CCY 2019 Ectopic 2010
--- OUTSIDE RECORDS SUMMARY | 2025-01-29 17:48 | XMS_ITS | Patient Health Record ---
[facility] Address [address] [place] [address] Care Team Providers Care Forest Resources Professor Name Role Phone Dariel Bai MD Primary Care Provider Hi Quach Unavailable [phone] Allergies No Known Allergies Reason For Referral No Information Medications Medication SIG (Take, Route, Frequency, Duration) Notes Start Date End Date Status Levonorgestrel Activ e Dicyclomine HCl Acti ve [id number]-Yejthacv Active Amitriptyline & Diet Manage Pr Active [...] W/U Status Risk Notes Problem Tinea unguium (247071882) Tinea unguium (B35.1) Active confirmed Response to treatment,Impr chon, Unresolved Plan Of Treatment No Information Insurance Providers Payer Name Payer Address Payer Phone Subscriber Number Group Number Insured Name Patient Relationship to Insured Coverage Start Date Coverage End Date [facility] [address] [place] [address] [phone] [id number] Judy Brooks Self - patient is the insured Medical (General) History Medical History History ICD Code covid-19 Gastroesophageal reflux disease (GERD) Headaches/Migraines Gall bladder problems Tuberculosis Eptopic Surgical History Surgery Date(Month/Year) colonoscopy salpingo-oophorectomy cholecystectomy 2019 eptopic 2009
== END 2025-01-29 15:07 | disposition home or self-care (01) ==
LOC: HO.HMCH 14:23
DX: R51.9 Headache, unspecified (principal); R07.9 Chest pain, unspecified; Z82.49 Family history of ischemic heart disease and other diseases of the circulatory system; G47.00 Insomnia, unspecified; F41.9 Anxiety disorder, unspecified

== ENCOUNTER 2025-02-02 07:23 | Outpatient (REF) | payer OTHER, SELFPAY ==
[2025-02-02 07:35] LABS: MANUAL DIFF FLAG NO
--- OUTSIDE RECORDS SUMMARY | 2025-02-02 07:46 | XMS_ITS | Patient Health Record ---
Author Organization [facility] Address [address] [place] [address] Care Team Providers Care Water Treatment Plant Engineer Name Role Phone Dariel Bai MD Primary Care Provider Hi Quach Unavailable [phone] Allergies No Known Allergies Reason For Referral No Information Medications Medication SIG (Take, Route, Frequency, Duration) Notes Start Date End Date Status Levonorgestrel Activ e Dicyclomine HCl Acti ve [id number]-MLA-Hbjnkefp Active Amitriptyline & Diet Manage Pr Active [...] W/U Status Risk Notes Problem Tinea unguium (292212478) Tinea unguium (B35.1) Active confirmed Response to treatment,Impr chon, Unresolved Plan Of Treatment No Information Insurance Providers Payer Name Payer Address Payer Phone Subscriber Number Group Number Insured Name Patient Relationship to Insured Coverage Start Date Coverage End Date [facility] [address] [place] [address] [phone] [id number] Judy Brooks Self - patient is the insured Medical (General) History Medical History History ICD Code covid-19 Gastroesophageal reflux disease (GERD) Headaches/Migraines Gall bladder problems Tuberculosis Eptopic Surgical History Surgery Date(Month/Year) colonoscopy salpingo-oophorectomy cholecystectomy 2019 eptopic 2009
--- OUTSIDE RECORDS SUMMARY | 2025-02-02 07:47 | XMS_ITS | Patient Health Record ---
Author Organization [facility] Address [address] [place] [address] Care Team Providers Care Is Consultant Name Role Phone Dariel Bai MD Primary Care Provider Jensen Merrill Unavailable [phone] Allergies No Known Allergies Reason For Referral No Information Medications Medication SIG (Take, Route, Frequency, Duration) Notes Start Date End Date Status Amitriptyline HCl 50 MG Tablet Oral; Duration: 90 Active SUMAtriptan Succinate 50 MG Tablet Oral; Duration: 9 Active Omeprazole 20 MG Capsule Delayed Release Oral; Duration: 30 started 04/07/21 Active Dicyclomine HCl 10 MG Capsule 1 or 2 Orally Q 6 hours prn abdominal pain/discomfort/ cramps; Duration: 30 day(s) Please tell patient to call my office to schedule an appointment. Thanks Active Immunizations Vaccine Route Administration Date Status Comme nts Influenza Unknown 04/13/2021 Refused Social History Tobacco Use: Social History Observation Description Date Details (start date - stop date) Never Smoker NA - NA Social History Drugs/Alcohol: Social Info Question Answer Notes Alcohol Screen Did you have a drink containing alcohol in the past year? Yes How often did you have a drink containing alcohol in the past year? Monthly or less (1 point) How many drinks did you have on a typical day when you were drinking in the past year? 1 or 2 drinks (0 point) How often did you have 6 or more drinks on one occasion in the past year? 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[place] [facility] Notes: Nonsmoker; no sig alcohol Problems Problem Type SNOMED Code ICD Code Onset Dates Problem Status W/U Status Risk Notes Problem Epigastric pain (62635049) Epigastric pain (R10.13) Active confirmed Problem Generalized abdominal pain (456859880) Abdominal pain, diffuse (R10.84) Active confirmed Plan Of Treatment Future Test Test Name Order Date UPPER GI ENDOSCOPY 04/13/2021 Insurance Providers Payer Name Payer Address Payer Phone Subscriber Number Group Number Insured Name Patient Relationship to Insured Coverage Start Date Coverage End Date [facility] [address] [place] [phone] [id number] CAROLINE Buckley ARACELI Self - patient is the insured MEDICAID OF [employer] [address] [place] [address] [id number] ARACELI SALDIVAR Self - patient is the insured Medical (General) History Medical History History ICD Code Migraine Denies [place],DM,CVA,Lung disease,renal dise ase Neg. colonoscopy with Dr. Regan in 2018 , including biopsies Neg EGD except for Hpylori w ith Dr. Regan in 2018--normal duodenal bioosies, small hiatal hernia, minimal gastritis--the H.pylori was reportedly treated Surgical History Surgery Date(Month/Year) CCY 2019 Ectopic 2010
[2025-02-02 07:52] LABS: Hematocrit 42.3 % (37.0-47.0); Hemoglobin 14.0 g/dl (12.0-16.0); Imm Gran Abs Auto 0.00 X10*3/uL (0.00-0.03); Imm Gran Pct Auto 0.0 % (0.0-0.4); Lymphocytes Absolute Auto 1.4 X10*3/uL (1.2-4.9); Mean Corpuscular HGB Conc 33.1 g/dl (31.0-35.0); Mean Corpuscular Hemoglobin 29.9 pg (27.0-33.0); Mean Corpuscular Volume 90.4 fL (80.0-98.0); NRBC Abs Auto 0.000 X10*3/uL (0.0-0.012); NRBC Pct Auto 0.0 /100WBC (0.0-0.2); Platelet Count 236 X10*3/uL (160-400); Red Blood Count 4.68 X10*6/uL (4.20-5.50); White Blood Count 3.4 X10*3/uL (4.8-10.8)
[2025-02-02 08:22] LABS: Alanine Aminotransferase 11 U/L (0-31); Albumin Level 4.7 g/dL (3.5-5.0); Alkaline Phosphatase 57 U/L (39-117); Anion Gap 9 (12-20); Aspartate Amino Transferase 19 U/L (5-31); Blood Urea Nitrogen 13 mg/dL (9-16); Calcium 9.1 mg/dL (8.4-10.2); Carbon Dioxide 29 mmol/L (22-29); Chloride 104 mmol/L (96-108); Cholesterol 155 mg/dL (<200); Estimated Glomerular Filt Rate > 60; HDL Cholesterol 41 mg/dL (>40); Potassium 3.8 mmol/L (3.3-5.1); Sodium 138 mmol/L (135-145); Total Protein 7.5 g/dL (6.5-8.0); Triglycerides 115 mg/dL (<150)
[2025-02-02 08:53] LABS: Folate 9.7 ng/mL (> or = 4.0); Vitamin B12 308 pg/mL (200-900)
== END 2025-02-02 07:24 | disposition home or self-care (01) ==
LOC: HO.LAB 07:23
DX: Z00.00 Encounter for general adult medical examination without abnormal findings (principal); Z13.29 Encounter for screening for other suspected endocrine disorder; Z13.21 Encounter for screening for nutritional disorder; Z13.220 Encounter for screening for lipoid disorders; Z13.0 Encounter for screening for diseases of the blood and blood-forming organs and certain disorders involving the immune mechanism; Z13.6 Encounter for screening for cardiovascular disorders
CPT/HCPCS: 36415; 80053; 80061; 82306; 82607; 82746; 84443; 85025

== ENCOUNTER 2025-02-06 14:55 | Outpatient (REF) | payer OTHER, SELFPAY ==
--- NOTE | ~2025-02-06 | XR_ITS ---
EXAMINATION: XR CHEST 2 VIEWS HISTORY: R07.9 - Chest pain, unspecified COMPARISON: Comparison is made with the prior examination dated 04/14/2024. FINDINGS: PA and lateral views of the chest are submitted. The lungs are expanded and clear. There is no pleural effusion, pneumothorax, or pulmonary vascular congestion. The heart is normal in size. The bones are intact. XR/XR chest 2V IMPRESSION: No acute cardiopulmonary abnormality. Electronically signed by: Jensen Prieto MD 02/06/2025 03:22 PM JONAH BULL
--- OUTSIDE RECORDS SUMMARY | 2025-02-06 15:08 | XMS_ITS | Patient Health Record ---
Author Organization [facility] Address [address] [place] [address] Care Team Providers Care Manager Infusion Name Role Phone Dariel Bai MD Primary Care Provider Hi Quach Unavailable [phone] Allergies No Known Allergies Reason For Referral No Information Medications Medication SIG (Take, Route, Frequency, Duration) Notes Start Date End Date Status Levonorgestrel Activ e Dicyclomine HCl Acti ve Qjtpnuyvcg-[id number]-Itxwxaue Active Amitriptyline & Diet Manage Pr Active [...] W/U Status Risk Notes Problem Tinea unguium (328354826) Tinea unguium (B35.1) Active confirmed Response to treatment,Impr chon, Unresolved Plan Of Treatment No Information Insurance Providers Payer Name Payer Address Payer Phone Subscriber Number Group Number Insured Name Patient Relationship to Insured Coverage Start Date Coverage End Date [facility] [address] [place] [address] [phone] [id number] Judy Brooks Self - patient is the insured Medical (General) History Medical History History ICD Code covid-19 Gastroesophageal reflux disease (GERD) Headaches/Migraines Gall bladder problems Tuberculosis Eptopic Surgical History Surgery Date(Month/Year) colonoscopy salpingo-oophorectomy cholecystectomy 2019 eptopic 2009
--- OUTSIDE RECORDS SUMMARY | 2025-02-06 15:08 | XMS_ITS | Patient Health Record ---
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[place] [facility] Notes: Nonsmoker; no sig alcohol Problems Problem Type SNOMED Code ICD Code Onset Dates Problem Status W/U Status Risk Notes Problem Epigastric pain (93819761) Epigastric pain (R10.13) Active confirmed Problem Generalized abdominal pain (047154713) Abdominal pain, diffuse (R10.84) Active confirmed Plan Of Treatment Future Test Test Name Order Date UPPER GI ENDOSCOPY 04/13/2021 Insurance Providers Payer Name Payer Address Payer Phone Subscriber Number Group Number Insured Name Patient Relationship to Insured Coverage Start Date Coverage End Date [facility] [address] [facility] [phone] [id number] CAROLINE Buckley ARACELI Self - patient is the insured MEDICAID OF [employer] [address] [place] [address] [id number] ARACELI SLADIVAR Self - patient is the insured Medical (General) History Medical History History ICD Code Migraine Denies [place],DM,CVA,Lung disease,renal dise ase Neg. colonoscopy with Dr. Regan in 2018 , including biopsies Neg EGD except for Hpylori w ith Dr. Regan in 2018--normal duodenal bioosies, small hiatal hernia, minimal gastritis--the H.pylori was reportedly treated Surgical History Surgery Date(Month/Year) CCY 2019 Ectopic 2010
== END 2025-02-06 14:56 | disposition home or self-care (01) ==
LOC: HO.XRAY 14:55
DX: R07.9 Chest pain, unspecified (principal)
CPT/HCPCS: 71046

== ENCOUNTER → 2025-02-06 14:58 | Outpatient (BNV) | payer OTHER, SELFPAY | PROVIDERS: Visit Provider Radiology Diagnostic Radiology | DX: R07.9 Chest pain, unspecified (principal) | CPT/HCPCS: 71046 ==

== ENCOUNTER 2025-02-23 15:51 | Outpatient (AMB) | payer OTHER, SELFPAY ==
[2025-02-23 16:03] VITALS: BP 106/74; PULSE 71; TEMP 36.8; O2SAT 99; BMI 22.0
--- NOTE | 2025-02-23 16:03 | MHC.OFFWIV ---
Intake Vital Signs 02/23/25 16:03 Height 5 ft 4 in Weight 128 lb BMI 22.0 BP 106/74 Blood Pressure Location Lt brachial Position Sitting Pulse 71 Pulse Source Pulse Oximeter Temp 98.2 F Temp Source Oral Pulse Oximetry (%) 99 Oxygen Delivery Method Room Air Intake Visit Reasons: EP Sore throat, congestion, cough Intake Note: pt presents with chest congestion and dry coughing that is worse at night, sore throat and loss of voice x5 days Patient Tobacco Use Status: Never used Tobacco Allergies No Known Allergies (No Known Allergies*) Allergy (Verified 02/23/25 16:06) Do you need a note to return to daycare/school/sports/work: No HPI HPI Comments History of Present Illness Details History - The patient is a 45-year-old female presenting with symptoms of an upper respiratory infection that began approximately four days ago. - Her symptoms include sore throat, significant rhinorrhea, cough, and dyspnea, particularly at night. - She describes the cough as dry and denies producing any sputum. - Associated symptoms she denies include fever, vomiting, and ear pain. - She has been treating her symptoms with [id number] cold and flu medication without improvement. 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 - She denies fever, chills, CP, SOB, abd pain, or n/v/d. Physical Exam General: Cooperative, healthy appearing, comfortable and no acute distress Orientation/consciousness: Patient oriented x3 Limitations: No limitations Head: Normal to inspection Ears: Hearing grossly normal bilaterally, external ears normal and TM's normal bilaterally Nose: Runny nose present Face and sinus: Sinuses nontender to palpation. Mouth: Normal oral and palatal mucosa present and moist mucous membranes noted. Throat: Throat appears irritated. Tonsils normal. Uvula is midline. Posterior oropharynx with erythema and no exudates. Eyes: Appearance normal, both eyes and all related structures Neck: Normal visual inspection, full ROM. No lymphadenopathy noted. Respiratory: Clear to auscultation bilaterally. Normal respiratory effort, able to speak in complete sentences. No respiratory distress, not tachypneic, no tripod positioning and no use of accessory muscles. Cardiovascular: Regular rate and rhythm. Normal S1 and S2 Skin: No rashes or lesions noted Patient was informed and verbally consented to the use of an ambient scribe for clinic note documentation during this visit [facility] Medical History (Updated 01/29/25 @ 15:28 by Mary Ospina PA-C) Hx of migraines Pelvic pain Microscopic hematuria Insomnia Acute respiratory disease GERD (gastroesophageal reflux disease) COVID-19 vaccine series completed Hx of migraine headaches Hx of ectopic Surgical History History of esophagogastroduodenoscopy (EGD) H/O colonoscopy History of salpingectomy Hx of cholecystectomy Family History Mother Hyperlipemia HTN (hypertension) Paternal Uncle Heart disease Maternal Aunt Diabetes Paternal Aunt Diabetes Social History Household Members: Spouse Household Members Other:: son Housing: House Are you a primary home care liaison to a significant other at home: No Do you presently have visiting nurse or other home services: No Alcohol intake: never Patient Tobacco Use Status: Never used Tobacco e-Cigarette/Vaping Use: Never Used Second Hand Smoke Exposure: No service: No Current occupational status: employed 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 Sexual orientation: Straight/Heterosexual Gender identity: Female Cognitive needs: No Hearing needs: No Vision needs: No Female Reproductive History Menstrual Age of Menarche: 11 Review of Systems Const All systems reviewed & are unremarkable except as noted in HPI and below Physical Exam Vital Signs: Last Vital Signs Temp 98.2 F 02/23/25 16:03 Pulse 71 02/23/25 16:03 BP 106/74 02/23/25 16:03 Pulse Ox 99 02/23/25 16:03 Oxygen Delivery Method Room Air 02/23/25 16:03 BMI result Body Mass Index 22.0 Results AMB Rapid Strep AMB Rapid Strep Negative Last Edit by Alisson Barboza CMA on 02/23/25 16:20 Results Reviewed Results Reviewed: Laboratory Last Values Strep Scn Rapid Clinic Negative 02/23/25 16:19 Assessment & Plan Assessment & Plan (1) URI (upper respiratory infection): Code(s): J06.9 - Acute upper respiratory infection, unspecified Qualifiers: URI type: unspecified viral URI Qualified Code(s): J06.9 - Acute upper respiratory infection, unspecified Plan Most likely Acute Upper Respiratory Infection vs covid vs flu vs RSV rapid was negative plan - The patient's symptoms are consistent with a viral upper respiratory infection, with a negative strep culture ruling out streptococcal pharyngitis. - A viral culture panel for COVID-19, influenza, and RSV has been collected, with results pending. - A prescription for cough medication pills has been sent to the pharmacy. - The patient was advised on supportive care measures such as tea and honey. - A work note can be provided if the patient requests one. - Will follow up with the patient by phone tomorrow to discuss the results of the viral culture. Orders: Orders SARS-CoV2/FLU/RSV Today R09.89 - Other specified symptoms and signs involving the circulatory and respiratory systems AMB Rapid Strep Screen Today Z13.9 - Encounter for screening, unspecified Medications: New benzonatate 100 mg PO bid-tid PRN 21 caps 0RF Cough 7 days Coding Level of Care Code Est Pt Level 3 (85561) Diagnoses Viral upper respiratory tract infection J06.9 URI type: unspecified viral URI
--- OUTSIDE RECORDS SUMMARY | 2025-02-24 01:28 | XMS_ITS | Patient Health Record ---
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 [facility] Notes: Nonsmoker; no sig alcohol Problems Problem Type SNOMED Code ICD Code Onset Dates Problem Status W/U Status Risk Notes Problem Epigastric pain (67000346) Epigastric pain (R10.13) Active confirmed Problem Generalized abdominal pain (505184121) Abdominal pain, diffuse (R10.84) Active confirmed Plan Of Treatment Future Test Test Name Order Date UPPER GI ENDOSCOPY 04/13/2021 Insurance Providers Payer Name Payer Address Payer Phone Subscriber Number Group Number Insured Name Patient Relationship to Insured Coverage Start Date Coverage End Date [facility] [address] [facility] [place] [phone] [id number] CAROLINE Buckley ARACELI Self - patient is the insured MEDICAID OF [employer] [address] [place] [address] [id number] ARACELI SALDIVAR Self - patient is the insured Medical (General) History Medical History History ICD Code Migraine Denies LA,DM,CVA,Lung disease,renal dise ase Neg. colonoscopy with Dr. Regan in 2018 , including biopsies Neg EGD except for Hpylori w ith Dr. Regan in 2018--normal duodenal bioosies, small hiatal hernia, minimal gastritis--the H.pylori was reportedly treated Surgical History Surgery Date(Month/Year) CCY 2019 Ectopic 2010
== END 2025-02-23 16:34 | disposition home or self-care (01) ==
PROVIDERS: Visit Provider Physician Assistant Medical
DX: J06.9 Acute upper respiratory infection, unspecified (principal); Z13.9 Encounter for screening, unspecified

== ENCOUNTER 2025-02-23 15:51 | Outpatient (REF) | payer OTHER, SELFPAY ==
[2025-02-24 10:49] LABS: Resp Syncy Virus RNA Qual PCR NEGATIVE (Negative); SARS COV2 PCR INHOUSE NEGATIVE (Negative)
== END 2025-02-23 15:52 | disposition home or self-care (01) ==
LOC: HO.LNP 15:51
PROVIDERS: Physician Assistant Medical
DX: J06.9 Acute upper respiratory infection, unspecified (principal); R09.89 Other specified symptoms and signs involving the circulatory and respiratory systems
CPT/HCPCS: 87637; 87880

== ENCOUNTER → 2025-03-10 07:39 | Outpatient (REF) | payer OTHER, SELFPAY ==
--- NOTE | 2025-03-10 07:42 | CA_ITS ---
Transthoracic Echocardiogram Patient (Last, First, Middle): Judy Martinez, Gender: F Date of : 1980 Age: 45 Procedure Date: 03/10/2025 Procedure Type: Transthoracic Echocardiogram Location: OP Height: 162.56 cm Weight: 58.06 kg BSA: 1.62 m2 Heart Rate: 60 bpm BP: 106 / 74 mmHg Sheet Heater: JUSTIN Referring MD: Mary Opsina PA-C Motor Vehicle Technician: Todd Henry MD Symptoms: R07.9 - Chest pain, unspecified Study Quality: Adequate ECG Rhythm: Sinus Conclusions: - Normal study Findings Left Ventricle Normal left ventricular size, thickness, and systolic function. The visually estimated ejection fraction is between 60-65%. Diastolic function is normal for age. Right Ventricle Normal right ventricular cavity size and systolic function. Atria Both atria are normal in size. There is no evidence of interatrial shunt. Aortic Valve Normal aortic valve structure and function. There is no aortic valve stenosis. There is no aortic valve regurgitation. Mitral Valve Normal mitral valve structure and function. There is trace mitral valve regurgitation. There is no mitral valve stenosis. Pulmonic Valve The pulmonic valve is normal. There is trace to mild pulmonic valve regurgitation. Tricuspid Valve Normal tricuspid valve structure. There is trace tricuspid valve regurgitation. The right ventricular systolic pressure is normal. The right ventricular systolic pressure is 19 mmHg. Normal right atrial pressure. There is no evidence of pulmonary hypertension. Great Vessels All visible segments of the aorta are normal in size. The visualized portions of the pulmonary artery and branches are normal. Venous The inferior vena cava is normal in size and collapses greater than 50% with inspiration. Pericardium/Pleural There is no evidence of pericardial effusion. Prior Study Comparison No prior study available for comparison. Measurements 2D Linear Measurements IVSd: 0.72 0.6-0.9/0.6-1.0 cm LVIDd: 4.57 3.9-5.3/4.2-5.9 cm LVIDd Index: 2.82 2.4-3.2/2.2-3.1 cm/m2 LVIDs: 3.37 2.0-3.6 cm LVPWd: 0.54 0.7-1.1 cm LA Diam: 3.40 2.7-3.8/3.0-4.0 cm LAIDs Index: 2.10 1.5-2.3 cm/m2 LV Mass: 106.71 67-162/88-224 g LV Mass Index: 65.87 43-95/49-115 g/m2 LVOT Diam: 2.10 3.0+(-)1.3 cm 2D Systolic Function EF 4C: 56.20 >55% EF 2C: 64.90 >55% EF BiP: 61.60 >55% Mitral Valve MV Pk E: 0.71 MV PK A: 0.46 MV Decel Time: 175.00 E/A: 1.50 E'Lateral: 11.90 E'Medial: 11.40 E/E' Med: 6.20 E/E' Lat: 5.90 PHT: 51.00 MVA PHT: 4.31 Decel Braxton: 4.05 Aortic Valve AoV Pk Samuel: 0.96 AoV Pk Grad: 4.00 YARA: 3.50 LVOT LVOT Pk Samuel: 0.97 LVOT Mn Samuel: 0.70 LVOT VTI: 0.20 LVOT Pk Grad: 4.00 LVOT Mn Grad: 2.00 LVOT Diam: 2.10 LVOT Area: 3.46 Diastolic Function MV Pk E: 0.71 MV Pk A: 0.46 E/A: 1.50 E'Medial: 11.40 E/E' Med: 6.20 E' Laterial: 11.90 E/E' Lat: 5.90 Right Ventricle TAPSE (mm): 17.10 TVS' Samuel: 9.80 Tricuspid Valve TR Pk Samuel: 2.03 TR Pk Grad: 16.00 RA Press: 3.00 RVSP: 19.00 Great Vessels Aorta Sinus of Valsalva: 3.70 2.0-3.5 cm Ao Asc: 3.20 2.1-3.4 cm Ao Arch: 2.50 Pulmonary Veins Pulm Vein S/D 1.00 Pulmonary Valve PV Pk Samuel: 0.90 Peak PV Grad: 3.00 RI Pk Samuel: 1.82 Updated in Other Vendor System with Status of Final Todd Henry MD electronically signed on 03/11/2025 1:59:05 PM with status of Final
--- OUTSIDE RECORDS SUMMARY | 2025-03-10 07:43 | XMS_ITS | Patient Health Record ---
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 [facility] Notes: Nonsmoker; no sig alcohol Problems Problem Type SNOMED Code ICD Code Onset Dates Problem Status W/U Status Risk Notes Problem Epigastric pain (41335597) Epigastric pain (R10.13) Active confirmed Problem Generalized abdominal pain (840685543) Abdominal pain, diffuse (R10.84) Active confirmed Plan Of Treatment Future Test Test Name Order Date UPPER GI ENDOSCOPY 04/13/2021 Insurance Providers Payer Name Payer Address Payer Phone Subscriber Number Group Number Insured Name Patient Relationship to Insured Coverage Start Date Coverage End Date [facility] [address] [place] [phone] [id number] CAROLINE Buckley ARACELI Self - patient is the insured MEDICAID OF [employer] [address] [place] [address] [id number] ARACELI SALDIVAR Self - patient is the insured Medical (General) History Medical History History ICD Code Migraine Denies MS,DM,CVA,Lung disease,renal dise ase Neg. colonoscopy with Dr. Regan in 2018 , including biopsies Neg EGD except for Hpylori w ith Dr. Regan in 2018--normal duodenal bioosies, small hiatal hernia, minimal gastritis--the H.pylori was reportedly treated Surgical History Surgery Date(Month/Year) CCY 2019 Ectopic 2010
--- OUTSIDE RECORDS SUMMARY | 2025-03-10 07:43 | XMS_ITS | Patient Health Record ---
[facility] Address [address] [place] [address] Care Team Providers Care Neighborhood Coordinator Name Role Phone Dariel Bai MD Primary Care Provider Hi Quach Unavailable [phone] Allergies No Known Allergies Reason For Referral No Information Medications Medication SIG (Take, Route, Frequency, Duration) Notes Start Date End Date Status Levonorgestrel Activ e Dicyclomine HCl Acti ve [id number]-[id number]-[id number] Active Amitriptyline & Diet Manage Pr Active [...] W/U Status Risk Notes Problem Tinea unguium (028963106) Tinea unguium (B35.1) Active confirmed Response to treatment,Impr chon, Unresolved Plan Of Treatment No Information Insurance Providers Payer Name Payer Address Payer Phone Subscriber Number Group Number Insured Name Patient Relationship to Insured Coverage Start Date Coverage End Date [facility] [address] [place] [address] [phone] [id number] Judy Brooks Self - patient is the insured Medical (General) History Medical History History ICD Code covid-19 Gastroesophageal reflux disease (GERD) Headaches/Migraines Gall bladder problems Tuberculosis Eptopic Surgical History Surgery Date(Month/Year) colonoscopy salpingo-oophorectomy cholecystectomy 2019 eptopic 2009
== END ==
LOC: HO.CARD 07:39
DX: R07.9 Chest pain, unspecified (principal)
CPT/HCPCS: 93306

== ENCOUNTER → 2025-03-10 07:42 | Outpatient (BNV) | payer OTHER, SELFPAY | PROVIDERS: Visit Provider Internal Medicine Cardiovascular Disease | DX: R07.9 Chest pain, unspecified (principal) | CPT/HCPCS: 93306 ==